=== PATIENT | female | born 1970 | race Caucasian/White ===

== ENCOUNTER 2017-02-03 15:54 | Emergency (ER) | payer MEDICARE, MEDICAID ==
[~2017-02-03] VITALS: Ht 165.1 cm; Wt 93.0 kg
[~2017-02-03 15:54] MED LIST: ACCURETIC1 TAB OR; ALPRAZOLAM1 MG PO; AMBIEN5 MG PO; AMITRIPTYLIN25 MG PO; AMOXICILLIN/PO500 MG PO; AMOXICILLIN500 MG PO; ANTIVERT OR; ASPIRIN EC81 MG PO; ATARAX; ATARAX PO; ATIVAN0.5 MG PO; ATIVAN1 M1 OR; BACTRIM DS1 TAB PO; BENAZEPRIL10 MG PO; BUPAP 50-300 MG1 TAB PO; BUPROPION150 M1 PO; BUSPIRONE5 MG PO; CLEOCIN300 MG PO; CORICIDN HBP OR; CRESTOR10 MG PO; FIORICET PO; FISH OIL1000 MG PO; FLAGYL500 MG OR; FLEXERIL OR; FLEXERIL PO; FLEXERIL10 MG PO; FOLIC ACID1 MG PO; HYDROCHLOROT12.5 M1 OR; HYDROCHLOROT25 MG PO; HYDROXYZ HCL25 MG OR; HYDROXYZ PAM25 MG OR; HYDROXYZINE HCL50 MG PO; LEVOTHYROXIN50 MC1 PO; LEVOTHYROXIN50 MCG PO; LISINOP/HCTZ1 TAB OR; LORATADINE10 M1 PO; LORAZEPAM0.5 MG PO; LORTAB 10 PO; LORTAB 10-325 M1 TAB PO; LORTAB 1010 MG PO; LORTAB5 PO; LOTENSIN HCT1 TAB PO; METFORMIN500 MG PO; METOPROL TAR50 MG PO; METOPROLOL25 M1 PO; MIRTAZAPINE15 MG PO; NITROGLYCER0.4 MG PO; NITROSTAT0.4 MG SL; OMEGA-31000 MG OR; ONDANSETRON4 MG PO; PANCOF EXP OR; PERCOCET 5/321 COMBO PO; PERCOCET 5/325M1 TAB PO; PERCOCET1 TA2 PO; PRAVACHOL80 MG PO; PRAVASTATIN SOD20 MG PO; PREDNISONE5 MG OR; PREVPAC OR; PRILOSEC20 MG PO; PROAIR HFA IN; PROTONIX40 MG PO; PROVENTIL IN; PYRIDIUM200 MG PO; QUINAPRIL20 MG PO; QVAR80 MCG IN; RANITIDINE150 M1 PO; RANITIDINE150 MG PO; SIMVASTATIN40 MG PO; SUCRALFATE1 GM PO; TIZANIDINE4 MG PO; TOPIRAMATE50 MG PO; TORADOL OR; TRAMADOL HCL50 MG PO; TRICOR145 MG PO; TYLENOL325 MG PO; TYLENOL500 MG OR; ULTRAM50 M1 PO; ULTRAM50 MG OR; VISTARIL50 MG PO; VITAMIN B-12100 MCG PO; WELLBUTRIN SR150 MG PO; XANAX0.25 MG OR; ZITHROMAX250 MG OR; ZOCOR20 MG OR; ZOCOR20 MG PO; ZOFRAN ODT4 MG PO; ZPAK OR
[2017-02-03 16:32] LABS: HEMATOCRIT 39.4 % (37.0-47.0); HEMOGLOBIN 13.2 g/dl (12.0-16.0); IMMATURE GRANULOCYTES 0.2 % (0.0-1.0); MEAN CELL VOLUME 92.5 fL CALC (80.0-100.0); MEAN CORPUSCULAR HGB CONC 33.5 g/L CALC (32.0-36.0); NEUT# 9.68 thou/uL (2.00-7.15); RED BLOOD COUNT 4.26 mill/uL (4.20-5.60)
[2017-02-03] MEDS ORDERED: BENAZEPRIL10 MG PO (16:41)
[2017-02-03 17:07] LABS: ALBUMIN 4.3 g/dL (3.2-5.0); ALKALINE PHOSPHATASE 83 u/l (38-126); ANION GAP 15 (6-22 (CALC)); BILIRUBIN, TOTAL 0.6 mg/dL (0.0-1.4); BUN 12 mg/dL (7-17); BUN/CREATININE RATIO 17 (12-20 (CALC)); CALCIUM 9.1 mg/dL (8.4-10.2); CARBON DIOXIDE 23 mmol/l (22-30); CHLORIDE 108 mmol/l (95-108); CREATININE 0.7 mg/dL (0.5-1.0); GFR > 60 ML/MIN (>=60 (CALC)); GFR FOR AFR.AMER. > 60 ML/MIN (>=60 (CALC)); GLUCOSE 88 mg/dL (65-105); POTASSIUM 4.2 mmol/l (3.5-5.1); SGOT/AST 39 u/l (14-36); SGPT/ALT 37 u/l (9-52); SODIUM 142 mmol/l (137-146); TOTAL PROTEIN 7.5 g/dL (6.3-8.2)
[2017-02-03 17:18] LABS: MYOGLOBIN 29 ng/mL (0 - 62)
[2017-02-03] MEDS ORDERED: ZITHROMAX250 MG PO (17:28)
[2017-02-03] MEDS ORDERED: PREDNISONE10 MG PO (17:28)
[2017-02-03] MEDS ORDERED: TYLENOL # 31 TA1 PO (17:28)
[2017-02-03 17:35] VITALS: BP 109/49
== END 2017-02-03 17:58 | disposition home or self-care (01) ==
LOC: ED 15:54
PROVIDERS: Emergency Medicine
DX: J20.9 Acute bronchitis, unspecified (principal); R06.02 Shortness of breath; R05 Cough; R06.2 Wheezing; F17.210 Nicotine dependence, cigarettes, uncomplicated; I10 Essential (primary) hypertension

== ENCOUNTER 2017-02-05 13:07 | Emergency (ER) | payer MEDICARE, MEDICAID ==
[~2017-02-05] VITALS: Ht 165.1 cm; Wt 100.0 kg
[~2017-02-05 13:07] MED LIST changes: +PREDNISONE10 MG PO; +TYLENOL # 31 TA1 PO; +ZITHROMAX250 MG PO
[2017-02-05 13:44] VITALS: BP 158/70
== END 2017-02-05 13:46 | disposition home or self-care (01) ==
LOC: ED 13:07
DX: J44.0 Chronic obstructive pulmonary disease with (acute) lower respiratory infection (principal); J20.9 Acute bronchitis, unspecified; E78.5 Hyperlipidemia, unspecified; F41.9 Anxiety disorder, unspecified; K21.9 Gastro-esophageal reflux disease without esophagitis; E11.40 Type 2 diabetes mellitus with diabetic neuropathy, unspecified; I10 Essential (primary) hypertension; E03.9 Hypothyroidism, unspecified; F17.210 Nicotine dependence, cigarettes, uncomplicated

== ENCOUNTER 2017-02-08 16:18 | Inpatient (IN) | payer MEDICARE, MEDICAID ==
[~2017-02-08] VITALS: Ht 165.1 cm; Wt 92.1 kg
[2017-02-08 17:19] LABS: HEMATOCRIT 42.6 % (37.0-47.0); HEMOGLOBIN 13.5 g/dl (12.0-16.0); IMMATURE GRANULOCYTES 0.9 % (0.0-1.0); MEAN CELL VOLUME 95.1 fL CALC (80.0-100.0); MEAN CORPUSCULAR HGB 30.1 pG CALC (26.0-32.0); MEAN CORPUSCULAR HGB CONC 31.7 g/L CALC (32.0-36.0); NEUT# 8.54 thou/uL (2.00-7.15); RED BLOOD COUNT 4.48 mill/uL (4.20-5.60); RED CELL DISTRI WIDTH 12.9 % (11.5-15.5)
[2017-02-08] MEDS ORDERED: LEVOTHYROXIN125 MCG PO (17:37)
[2017-02-08 18:31] LABS: ALBUMIN 4.3 g/dL (3.2-5.0); ALKALINE PHOSPHATASE 85 u/l (38-126); ANION GAP 14 (6-22 (CALC)); BILIRUBIN, TOTAL 0.3 mg/dL (0.0-1.4); BUN 13 mg/dL (7-17); BUN/CREATININE RATIO 16 (12-20 (CALC)); CALCIUM 9.4 mg/dL (8.4-10.2); CARBON DIOXIDE 27 mmol/l (22-30); CHLORIDE 107 mmol/l (95-108); CREATININE 0.8 mg/dL (0.5-1.0); GFR > 60 ML/MIN (>=60 (CALC)); GFR FOR AFR.AMER. > 60 ML/MIN (>=60 (CALC)); GLUCOSE 94 mg/dL (65-105); POTASSIUM 3.3 mmol/l (3.5-5.1); SGOT/AST 21 u/l (14-36); SGPT/ALT 30 u/l (9-52); SODIUM 144 mmol/l (137-146); TOTAL PROTEIN 7.9 g/dL (6.3-8.2)
[2017-02-08 18:45] LABS: MYOGLOBIN 28 ng/mL (0 - 62)
[2017-02-08 21:24] VITALS: BP 132/81
[2017-02-08 21:26] LABS: BARBITURATES NEGATIVE (NEGATIVE); COCAINE NEGATIVE (NEGATIVE); METHADONE NEGATIVE (NEGATIVE); OXCYCODONE NEGATIVE (NEGATIVE); TETRAHYDROCANNABIONOL NEGATIVE (NEGATIVE); TRICYLIC ANTIDEPRESSANTS NEGATIVE (NEGATIVE)
[2017-02-09] VITALS (7 sets, daily range): BP systolic 119–152; BP diastolic 82–87
[2017-02-09 04:54] LABS: ANION GAP 17 (6-22 (CALC)); BUN 12 mg/dL (7-17); BUN/CREATININE RATIO 19 (12-20 (CALC)); CALCIUM 8.9 mg/dL (8.4-10.2); CARBON DIOXIDE 23 mmol/l (22-30); CHLORIDE 109 mmol/l (95-108); CREATININE 0.7 mg/dL (0.5-1.0); GFR > 60 ML/MIN (>=60 (CALC)); GFR FOR AFR.AMER. > 60 ML/MIN (>=60 (CALC)); GLUCOSE 215 mg/dL (65-105); MAGNESIUM 2.1 mg/dL (1.6-2.3); POTASSIUM 4.4 mmol/l (3.5-5.1); SODIUM 145 mmol/l (137-146)
[2017-02-09 05:22] LABS: TSH, 3RD GENERATION 0.15 uIU/mL (0.47 - 4.68)
[2017-02-10 04:49] VITALS: BP 125/80
[2017-02-10 05:00] LABS: HEMATOCRIT 39.4 % (37.0-47.0); HEMOGLOBIN 12.5 g/dl (12.0-16.0); IMMATURE GRANULOCYTES 4.4 % (0.0-1.0); MEAN CELL VOLUME 95.4 fL CALC (80.0-100.0); MEAN CORPUSCULAR HGB 30.3 pG CALC (26.0-32.0); MEAN CORPUSCULAR HGB CONC 31.7 g/L CALC (32.0-36.0); NEUT# 12.21 thou/uL (2.00-7.15); RED BLOOD COUNT 4.13 mill/uL (4.20-5.60)
[2017-02-10 05:56] LABS: ANION GAP 17 (6-22 (CALC)); BUN 16 mg/dL (7-17); BUN/CREATININE RATIO 23 (12-20 (CALC)); CALCIUM 9.2 mg/dL (8.4-10.2); CARBON DIOXIDE 23 mmol/l (22-30); CHLORIDE 107 mmol/l (95-108); CREATININE 0.7 mg/dL (0.5-1.0); GFR > 60 ML/MIN (>=60 (CALC)); GFR FOR AFR.AMER. > 60 ML/MIN (>=60 (CALC)); GLUCOSE 241 mg/dL (65-105); POTASSIUM 4.4 mmol/l (3.5-5.1); SODIUM 142 mmol/l (137-146)
[2017-02-10 07:23] VITALS: BP 134/86
[2017-02-10] MEDS ORDERED: IPRATROPIU0.5 MG/3 M NEB (09:33)
[2017-02-10] MEDS ORDERED: ROBITUSSIN AC10 ML PO (09:33)
[2017-02-10] MEDS ORDERED: PREDNISONE10 MG PO (09:33)
[2017-02-10] MEDS ORDERED: LOSARTAN POT50 MG PO (09:33)
[2017-02-10] MEDS ORDERED: NEBULIZER COMPRESSOR (09:33)
[2017-02-10] MEDS ORDERED: DOXYCYCL HYC100 MG PO (09:33)
[2017-02-10 11:21] VITALS: BP 126/78
== END 2017-02-10 14:44 | disposition home or self-care (01) | DRG 192 ==
LOC: ENPENDDIS → ED 16:18 → ED-I 17:35 → ED 17:54 → MS2 17:55
PROVIDERS: Emergency Medicine; ADMIT Internal Medicine; ATTEND Internal Medicine
DX: J44.0 Chronic obstructive pulmonary disease with (acute) lower respiratory infection (principal); I10 Essential (primary) hypertension; J20.9 Acute bronchitis, unspecified; F17.210 Nicotine dependence, cigarettes, uncomplicated; E11.9 Type 2 diabetes mellitus without complications; E03.9 Hypothyroidism, unspecified; E78.5 Hyperlipidemia, unspecified; F32.9 Major depressive disorder, single episode, unspecified; F41.9 Anxiety disorder, unspecified; Z85.42 Personal history of malignant neoplasm of other parts of uterus; Z79.84 Long term (current) use of oral hypoglycemic drugs
CPT/HCPCS: G0378

== ENCOUNTER 2017-07-03 11:56 | Observation (INO) | payer MEDICARE, MEDICAID ==
[~2017-07-03] VITALS: Ht 165.1 cm; Wt 94.5 kg
[~2017-07-03 11:56] MED LIST changes: +DOXYCYCL HYC100 MG PO; +IPRATROPIU0.5 MG/3 M NEB; +LEVOTHYROXIN125 MCG PO; +LOSARTAN POT50 MG PO; +NEBULIZER COMPRESSOR; +ROBITUSSIN AC10 ML PO
--- NOTE | 2017-07-03 12:08 | NUR ---
PT RETURNED TO WAITING ROOM AND ADVISED OF WAIT TIME FOR CONTINUED CARE IN STABLE CONDITION.
--- NOTE | 2017-07-03 13:19 | NUR ---
PT ADVISED OF CONTINUE WAIT TIME VOICES UNDERSTANDING.
--- NOTE | 2017-07-03 13:45 | NUR ---
PT TO ROOM 5 W/STEADY GAIT.
[2017-07-03 15:29] LABS: HEMATOCRIT 42.4 % (37.0-47.0); HEMOGLOBIN 13.6 g/dl (12.0-16.0); IMMATURE GRANULOCYTES 0.3 % (0.0-1.0); MEAN CELL VOLUME 95.7 fL CALC (80.0-100.0); MEAN CORPUSCULAR HGB 30.7 pG CALC (26.0-32.0); MEAN CORPUSCULAR HGB CONC 32.1 g/L CALC (32.0-36.0); NEUT# 4.97 thou/uL (2.00-7.15); RED BLOOD COUNT 4.43 mill/uL (4.20-5.60); RED CELL DISTRI WIDTH 12.4 % (11.5-15.5)
--- NOTE | 2017-07-03 15:29 | NUR ---
PT REPORTS SOB. RESP EVEN AND UNLABORED. SATS 99% RA. LUNGS CTA. PT STATES SHE HAS VERY BAD ANXIETY AND IS OUT OF HER ANXIETY MEDICINE.
[2017-07-03 15:33] LABS: ALBUMIN 4.4 g/dL (3.2-5.0); ALKALINE PHOSPHATASE 64 u/l (38-126); ANION GAP 14 (6-22 (CALC)); BILIRUBIN, TOTAL 0.6 mg/dL (0.0-1.4); BUN 9 mg/dL (7-17); BUN/CREATININE RATIO 12 (12-20 (CALC)); CALCIUM 9.5 mg/dL (8.4-10.2); CARBON DIOXIDE 26 mmol/l (22-30); CHLORIDE 110 mmol/l (95-108); CREATININE 0.7 mg/dL (0.5-1.0); GFR > 60 ML/MIN (>=60 (CALC)); GFR FOR AFR.AMER. > 60 ML/MIN (>=60 (CALC)); GLUCOSE 100 mg/dL (65-105); POTASSIUM 4.1 mmol/l (3.5-5.1); SGOT/AST 25 u/l (14-36); SGPT/ALT 34 u/l (9-52); SODIUM 147 mmol/l (137-146); TOTAL PROTEIN 7.4 g/dL (6.3-8.2)
[2017-07-03 15:45] LABS: MYOGLOBIN 21 ng/mL (0 - 62)
[2017-07-03 16:01] LABS: URINE BILIRUBIN - DIPSTICK NEGATIVE (NEGATIVE); URINE BLOOD DIPSTICK NEGATIVE (NEGATIVE); URINE COLOR YELLOW; URINE GLUCOSE - DIPSTICK NEGATIVE (NEGATIVE); URINE KETONE NEGATIVE (NEGATIVE); URINE LEUK ESTERASE NEGATIVE (NEGATIVE); URINE NITRITE - DIPSTICK NEGATIVE (Negative); URINE PROTEIN - DIPSTICK NEGATIVE (NEG-TRACE); URINE UROBILINOGEN - DIPSTICK 0.2 E.U./dL (0.2)
[2017-07-03 16:02] LABS: URINE CLARITY HAZY
--- NOTE | 2017-07-03 16:19 | NUR ---
MEDICATED FOR ANXIETY ORDERED. TOOK PO MEDICATION W/O INCIDENT, CDAUGHTER AT BEDSIDE, WILL CONTINUE TO MONITOR.
--- NOTE | 2017-07-03 16:50 | NUR ---
REPORT RECIEVED FROM TEJ MCCABE.
--- NOTE | 2017-07-03 17:45 | NUR ---
CALLED MS FOR REPORT, NURSE WILL CALL BACK.
[2017-07-03 18:00] VITALS: BP 158/88
--- NOTE | 2017-07-03 18:10 | NUR ---
REPORT CALLED TO GINA RICE.
--- NOTE | 2017-07-03 18:20 | NUR ---
Admission Note Report Given to: GINA RICE Transported by: Wheelchair X Stretcher Transported with: X Nurse Transporter X Patent IV O2 X Self Propelled Dredge Operator
--- NOTE | 2017-07-03 18:20 | NUR ---
PT ARRIVED FROM ER VIA STRETCHER ACCOMPANIED BY STAFF. IV SITE IS FREE FROM REDNESS OR EDEMA. TELE MONITOR IN PLACE.
--- NOTE | 2017-07-03 18:45 | NUR ---
ASSESSMENT IS COMPLETED: C/O MIDSTERNAL CHEST PRESSURE. AND HEADACHE. IV SITE IS FREE FROM REDNESS OR EDEMA. CONTINUE TO OSBERVE AND MONITOR.
--- NOTE | 2017-07-03 20:51 | NUR ---
PATIENT C/O SEVERE THROBBING HEADACHE AND BACK PAIN-10/10 ON PAIN SCALE. PATIENT MEDICATED WITH ULTRAM 50 MG PO ORDERED. MRSA SWAB OBTAINED FOR H/O MRSA AND PATIENT PLACED ON CONTACT PRECAUTIONS PER PROTOCAL. CALL LIGHT IN REACH. WILL CONT TO MONITOR.
[2017-07-03 23:45] VITALS: BP 126/60
--- NOTE | 2017-07-04 00:30 | NUR ---
TROP DRAWN. PATIENT CONT TO C/O BACK PAIN-DOESN'T APPEAR TO BE IN ACUTE DISTRESS. INFORMED TOO EARLY FOR PAIN MEDS AT THIS TIME-[id number]. CALL LIGHT IN REACH. WILL CONT TO MONITOR.
--- NOTE | 2017-07-04 04:00 | NUR ---
APPEARS SLEEPING AT THIS TIME WITH EYES CLOSED. CALL LIGHT IN REACH. WILL CONT TO MONITOR.
[2017-07-04 05:19] VITALS: BP 114/78
[2017-07-04 06:17] LABS: CHOLESTEROL HDL RATIO 2.7 (<4.4 (CALC))
[2017-07-04 07:37] VITALS: BP 120/83
--- NOTE | 2017-07-04 07:37 | NUR ---
ASSESSMENT IS COMPLETED: PT CONTINUES TO C/O HEADACHE. IV SITE IS FREE FROM REDNESS OR EDEMA. TELE MONITOR IN PLACE. CONTINUE TO OSBERVE AND MONITOR.
[2017-07-04 11:00] VITALS: BP 126/80
[2017-07-04] MEDS ORDERED: LORTAB 5/3255 MG PO (11:59)
--- NOTE | 2017-07-04 12:30 | NUR ---
PT DISCHARGED WITH FAMILY
--- NOTE | 2017-07-04 12:30 | NUR ---
PT'S IV SITE IS DISCONTINUED CATHETER INTACT. NO REDNESS OR EDEMA. FAMILY IN THE ROOM. DISCHARGE INSTRUCTIONS GIVEN AND VERBALIZED UNDERSTANDING.
--- NOTE | 2017-07-04 12:45 | NUR ---
Discharge instructions given. Patient verbalizes understanding of same. Discharged in stable condition via Wheelchair to Home with family. All belongings sent with pt.
== END 2017-07-04 12:41 | disposition home or self-care (01) ==
LOC: ED 11:56 → ED-I 16:23 → ED 16:40 → MS2 16:41
PROVIDERS: Emergency Medicine; ADMIT Internal Medicine; ATTEND Internal Medicine
DX: R07.89 Other chest pain (principal); I10 Essential (primary) hypertension; E78.5 Hyperlipidemia, unspecified; K21.9 Gastro-esophageal reflux disease without esophagitis; E11.40 Type 2 diabetes mellitus with diabetic neuropathy, unspecified; E03.9 Hypothyroidism, unspecified; F17.210 Nicotine dependence, cigarettes, uncomplicated; I25.2 Old myocardial infarction; E78.00 Pure hypercholesterolemia, unspecified; G43.909 Migraine, unspecified, not intractable, without status migrainosus; F41.9 Anxiety disorder, unspecified; F32.9 Major depressive disorder, single episode, unspecified; E87.1 Hypo-osmolality and hyponatremia; E87.8 Other disorders of electrolyte and fluid balance, not elsewhere classified; G89.4 Chronic pain syndrome; Z79.84 Long term (current) use of oral hypoglycemic drugs; Z85.42 Personal history of malignant neoplasm of other parts of uterus; Z79.899 Other long term (current) drug therapy; R06.02 Shortness of breath

== ENCOUNTER 2017-08-11 13:33 | Emergency (ER) | payer OTHER, MEDICARE, MEDICAID ==
[~2017-08-11] VITALS: Ht 165.1 cm; Wt 90.9 kg
[~2017-08-11 13:33] MED LIST changes: +LORTAB 5/3255 MG PO
[2017-08-11 15:04] LABS: HEMATOCRIT 40.1 % (37.0-47.0); HEMOGLOBIN 12.6 g/dl (12.0-16.0); IMMATURE GRANULOCYTES 0.3 % (0.0-1.0); MEAN CELL VOLUME 97.3 fL CALC (80.0-100.0); MEAN CORPUSCULAR HGB 30.6 pG CALC (26.0-32.0); MEAN CORPUSCULAR HGB CONC 31.4 g/L CALC (32.0-36.0); NEUT# 4.27 thou/uL (2.00-7.15); RED BLOOD COUNT 4.12 mill/uL (4.20-5.60); RED CELL DISTRI WIDTH 13.1 % (11.5-15.5)
[2017-08-11 15:07] LABS: URINE BILIRUBIN - DIPSTICK NEGATIVE (NEGATIVE); URINE BLOOD DIPSTICK NEGATIVE (NEGATIVE); URINE COLOR YELLOW; URINE GLUCOSE - DIPSTICK 250 mg/dL (NEGATIVE); URINE KETONE NEGATIVE (NEGATIVE); URINE LEUK ESTERASE NEGATIVE (NEGATIVE); URINE NITRITE - DIPSTICK NEGATIVE (Negative); URINE PROTEIN - DIPSTICK NEGATIVE (NEG-TRACE); URINE SPECIFIC GRAVITY 1.015; URINE UROBILINOGEN - DIPSTICK 0.2 E.U./dL (0.2)
[2017-08-11 15:08] LABS: BARBITURATES NEGATIVE (NEGATIVE); COCAINE NEGATIVE (NEGATIVE); METHADONE NEGATIVE (NEGATIVE); OXCYCODONE NEGATIVE (NEGATIVE); TETRAHYDROCANNABIONOL NEGATIVE (NEGATIVE); TRICYLIC ANTIDEPRESSANTS NEGATIVE (NEGATIVE)
[2017-08-11 15:09] LABS: URINE CLARITY CLEAR
[2017-08-11 15:20] LABS: ALBUMIN 3.8 g/dL (3.2-5.0); ALKALINE PHOSPHATASE 110 u/l (38-126); ANION GAP 16 (6-22 (CALC)); BILIRUBIN, TOTAL 0.3 mg/dL (0.0-1.4); BUN 19 mg/dL (7-17); BUN/CREATININE RATIO 21 (12-20 (CALC)); CARBON DIOXIDE 23 mmol/l (22-30); CHLORIDE 105 mmol/l (95-108); CREATININE 0.9 mg/dL (0.5-1.0); GFR > 60 ML/MIN (>=60 (CALC)); GFR FOR AFR.AMER. > 60 ML/MIN (>=60 (CALC)); GLUCOSE 277 mg/dL (65-105); POTASSIUM 3.9 mmol/l (3.5-5.1); SGOT/AST 34 u/l (14-36); SGPT/ALT 44 u/l (9-52); SODIUM 141 mmol/l (137-146); TOTAL PROTEIN 6.6 g/dL (6.3-8.2)
[2017-08-11 15:26] LABS: ETHYL ALCOHOL 0 mg/dl (0-30)
[2017-08-11 15:35] LABS: MYOGLOBIN 20 ng/mL (0 - 62)
[2017-08-11 15:51] LABS: TSH, 3RD GENERATION 1.55 uIU/mL (0.47 - 4.68)
[2017-08-11] MEDS ORDERED: HALOPERIDOL0.5 MG PO (16:20)
[2017-08-11] MEDS ORDERED: GABAPENTIN100 MG PO (16:22)
[2017-08-11] MEDS ORDERED: AMBIEN5 MG PO (16:22)
[2017-08-11] MEDS ORDERED: RANITIDINE150 M1 PO (16:23)
[2017-08-11] MEDS ORDERED: MAXZIDE-2537.5 MG/TA PO (16:24)
[2017-08-11] MEDS ORDERED: EMBEDA 20-0.8 M1 CAP PO (16:24)
[2017-08-11 18:20] VITALS: BP 109/64
== END 2017-08-11 18:20 | disposition home or self-care (01) | DRG 918 ==
LOC: ED 13:33
PROVIDERS: Emergency Medicine
PROC: 0T9B70Z Drainage of Bladder with Drainage Device, Via Natural or Artificial Opening (ICD-10-PCS; principal; 2017-08-11)
DX: T40.2X1A Poisoning by other opioids, accidental (unintentional), initial encounter (principal); M54.2 Cervicalgia; R22.43 Localized swelling, mass and lump, lower limb, bilateral; R41.82 Altered mental status, unspecified; Z72.0 Tobacco use; Y92.009 Unspecified place in unspecified non-institutional (private) residence as the place of occurrence of the external cause; V49.9XXA Car occupant (driver) (passenger) injured in unspecified traffic accident, initial encounter; Y92.410 Unspecified street and highway as the place of occurrence of the external cause

== ENCOUNTER 2017-10-04 20:57 | Emergency (ER) | payer MEDICARE, MEDICAID ==
[~2017-10-04] VITALS: Ht 165.1 cm; Wt 91.0 kg
[~2017-10-04 20:57] MED LIST changes: +EMBEDA 20-0.8 M1 CAP PO; +GABAPENTIN100 MG PO; +HALOPERIDOL0.5 MG PO; +MAXZIDE-2537.5 MG/TA PO
[2017-10-04 22:40] LABS: HEMATOCRIT 41.5 % (37.0-47.0); HEMOGLOBIN 13.6 g/dl (12.0-16.0); IMMATURE GRANULOCYTES 0.4 % (0.0-1.0); MEAN CELL VOLUME 94.3 fL CALC (80.0-100.0); MEAN CORPUSCULAR HGB 30.9 pG CALC (26.0-32.0); MEAN CORPUSCULAR HGB CONC 32.8 g/L CALC (32.0-36.0); NEUT# 4.57 thou/uL (2.00-7.15); RED BLOOD COUNT 4.4 mill/uL (4.20-5.60); RED CELL DISTRI WIDTH 12.9 % (11.5-15.5)
[2017-10-04 22:56] LABS: ALBUMIN 4.2 g/dL (3.2-5.0); ALKALINE PHOSPHATASE 99 u/l (38-126); ANION GAP 15 (6-22 (CALC)); BILIRUBIN, TOTAL 0.2 mg/dL (0.0-1.4); BUN 14 mg/dL (7-17); BUN/CREATININE RATIO 19 (12-20 (CALC)); CARBON DIOXIDE 26 mmol/l (22-30); CHLORIDE 107 mmol/l (95-108); CREATININE 0.7 mg/dL (0.5-1.0); GFR > 60 ML/MIN (>=60 (CALC)); GFR FOR AFR.AMER. > 60 ML/MIN (>=60 (CALC)); SGOT/AST 17 u/l (14-36); SGPT/ALT 28 u/l (9-52); SODIUM 144 mmol/l (137-146); TOTAL PROTEIN 6.9 g/dL (6.3-8.2)
[2017-10-04] MEDS ORDERED: LORTAB 1010 MG PO (23:11)
[2017-10-04 23:20] VITALS: BP 132/77
== END 2017-10-04 23:20 | disposition home or self-care (01) ==
LOC: ED 20:57
PROVIDERS: Emergency Medicine
DX: E11.40 Type 2 diabetes mellitus with diabetic neuropathy, unspecified (principal); I10 Essential (primary) hypertension; M19.90 Unspecified osteoarthritis, unspecified site; E07.9 Disorder of thyroid, unspecified; F17.210 Nicotine dependence, cigarettes, uncomplicated

== ENCOUNTER 2017-10-14 14:47 | Emergency (ER) | payer MEDICARE, MEDICAID ==
[~2017-10-14] VITALS: Ht 165.1 cm; Wt 100.0 kg
[2017-10-14] MEDS ORDERED: DIFLUNISAL500 MG PO (15:16)
[2017-10-14 15:20] VITALS: BP 126/86
[2017-10-15] MEDS ORDERED: LORTAB 1010 MG PO (21:29)
[2017-10-15] MEDS ORDERED: BACTRIM DS1 TAB PO (22:48)
== END 2017-10-14 15:20 | disposition home or self-care (01) ==
LOC: ED 14:47
DX: G89.29 Other chronic pain (principal); M79.605 Pain in left leg; M79.604 Pain in right leg; I10 Essential (primary) hypertension; M19.90 Unspecified osteoarthritis, unspecified site; E11.40 Type 2 diabetes mellitus with diabetic neuropathy, unspecified

== ENCOUNTER 2017-10-15 16:29 | Emergency (ER) | payer OTHER, MEDICARE, MEDICAID ==
[~2017-10-15] VITALS: Ht 165.1 cm; Wt 105.0 kg
[~2017-10-15 16:29] MED LIST changes: +DIFLUNISAL500 MG PO
[2017-10-15 17:45] LABS: HEMATOCRIT 42.9 % (37.0-47.0); IMMATURE GRANULOCYTES 0.7 % (0.0-1.0); MEAN CELL VOLUME 94.3 fL CALC (80.0-100.0); MEAN CORPUSCULAR HGB 30.8 pG CALC (26.0-32.0); MEAN CORPUSCULAR HGB CONC 32.6 g/L CALC (32.0-36.0); NEUT# 14.36 thou/uL (2.00-7.15); RED BLOOD COUNT 4.55 mill/uL (4.20-5.60); RED CELL DISTRI WIDTH 12.6 % (11.5-15.5)
[2017-10-15 18:07] LABS: ALBUMIN 4.3 g/dL (3.2-5.0); ALKALINE PHOSPHATASE 96 u/l (38-126); ANION GAP 16 (6-22 (CALC)); BILIRUBIN, TOTAL 0.4 mg/dL (0.0-1.4); BUN 20 mg/dL (7-17); BUN/CREATININE RATIO 26 (12-20 (CALC)); CALCIUM 10.2 mg/dL (8.4-10.2); CARBON DIOXIDE 24 mmol/l (22-30); CHLORIDE 107 mmol/l (95-108); CREATININE 0.8 mg/dL (0.5-1.0); GFR > 60 ML/MIN (>=60 (CALC)); GFR FOR AFR.AMER. > 60 ML/MIN (>=60 (CALC)); GLUCOSE 139 mg/dL (65-105); POTASSIUM 4.4 mmol/l (3.5-5.1); SGOT/AST 43 u/l (14-36); SGPT/ALT 46 u/l (9-52); SODIUM 144 mmol/l (137-146); TOTAL PROTEIN 6.9 g/dL (6.3-8.2)
[2017-10-15] MEDS ORDERED: LORTAB 1010 MG PO (21:29)
[2017-10-15 22:30] VITALS: BP 112/73
[2017-10-15 22:31] LABS: URINE BILIRUBIN - DIPSTICK NEGATIVE (NEGATIVE); URINE BLOOD DIPSTICK SMALL (NEGATIVE); URINE COLOR YELLOW; URINE GLUCOSE - DIPSTICK 250 mg/dL (NEGATIVE); URINE KETONE NEGATIVE (NEGATIVE); URINE LEUK ESTERASE NEGATIVE (Negative); URINE NITRITE - DIPSTICK NEGATIVE (Negative); URINE PROTEIN - DIPSTICK NEGATIVE (NEG-TRACE); URINE SPECIFIC GRAVITY 1.015; URINE UROBILINOGEN - DIPSTICK 0.2 E.U./dL (0.2)
[2017-10-15 22:45] LABS: URINE CLARITY CLEAR; URINE SQUAMOUS EPITHELIAL CELL FEW EPI/hpf (0-FEW); URINE WBC 0-2 WBC/hpf (0-5)
[2017-10-15] MEDS ORDERED: BACTRIM DS1 TAB PO (22:48)
== END 2017-10-15 22:55 | disposition home or self-care (01) | DRG 999 ==
LOC: ED 16:29
PROVIDERS: Emergency Medicine
PROC: 2W3CX1Z Immobilization of Right Lower Arm using Splint (ICD-10-PCS; principal; 2017-10-15)
DX: S52.501A Unspecified fracture of the lower end of right radius, initial encounter for closed fracture (principal); S32.019A Unspecified fracture of first lumbar vertebra, initial encounter for closed fracture; E11.40 Type 2 diabetes mellitus with diabetic neuropathy, unspecified; S32.039A Unspecified fracture of third lumbar vertebra, initial encounter for closed fracture; S32.029A Unspecified fracture of second lumbar vertebra, initial encounter for closed fracture; S16.1XXA Strain of muscle, fascia and tendon at neck level, initial encounter; N39.0 Urinary tract infection, site not specified; S52.612A Displaced fracture of left ulna styloid process, initial encounter for closed fracture; I10 Essential (primary) hypertension; M19.90 Unspecified osteoarthritis, unspecified site; F17.210 Nicotine dependence, cigarettes, uncomplicated; V49.50XA Passenger injured in collision with unspecified motor vehicles in traffic accident, initial encounter
CPT/HCPCS: Q9967

== ENCOUNTER 2017-10-16 18:40 | Emergency (ER) | payer OTHER, MEDICARE, MEDICAID ==
[~2017-10-16] VITALS: Ht 165.1 cm; Wt 90.9 kg
[2017-10-16 20:34] VITALS: BP 137/87
[2017-10-16 22:41] LABS: HEMATOCRIT 40.7 % (37.0-47.0); HEMOGLOBIN 13.2 g/dl (12.0-16.0); IMMATURE GRANULOCYTES 0.3 % (0.0-1.0); MEAN CELL VOLUME 94.7 fL CALC (80.0-100.0); MEAN CORPUSCULAR HGB 30.7 pG CALC (26.0-32.0); MEAN CORPUSCULAR HGB CONC 32.4 g/L CALC (32.0-36.0); NEUT# 8.35 thou/uL (2.00-7.15); RED BLOOD COUNT 4.3 mill/uL (4.20-5.60)
[2017-10-16 22:52] LABS: ANION GAP 17 (6-22 (CALC)); BUN 12 mg/dL (7-17); BUN/CREATININE RATIO 18 (12-20 (CALC)); CARBON DIOXIDE 24 mmol/l (22-30); CHLORIDE 103 mmol/l (95-108); CREATININE 0.6 mg/dL (0.5-1.0); GFR > 60 ML/MIN (>=60 (CALC)); GFR FOR AFR.AMER. > 60 ML/MIN (>=60 (CALC)); POTASSIUM 4.8 mmol/l (3.5-5.1); SODIUM 139 mmol/l (137-146)
== END 2017-10-17 03:57 | disposition home or self-care (01) | DRG 561 ==
LOC: ED 18:40
PROVIDERS: Family Medicine
DX: S52.501D Unspecified fracture of the lower end of right radius, subsequent encounter for closed fracture with routine healing (principal); M25.431 Effusion, right wrist; S32.029D Unspecified fracture of second lumbar vertebra, subsequent encounter for fracture with routine healing; S32.039D Unspecified fracture of third lumbar vertebra, subsequent encounter for fracture with routine healing; S32.049D Unspecified fracture of fourth lumbar vertebra, subsequent encounter for fracture with routine healing; V49.50XD Passenger injured in collision with unspecified motor vehicles in traffic accident, subsequent encounter

== ENCOUNTER 2017-10-23 12:47 | Emergency (ER) | payer OTHER, MEDICARE, MEDICAID ==
[~2017-10-23] VITALS: Ht 165.1 cm; Wt 90.9 kg
[2017-10-23] MEDS ORDERED: ULTRAM50 M1 PO (14:46)
[2017-10-23 14:50] VITALS: BP 112/66
== END 2017-10-23 14:50 | disposition home or self-care (01) | DRG 556 ==
LOC: ED 12:47
DX: M79.601 Pain in right arm (principal); E11.40 Type 2 diabetes mellitus with diabetic neuropathy, unspecified; I10 Essential (primary) hypertension; M19.90 Unspecified osteoarthritis, unspecified site; F17.210 Nicotine dependence, cigarettes, uncomplicated; V89.2XXA Person injured in unspecified motor-vehicle accident, traffic, initial encounter

== ENCOUNTER 2018-01-15 09:55 | Emergency (ER) | payer MEDICARE, MEDICAID ==
[~2018-01-15] VITALS: Ht 165.1 cm; Wt 90.9 kg
[2018-01-15 10:50] LABS: HEMATOCRIT 44.8 % (37.0-47.0); HEMOGLOBIN 14.4 g/dl (12.0-16.0); IMMATURE GRANULOCYTES 0.3 % (0.0-1.0); MEAN CELL VOLUME 90.3 fL CALC (80.0-100.0); MEAN CORPUSCULAR HGB CONC 32.1 g/L CALC (32.0-36.0); NEUT# 5.98 thou/uL (2.00-7.15); RED BLOOD COUNT 4.96 mill/uL (4.20-5.60); RED CELL DISTRI WIDTH 13.8 % (11.5-15.5)
[2018-01-15 11:11] LABS: ANION GAP 17 (6-22 (CALC)); BUN 10 mg/dL (7-17); BUN/CREATININE RATIO 17 (12-20 (CALC)); CARBON DIOXIDE 25 mmol/l (22-30); CHLORIDE 103 mmol/l (95-108); CREATININE 0.6 mg/dL (0.5-1.0); GFR > 60 ML/MIN (>=60 (CALC)); GFR FOR AFR.AMER. > 60 ML/MIN (>=60 (CALC)); SODIUM 142 mmol/l (137-146)
[2018-01-15 11:12] LABS: POTASSIUM 3.4 mmol/l (3.5-5.1)
[2018-01-15 11:47] LABS: URINE BILIRUBIN - DIPSTICK NEGATIVE (NEGATIVE); URINE COLOR YELLOW; URINE GLUCOSE - DIPSTICK NEGATIVE (NEGATIVE); URINE KETONE TRACE mg/dL (NEGATIVE); URINE LEUK ESTERASE NEGATIVE (NEGATIVE); URINE NITRITE - DIPSTICK NEGATIVE (Negative); URINE PH 5.5 (4.5-8.0); URINE PROTEIN - DIPSTICK NEGATIVE (NEG-TRACE); URINE SPECIFIC GRAVITY >=1.030; URINE UROBILINOGEN - DIPSTICK 0.2 E.U./dL (0.2)
[2018-01-15 11:51] LABS: COCAINE NEGATIVE (NEGATIVE); METHADONE NEGATIVE (NEGATIVE); TETRAHYDROCANNABIONOL NEGATIVE (NEGATIVE); URINE BLOOD DIPSTICK NEGATIVE (NEGATIVE); URINE CLARITY CLEAR
[2018-01-15 11:52] LABS: BARBITURATES NEGATIVE (NEGATIVE); OXCYCODONE NEGATIVE (NEGATIVE); TRICYLIC ANTIDEPRESSANTS NEGATIVE (NEGATIVE)
[2018-01-15] MEDS ORDERED: VISTARIL 50MG C50 M1 PO (11:55)
[2018-01-15 12:16] VITALS: BP 146/75
== END 2018-01-15 12:05 | disposition home or self-care (01) ==
LOC: ED 09:55
PROVIDERS: Family Medicine
DX: F41.9 Anxiety disorder, unspecified (principal); I10 Essential (primary) hypertension; E11.40 Type 2 diabetes mellitus with diabetic neuropathy, unspecified; M19.90 Unspecified osteoarthritis, unspecified site; F17.210 Nicotine dependence, cigarettes, uncomplicated; F11.90 Opioid use, unspecified, uncomplicated; F15.90 Other stimulant use, unspecified, uncomplicated; Z91.14 Patient's other noncompliance with medication regimen; R06.02 Shortness of breath; R42 Dizziness and giddiness

== ENCOUNTER 2018-07-27 15:35 | Emergency (ER) | payer MEDICARE, MEDICAID ==
[~2018-07-27] VITALS: Ht 165.1 cm; Wt 81.8 kg
[~2018-07-27 15:35] MED LIST changes: +VISTARIL 50MG C50 M1 PO
[2018-07-27] MEDS ORDERED: LASIX 40 MG40 MG/TAB PO (15:57)
[2018-07-27] MEDS ORDERED: GABAPENTIN300 M2 PO (15:58)
[2018-07-27] MEDS ORDERED: BUPROPION HCL300 MG PO (15:58)
[2018-07-27 17:13] VITALS: BP 105/73
[2018-07-27 17:27] LABS: HEMATOCRIT 41.9 % (37.0-47.0); HEMOGLOBIN 14.1 g/dl (12.0-16.0); IMMATURE GRANULOCYTES 0.3 % (0.0-5.0); MEAN CELL VOLUME 91.5 fL CALC (80.0-100.0); MEAN CORPUSCULAR HGB 30.8 pG CALC (26.0-32.0); MEAN CORPUSCULAR HGB CONC 33.7 g/L CALC (32.0-36.0); NEUT# 6.3 thou/uL (2.00-7.15); RED BLOOD COUNT 4.58 mill/uL (4.20-5.60); RED CELL DISTRI WIDTH 12.6 % (11.5-15.5)
[2018-07-27 17:32] LABS: ALBUMIN 3.9 g/dL (3.2-5.0); ALKALINE PHOSPHATASE 77 u/l (38-126); BILIRUBIN, TOTAL 0.6 mg/dL (0.0-1.4); BUN 12 mg/dL (7-17); BUN/CREATININE RATIO 14 (12-20 (CALC)); CHLORIDE 100 mmol/l (95-108); CPK 43 u/l (30-165); CREATININE 0.8 mg/dL (0.5-1.0); GFR > 60 ML/MIN (>=60 (CALC)); GFR FOR AFR.AMER. > 60 ML/MIN (>=60 (CALC)); POTASSIUM 3.7 mmol/l (3.5-5.1); SGOT/AST 27 u/l (14-36); SODIUM 141 mmol/l (137-146); TOTAL PROTEIN 6.8 g/dL (6.3-8.2)
[2018-07-27 17:33] LABS: ANION GAP 12 (6-22 (CALC)); CARBON DIOXIDE 33 mmol/l (22-30)
== END 2018-07-27 19:20 | disposition home or self-care (01) ==
LOC: ED 15:35
DX: R53.1 Weakness (principal); G89.29 Other chronic pain; I10 Essential (primary) hypertension; E11.40 Type 2 diabetes mellitus with diabetic neuropathy, unspecified; M19.90 Unspecified osteoarthritis, unspecified site; F17.210 Nicotine dependence, cigarettes, uncomplicated

== ENCOUNTER 2019-07-29 19:03 | Emergency (ER) | payer OTHER, MEDICARE, MEDICAID ==
[~2019-07-29] VITALS: Ht 165.1 cm; Wt 96.0 kg
[~2019-07-29 19:03] MED LIST changes: +BUPROPION HCL300 MG PO; +GABAPENTIN300 M2 PO; +LASIX 40 MG40 MG/TAB PO
[2019-07-29] MEDS ORDERED: ULTRAM50 MG PO (20:45)
[2019-07-29 20:58] VITALS: BP 102/67
[2019-07-29] MEDS ORDERED: FLEXERIL PO (21:06)
== END 2019-07-29 21:15 | disposition home or self-care (01) | DRG 605 ==
LOC: ED 19:03
DX: S40.012A Contusion of left shoulder, initial encounter (principal); S20.212A Contusion of left front wall of thorax, initial encounter; S70.12XA Contusion of left thigh, initial encounter; S63.501A Unspecified sprain of right wrist, initial encounter; E11.40 Type 2 diabetes mellitus with diabetic neuropathy, unspecified; I10 Essential (primary) hypertension; F17.210 Nicotine dependence, cigarettes, uncomplicated; V49.40XA Driver injured in collision with unspecified motor vehicles in traffic accident, initial encounter

== ENCOUNTER 2019-08-14 14:21 | Emergency (ER) | payer MEDICARE, MEDICAID ==
[~2019-08-14] VITALS: Ht 165.1 cm; Wt 95.0 kg
[~2019-08-14 14:21] MED LIST changes: +ULTRAM50 MG PO
[2019-08-14 17:33] LABS: HEMATOCRIT 41.1 % (37.0-47.0); IMMATURE GRANULOCYTES 0.8 % (0.0-5.0); MEAN CELL VOLUME 94.5 fL CALC (80.0-100.0); MEAN CORPUSCULAR HGB 29.9 pG CALC (26.0-32.0); MEAN CORPUSCULAR HGB CONC 31.6 g/L CALC (32.0-36.0); NEUT# 6.38 thou/uL (2.00-7.15); RED BLOOD COUNT 4.35 mill/uL (4.20-5.60); RED CELL DISTRI WIDTH 13.5 % (11.5-15.5)
[2019-08-14 17:55] LABS: ANION GAP 18 (6-22 (CALC)); BUN 17 mg/dL (7-17); BUN/CREATININE RATIO 16 (12-20 (CALC)); CARBON DIOXIDE 31 mmol/l (22-30); CHLORIDE 94 mmol/l (95-108); CREATININE 1.1 mg/dL (0.5-1.0); ETHYL ALCOHOL 0 mg/dl (0-30); GFR 53 ML/MIN (>=60 (CALC)); GFR FOR AFR.AMER. > 60 ML/MIN (>=60 (CALC)); POTASSIUM 3.5 mmol/l (3.5-5.1); SODIUM 139 mmol/l (137-146)
[2019-08-14] MEDS ORDERED: CLONAZEPAM1 MG PO (19:08)
[2019-08-14 19:19] VITALS: BP 102/69
== END 2019-08-14 19:37 | disposition home or self-care (01) ==
LOC: ED 14:21
PROVIDERS: Family Medicine
PROC: 0HQ0XZZ Repair Scalp Skin, External Approach (ICD-10-PCS; principal; 2019-08-14)
DX: S06.0X0A Concussion without loss of consciousness, initial encounter (principal); S01.01XA Laceration without foreign body of scalp, initial encounter; M54.5 Low back pain; M54.6 Pain in thoracic spine; M54.2 Cervicalgia; I10 Essential (primary) hypertension; E11.40 Type 2 diabetes mellitus with diabetic neuropathy, unspecified; F17.210 Nicotine dependence, cigarettes, uncomplicated; W07.XXXA Fall from chair, initial encounter; Y92.009 Unspecified place in unspecified non-institutional (private) residence as the place of occurrence of the external cause

== ENCOUNTER 2019-08-16 23:20 | Emergency (ER) | payer MEDICARE, MEDICAID ==
[~2019-08-16] VITALS: Ht 165.1 cm; Wt 90.0 kg
[~2019-08-16 23:20] MED LIST changes: +CLONAZEPAM1 MG PO
[2019-08-17 00:07] LABS: HEMATOCRIT 35.7 % (37.0-47.0); HEMOGLOBIN 11.5 g/dl (12.0-16.0); IMMATURE GRANULOCYTES 0.6 % (0.0-5.0); MEAN CELL VOLUME 93.2 fL CALC (80.0-100.0); MEAN CORPUSCULAR HGB CONC 32.2 g/L CALC (32.0-36.0); NEUT# 5.65 thou/uL (2.00-7.15); RED BLOOD COUNT 3.83 mill/uL (4.20-5.60); RED CELL DISTRI WIDTH 13.4 % (11.5-15.5)
[2019-08-17 00:32] LABS: ALBUMIN 4.1 g/dL (3.2-5.0); ALKALINE PHOSPHATASE 88 u/l (38-126); ANION GAP 14 (6-22 (CALC)); BILIRUBIN, TOTAL 0.4 mg/dL (0.0-1.4); BUN 18 mg/dL (7-17); BUN/CREATININE RATIO 13 (12-20 (CALC)); CARBON DIOXIDE 35 mmol/l (22-30); CHLORIDE 93 mmol/l (95-108); CREATININE 1.4 mg/dL (0.5-1.0); ETHYL ALCOHOL 0 mg/dl (0-30); GFR 40 ML/MIN (>=60 (CALC)); GFR FOR AFR.AMER. 48 ML/MIN (>=60 (CALC)); SGOT/AST 28 u/l (14-36); SODIUM 139 mmol/l (137-146); TOTAL PROTEIN 7.6 g/dL (6.3-8.2)
[2019-08-17 00:43] LABS: MYOGLOBIN 27 ng/mL (0 - 62)
[2019-08-17 01:35] LABS: URINE BILIRUBIN - DIPSTICK NEGATIVE (NEGATIVE); URINE BLOOD DIPSTICK NEGATIVE (NEGATIVE); URINE COLOR YELLOW; URINE GLUCOSE - DIPSTICK NEGATIVE (NEGATIVE); URINE KETONE NEGATIVE (NEGATIVE); URINE LEUK ESTERASE NEGATIVE (NEGATIVE); URINE NITRITE - DIPSTICK NEGATIVE (Negative); URINE PROTEIN - DIPSTICK NEGATIVE (NEG-TRACE); URINE SPECIFIC GRAVITY >=1.030; URINE UROBILINOGEN - DIPSTICK 0.2 E.U./dL (0.2)
[2019-08-17 01:39] LABS: COCAINE NEGATIVE (NEGATIVE); METHADONE NEGATIVE (NEGATIVE); TETRAHYDROCANNABIONOL NEGATIVE (NEGATIVE)
[2019-08-17 01:40] LABS: BARBITURATES NEGATIVE (NEGATIVE); OXCYCODONE NEGATIVE (NEGATIVE); TRICYLIC ANTIDEPRESSANTS POSITIVE (NEGATIVE)
[2019-08-17 02:51] VITALS: BP 92/56
== END 2019-08-17 02:51 | disposition home or self-care (01) ==
LOC: ED 23:20
PROVIDERS: Family Medicine
DX: S06.0X9A Concussion with loss of consciousness of unspecified duration, initial encounter (principal); S00.93XA Contusion of unspecified part of head, initial encounter; J44.9 Chronic obstructive pulmonary disease, unspecified; I10 Essential (primary) hypertension; E11.40 Type 2 diabetes mellitus with diabetic neuropathy, unspecified; F17.200 Nicotine dependence, unspecified, uncomplicated; E87.6 Hypokalemia; W19.XXXA Unspecified fall, initial encounter

== ENCOUNTER 2019-08-22 15:05 | Emergency (ER) | payer MEDICARE, MEDICAID ==
[~2019-08-22] VITALS: Ht 165.1 cm; Wt 91.0 kg
[2019-08-22 18:25] VITALS: BP 130/69
== END 2019-08-22 18:25 | disposition home or self-care (01) ==
LOC: ED 15:05
DX: S01.01XD Laceration without foreign body of scalp, subsequent encounter (principal); X58.XXXD Exposure to other specified factors, subsequent encounter; R68.84 Jaw pain; I10 Essential (primary) hypertension; E11.40 Type 2 diabetes mellitus with diabetic neuropathy, unspecified; F17.210 Nicotine dependence, cigarettes, uncomplicated

== ENCOUNTER 2019-10-30 | Emergency (ER) | payer MEDICARE, MEDICAID ==
[~2019-10-30] MED LIST changes: -BUPROPION HCL300 MG PO; +BUPROPN HCL300 MG PO; -LASIX 40 MG40 MG/TAB PO
[2019-10-31] MEDS ORDERED: NAPROXEN500 MG PO ×2 (00:01)
== END 2019-10-31 00:12 | disposition home or self-care (01) ==
DX: S83.91XA Sprain of unspecified site of right knee, initial encounter (principal); S80.211A Abrasion, right knee, initial encounter; I10 Essential (primary) hypertension; E11.40 Type 2 diabetes mellitus with diabetic neuropathy, unspecified; F17.210 Nicotine dependence, cigarettes, uncomplicated; W01.0XXA Fall on same level from slipping, tripping and stumbling without subsequent striking against object, initial encounter; Y92.512 Supermarket, store or market as the place of occurrence of the external cause

== ENCOUNTER 2020-03-22 18:48 | Observation (INO) | payer MEDICARE, MEDICAID ==
[~2020-03-22] VITALS: Ht 165.1 cm; Wt 89.6 kg
[~2020-03-22 18:48] MED LIST changes: +NAPROXEN500 MG PO
--- NOTE | 2020-03-22 18:50 | NUR ---
AMBULATED TO ROOM
--- NOTE | 2020-03-22 19:45 | NUR ---
UNABLE TO URINATE AT THIS TIME.
[2020-03-22 19:57] LABS: IMMATURE GRANULOCYTES 0.3 % (0.0-5.0); MEAN CELL VOLUME 91.3 fL CALC (80.0-100.0); MEAN CORPUSCULAR HGB 29.6 pG CALC (26.0-32.0); MEAN CORPUSCULAR HGB CONC 32.4 g/dL CAL (32.0-36.0); NEUT# 6.28 thou/uL (2.00-7.15); RED BLOOD COUNT 5.27 mill/uL (4.20-5.60); RED CELL DISTRI WIDTH 13.3 % (11.5-15.5)
[2020-03-22 19:58] LABS: HEMATOCRIT 48.1 % (37.0-47.0); HEMOGLOBIN 15.6 g/dl (12.0-16.0)
[2020-03-22 20:09] LABS: ALBUMIN 4.8 g/dL (3.2-5.0); ALKALINE PHOSPHATASE 88 u/l (38-126); AMYLASE 68 u/l (30-110); BUN 14 mg/dL (7-17); BUN/CREATININE RATIO 16 (12-20 (CALC)); CARBON DIOXIDE 29 mmol/l (22-30); CHLORIDE 93 mmol/l (95-108); CREATININE 0.9 mg/dL (0.5-1.0); GFR > 60 ML/MIN (>=60 (CALC)); GFR FOR AFR.AMER. > 60 ML/MIN (>=60 (CALC)); LIPASE 48 u/l (23-300); SGOT/AST 39 u/l (14-36); SODIUM 133 mmol/l (137-146); TOTAL PROTEIN 8.2 g/dL (6.3-8.2)
[2020-03-22 20:22] LABS: MYOGLOBIN 40 ng/mL (0 - 62)
[2020-03-22 20:23] LABS: ANION GAP 15 (6-22 (CALC)); POTASSIUM 3.8 mmol/l (3.5-5.1)
--- NOTE | 2020-03-22 20:30 | NUR ---
RESTING QUIETLY AWAITING TEST RESULTS.
--- NOTE | 2020-03-22 21:27 | NUR ---
NO CHANGE IN EXAM. VSS.
--- NOTE | 2020-03-22 22:39 | NUR ---
UNABLE TO DETERMINE WHEN PT LAST TOOK HOME MEDS AND ACCURACY OF LIST.
--- NOTE | 2020-03-22 23:22 | NUR ---
URINE SPECIMEN OBTAINED.
[2020-03-22 23:35] LABS: URINE BLOOD DIPSTICK NEGATIVE (NEGATIVE); URINE COLOR YELLOW; URINE GLUCOSE - DIPSTICK 250 mg/dL (NEGATIVE); URINE KETONE NEGATIVE (NEGATIVE); URINE LEUK ESTERASE NEGATIVE (NEGATIVE); URINE NITRITE - DIPSTICK NEGATIVE (Negative); URINE PROTEIN - DIPSTICK NEGATIVE (NEG-TRACE); URINE SPECIFIC GRAVITY <=1.005; URINE UROBILINOGEN - DIPSTICK 0.2 E.U./dL (0.2)
[2020-03-22 23:46] LABS: URINE BILIRUBIN - DIPSTICK SMALL (NEGATIVE)
--- NOTE | 2020-03-23 00:19 | NUR ---
Admission Note Report Given to: TEJ SOUZA Transported by: X Wheelchair Stretcher Transported with: X Nurse Transporter X Patent IV X O2 X Plunger Shovel Operator Location: ICU X MS2
--- NOTE | 2020-03-23 00:36 | NUR ---
TO MS VIA W/C
[2020-03-23 00:50] VITALS: BP 123/81
--- NOTE | 2020-03-23 02:53 | NUR ---
PT ARRIVED TO THE UNIT VIA WHEELCHAIR TRANSPORT AND ABLE TO TRANSFER SELF TO BED WITH STANDBY ASSIST. PT IS ALERT AND ORIENTED AND ABLE TO VERBALIZE NEEDS. RESPIRATIONS ARE EVEN AND NONLABORED. HEART RYHTHM REGULAR AND HAS TELEMETRY IN PLACE. ABDOMEN IS DISTENDED BUT SOFT TO TOUCH ABD BOWEL SOUNDS ARE ACTIVE IN ALL QUADRANTS. PT STATES SHE HAD BM YESTERDAY AM. PEDAL PULSE ARE PRESENT AND EQUAL HAND SQL DATABASE DEVELOPER. COMPLAINED OF HEADACHE AND CHEST DISCOMFORT AT 7 ON SCALE 1-[address] PER MD ORDERS AND XNAX GIVEN FOR ANXIETY. NEW ORDER FROM ER MD TO GIVE MORPHINE 2GM X 1 AND TYLENOL PRN AND ORDERS NOTED. PT IS CONTINENT OF B/B. BEDSIDE EQUIPMENT EXPLAINED TO PT AND SHE STATES SHE UNDERSTANDS. CALL LIGHT IS WITHIN REACH AND TOLERATING FLUIDS BY MOUTH WELL. WILL CONTINUE TO OBSERVE.
[2020-03-23 04:16] VITALS: BP 116/79
--- NOTE | 2020-03-23 06:59 | NUR ---
PT IN BED WITH EYES OPEN AND ABLE TO VERBALIZE NEEDS. STATES NO CHEST PAIN AT THIS TIME. ALSO STATES HEADACHE HAS IMPROVED AT 3-4 ON SCALE OF 1-10 WITH 10 GREATEST. NS RUNNING AT 100ML/HR AND TOLERATING WELL. WEIGHT THIS AM 197. CONTINENT OF B/B AND BSC AT BEDSIDE AND NEEDS ASSIST WITH TRANSFERS. CALL LIGHT WITHIN REACH. BED IN LOLWEST POSITION. WILL CONTINUE TO OBSERVE
[2020-03-23 07:57] VITALS: BP 104/74
--- NOTE | 2020-03-23 10:10 | NUR ---
PT WITH INCREASED ANXIETY THROUGHOUT THE MORNING AND CURRENTLY C/O AN ANXIETY ATTACK; NO SIGNS OF RESPIRATORY DISTRESS. PT REPORT HISTORY OF ANXIETY AND TAKES XANAX AT HOME. NEW ORDER FOR XANAX RECEIVED AND ADMINISTERED AT THIS TIME.
--- NOTE | 2020-03-23 10:15 | NUR ---
PTS VITALS AND ASSESSMNET COMPLETED AT THIS TIME. PT IS ALERT AND ORIENTED AND ABLE TO VERBALIZE NEEDS. RESPIRATIONS ARE EVEN AND NONLABORED. HEART RYHTHM REGULAR AND HAS TELEMETRY IN PLACE. ABDOMEN IS DISTENDED BUT SOFT TO TOUCH ABD BOWEL SOUNDS ARE ACTIVE IN ALL QUADRANTS.PT STATES SHE HAD BM YESTERDAY. PEDAL PULSE ARE PRESENT AND EQUAL HAND STEEL HANDLER. PT IS CONTINENT OF B/B. BEDSIDE EQUIPMENT EXPLAINED TO PT AND SHE STATES SHE UNDERSTANDS. WILL CONTINUE TO MONITOR.
[2020-03-23 10:40] LABS: C-REACTIVE PROTEIN 1.5 mg/dL (0-0.9)
[2020-03-23] MEDS ORDERED: LEXAPRO20 MG PO ×2 (10:58→10:59)
[2020-03-23] MEDS ORDERED: TRAZODONE100 MG PO (11:04)
[2020-03-23] MEDS ORDERED: RISPERDAL1 M1 PO (11:05)
[2020-03-23] MEDS ORDERED: MAXZIDE-2537.5 MG/TA PO (11:06)
[2020-03-23] MEDS ORDERED: ATORVASTATIN CA10 MG PO (11:07)
[2020-03-23] MEDS ORDERED: VENTOLIN HFA IN (11:07)
[2020-03-23] MEDS ORDERED: TRICOR145 MG PO (11:08)
[2020-03-23] MEDS ORDERED: METFORMIN HCL1000 MG PO (11:09)
--- NOTE | 2020-03-23 12:00 | NUR ---
RAPID IGG/IGM TEST REPEATED WITH NEGATIVE RESULTS. COVID SWAB OBTAINED AND SENT TO LAB. AFTERNOON [facility] 308; POPULATION HEALTH MANAGER NOTIFIED AND NEW ORDER RECEIVED TO BEGIN SLIDING SCALE [facility].
--- NOTE | 2020-03-23 13:00 | NUR ---
Patient is screened for rehab intervention and no needs are identified at this time
--- NOTE | 2020-03-23 13:31 | NUR ---
PT IN BED WITH EYES OPEN AND ABLE TO VERBALIZE NEEDS. STATES NO CHEST PAIN AT THIS TIME. ALSO STATES HEADACHE HAS IMPROVED AT 3-4 ON SCALE OF 1-10 WITH 10 GREATEST. PT REPORTS IV SITE IS TENDER. WILL RELOCATE IV SITE.
[2020-03-23 15:00] VITALS: BP 113/76
--- NOTE | 2020-03-23 15:10 | NUR ---
REMOVED PTS NITROGLYCERIN PATCH. PT STILL COMPLAINS OF HEADACHE AFTER ADMINISTRATION OF PRN TYLENOL.
[2020-03-23 18:45] VITALS: BP 123/87
--- NOTE | 2020-03-23 19:00 | NUR ---
RECEIVED REPORT FROM NURSE ALY PATIENT IN BED TALKING ON THE PHON E BREATHING EVEN UNLABORED, CALL LIGHT AT REACH.
--- NOTE | 2020-03-23 20:20 | NUR ---
PATIENT ALERT ORIENTED, WITH ONGOING IV NS @ 100CC/HR INFUSING WELL ON RFA, DENIES CHEST DISCOMFORTS, BS 340MG/DL, REMAINS ON TELE, LBM 03/22, CALL LIGHT AT REACH.
--- NOTE | 2020-03-23 20:30 | NUR ---
NOTIFIED DR. CASEY ABOUT PATIENTS REQUEST FOR A SLEEP AID, WITH ORDERS MADE.
--- NOTE | 2020-03-23 21:40 | NUR ---
PATIENT APPEARS TO BE SLEEPING WITH EYES CLOSED AT THIS TIME, BREATHING UNLBORED CALL LIGHT AT REACH.
[2020-03-23 23:25] VITALS: BP 110/81
--- NOTE | 2020-03-24 00:39 | NUR ---
PATIENT APPEARS TO BE SLEEPING AT THIS TIME, REMAINS ON O2 @ 2LPM VIA NC, BREATHING EVEN UNLABORED CALL LIGHT AT REACH.
[2020-03-24 03:45] VITALS: BP 117/65
--- NOTE | 2020-03-24 03:52 | NUR ---
PATIENT APPEARS TO BE SLEEPING WITH EYES CLOSED, REMAINS ON O2 @ 2LPM VIA NC BREATHING EVEN UNLABORED, CALL LIGHT AT REACH.
[2020-03-24 08:15] VITALS: BP 113/75
--- NOTE | 2020-03-24 08:43 | NUR ---
PER DOCTOR FAJARDO, MS PATINO IS BEING TRANSFERED TO ROOM 283.
--- NOTE | 2020-03-24 08:47 | NUR ---
RECEIVED REPORT FROM NURSE CARROLL. ASSESMENT AND VITALS COMPLETE. PT ALERT AND ORIENTED TIMES 3. PT WEARING TELE RUNNING SB IN THE 60'S WITH AN AV BLOCK. BREATHS ARE EVEN AND UNLABORED ON 2 LITERS OF OXYGEN. PT REMARKED ON MILD CHEST PAIN. NO C/O OF PRIOR VAGINAL BLEEDING OR HEADACHES.PT IS AFEBRILE. NO DISTRESS NOTED. DENIES NEED/PAIN. ENCOURAGED TO CALL FOR ANY NEEDS. CALL LIGHT WITHIN REACH.
--- NOTE | 2020-03-24 09:05 | NUR ---
PER ALY BURNHAM, PTS HOME MEDICATION WAS INVENTORIED IN THE PRESENCE OF PT, LABELED AND BROUGHT TO PHARMACY.
[2020-03-24] MEDS ORDERED: POTASSIUM CHLO10 MEQ PO (10:54)
[2020-03-24 10:55] VITALS: BP 106/71
[2020-03-24] MEDS ORDERED: NITROGLYCERIN0.4 MG SL (10:55)
[2020-03-24 15:10] VITALS: BP 100/59
--- NOTE | 2020-03-24 15:18 | NUR ---
PT RESTING COMFORTABLY. PRN GIVEN FOR ANXIETY. IV NS RUNINNING AT 125 PER HR. IV SITE APPEARS HEALTHY. PT ENCOURAGED TO CALL FOR ANY NEEDS. WILL CONTINUE TO OBSERVE.
--- NOTE | 2020-03-24 19:00 | NUR ---
RECEIVED REPORT FROM NURSE ALY PATIENT APPEARS TO BE SLEEPING REMAINS ON ISOLATION CALL LIGHT AT REACH.
[2020-03-24 19:30] VITALS: BP 110/71
--- NOTE | 2020-03-24 20:30 | NUR ---
PATIENT ALERT ORIENTED, WITH ONGOING IV NS @ 125 CC/HR INFUSING WELL ON LFA, REMAINS ON TELE SR 68 WITH 1ST AVB, DENIES PAIN AND DISCOMFORTS LBM 03/24, BREATHING SHALLOW UNLABORED CALL LIGHT AT REACH.
[2020-03-24 23:30] VITALS: BP 120/56
--- NOTE | 2020-03-25 | NUR ---
PATIENT RESTING IN BED WITH EYES CLOSED, BREATHING EVEN UNLABORED CALL LIGHT AT REACH.
[2020-03-25 03:30] VITALS: BP 109/74
--- NOTE | 2020-03-25 04:28 | NUR ---
PATIENT RESTING IN BED WITH EYES CLOSED BREATHING EVEN UNLABORED, CALL LIGHT AT REACH.
[2020-03-25 05:48] LABS: MEAN CORPUSCULAR HGB CONC 30.9 g/dL CAL (32.0-36.0); RED BLOOD COUNT 4.03 mill/uL (4.20-5.60); RED CELL DISTRI WIDTH 13.2 % (11.5-15.5)
[2020-03-25 05:55] LABS: HEMATOCRIT 37.9 % (37.0-47.0); HEMOGLOBIN 11.7 g/dl (12.0-16.0)
[2020-03-25 06:24] LABS: BUN 8 mg/dL (7-17); BUN/CREATININE RATIO 14 (12-20 (CALC)); C-REACTIVE PROTEIN 1.3 mg/dL (0-0.9); CARBON DIOXIDE 25 mmol/l (22-30); CREATININE 0.6 mg/dL (0.5-1.0); GFR > 60 ML/MIN (>=60 (CALC)); GFR FOR AFR.AMER. > 60 ML/MIN (>=60 (CALC)); POTASSIUM 3.5 mmol/l (3.5-5.1); SODIUM 135 mmol/l (137-146)
[2020-03-25 06:41] LABS: ANION GAP 7 (6-22 (CALC)); CHLORIDE 107 mmol/l (95-108)
[2020-03-25 08:08] VITALS: BP 122/77
--- NOTE | 2020-03-25 08:08 | NUR ---
RECIEVED REPORT FROM TEJ TIM. PT RESTING IN HIGH FOWLERS POSITION UPON ENTERING ROOM. INTRODUCED SELF TO PT AND DISCUSSED POC. ASSESSMENT AND VITALS COMPLETED AT THIS TIME. BP 122/77, HR 60, O2 97% ON ROOM AIR . RESPIRATIONS ARE EVEN AND UNALBORED WITH NO SIGNS OF DISTRESS. LUNG SOUNDS ARE DIMINISHED, PT DENIES ANY SOB. HEART RHYTHM IS NORMAL WITH TELE IN PLACE. BOWEL SOUNDS ARE HYPOACTIVE IN ALL QUADRANTS, LAST REPORTED BM 03/24/20. RADIAL PULSES ARE STRONG AND PEDAL PULSES ARE WEAK, BOTH WITH NORMAL CAPILLARY REFILL. #20G RUNNING WITH NS AT 125ML ORDERED, SITE APPEARS HEALTHY AND PATENT. PT DENIES OF ANY PAIN OR DISCOMFORTS AT THIS TIME. ALL SAFETY PRECAUITIONS ARE IN PLACE WITH CALL LIGHT IN REACH. WILL CONTINUE TO MONITOR
[2020-03-25] MEDS ORDERED: METFORMIN HCL1000 MG PO (09:47)
[2020-03-25] MEDS ORDERED: ALPRAZOLAM0.25 MG PO (09:49)
[2020-03-25 12:00] VITALS: BP 100/68
--- NOTE | 2020-03-25 12:00 | NUR ---
PT RESTING IN HIGH FOLWERS POSITION WATCHING TV. RESPIRATIONS ARE EVEN AND UNLABORED WITH NO SIGNS OF DISTRESS. PT REQUEST XANAX AT THIS TIME, XANAX TO BE ADMINSTERED. PT DENEIS ANY PAINS OR DISCOMFORTS AT THSI TIME. ALL SAFETY PRECAUTIONS ARE IN PLACE WITH CALL LIGHT IN REACH. WILL CONTINUE TO MONITOR
--- NOTE | 2020-03-25 13:26 | NUR ---
PT EDUCATED ON DISCHARGE INSTRUCTIONS AND METFORMIN. PT VERBALIZED UNDERSTANDING. IV REMOVED WITH CATHATER STILL INTACT. PT TOLERATED WELL. PT INFORMED WRITTER THAT THE ONLY WAY HOME WAS HER SISTER THAT IS NOT PICKING UP. APPROVAL FROM [employer] TEJ LAMAR THAT [facility] WOULD PAY FOR CAB RIDE HOME. AWAITING TRANSPORTATION AT THIIS TIME. ALL SAFTEY PREACUTIONS ARE IN PLACE WITH CALL LIGHT IN REACH. WILL CONTINUE TO MONITOR
--- NOTE | 2020-03-25 14:20 | NUR ---
Discharge instructions given. Patient verbalizes understanding of same. Discharged in stable condition via Taxi to Home with staff. All belongings sent with pt. PT LEFT MED SURG ROOM IN STABLE CONDITION VIA WHEELCHAIR WITH ALL DISCHARGE INSTRUCTIONS AND BELONGINGS ACCOMPAINED BY MALENA MARK
== END 2020-03-25 14:20 | disposition home or self-care (01) ==
LOC: ED 18:48 → ED-I 22:16 → ED 23:24 → MS2 23:25
PROVIDERS: Emergency Medicine; Nurse Practitioner; Nurse Practitioner Family; ADMIT Internal Medicine; ATTEND Internal Medicine
DX: R07.9 Chest pain, unspecified (principal); N93.9 Abnormal uterine and vaginal bleeding, unspecified; E03.9 Hypothyroidism, unspecified; E11.65 Type 2 diabetes mellitus with hyperglycemia; I10 Essential (primary) hypertension; E11.40 Type 2 diabetes mellitus with diabetic neuropathy, unspecified; J44.9 Chronic obstructive pulmonary disease, unspecified; K21.9 Gastro-esophageal reflux disease without esophagitis; R04.2 Hemoptysis; F41.9 Anxiety disorder, unspecified; T38.1X6A Underdosing of thyroid hormones and substitutes, initial encounter; T38.3X6A Underdosing of insulin and oral hypoglycemic [antidiabetic] drugs, initial encounter; F17.210 Nicotine dependence, cigarettes, uncomplicated; Z90.710 Acquired absence of both cervix and uterus; Z91.128 Patient's intentional underdosing of medication regimen for other reason; Z85.42 Personal history of malignant neoplasm of other parts of uterus; Z20.828 Contact with and (suspected) exposure to other viral communicable diseases
CPT/HCPCS: G0378; J1650; Q9967

== ENCOUNTER 2020-04-08 16:33 | Emergency (ER) | payer MEDICARE, MEDICAID ==
[~2020-04-08] VITALS: Ht 165.1 cm; Wt 90.0 kg
[~2020-04-08 16:33] MED LIST changes: +ALPRAZOLAM0.25 MG PO; +ATORVASTATIN CA10 MG PO; +LEXAPRO20 MG PO; +METFORMIN HCL1000 MG PO; +NITROGLYCERIN0.4 MG SL; +POTASSIUM CHLO10 MEQ PO; +RISPERDAL1 M1 PO; +TRAZODONE100 MG PO; +VENTOLIN HFA IN
[2020-04-08] MEDS ORDERED: BACTRIM DS1 TAB PO (16:48)
[2020-04-08 17:38] VITALS: BP 110/58
[2020-04-08] MEDS ORDERED: TRAMADOL HYDROC50 M1 PO (17:40)
== END 2020-04-08 17:43 | disposition home or self-care (01) ==
LOC: ED 16:33
PROC: 0H97XZZ Drainage of Abdomen Skin, External Approach (ICD-10-PCS; principal; 2020-04-08)
DX: L02.211 Cutaneous abscess of abdominal wall (principal); I10 Essential (primary) hypertension; E11.40 Type 2 diabetes mellitus with diabetic neuropathy, unspecified; F17.200 Nicotine dependence, unspecified, uncomplicated; Z79.84 Long term (current) use of oral hypoglycemic drugs

== ENCOUNTER 2020-04-10 16:04 | Emergency (ER) | payer MEDICARE, MEDICAID ==
[~2020-04-10] VITALS: Ht 165.1 cm; Wt 90.0 kg
[~2020-04-10 16:04] MED LIST changes: +TRAMADOL HYDROC50 M1 PO
[2020-04-10 16:45] VITALS: BP 110/57
[2020-04-10] MEDS ORDERED: SYNTHROID175 MCG PO (16:53)
[2020-04-10] MEDS ORDERED: GABAPENTIN600 MG PO (16:53)
[2020-04-10] MEDS ORDERED: OMEPRAZOLE DR40 MG PO (16:54)
[2020-04-10] MEDS ORDERED: BUPROPION HCL150 M1 PO (16:55)
[2020-04-10] MEDS ORDERED: LASIX 40 MG TAB40 MG PO (16:58)
== END 2020-04-10 16:45 | disposition home or self-care (01) ==
LOC: ED 16:04
DX: Z48.01 Encounter for change or removal of surgical wound dressing (principal); I10 Essential (primary) hypertension; E11.40 Type 2 diabetes mellitus with diabetic neuropathy, unspecified; Z79.84 Long term (current) use of oral hypoglycemic drugs; F17.200 Nicotine dependence, unspecified, uncomplicated

== ENCOUNTER 2020-04-13 19:16 | Emergency (ER) | payer MEDICARE, MEDICAID ==
[~2020-04-13] VITALS: Ht 165.1 cm; Wt 90.9 kg
[~2020-04-13 19:16] MED LIST changes: +BUPROPION HCL150 M1 PO; +GABAPENTIN600 MG PO; +LASIX 40 MG TAB40 MG PO; +OMEPRAZOLE DR40 MG PO; +SYNTHROID175 MCG PO
[2020-04-13 19:50] VITALS: BP 94/60
== END 2020-04-13 19:50 | disposition home or self-care (01) ==
LOC: ED 19:16
DX: Z48.01 Encounter for change or removal of surgical wound dressing (principal); I10 Essential (primary) hypertension; E11.40 Type 2 diabetes mellitus with diabetic neuropathy, unspecified; F17.210 Nicotine dependence, cigarettes, uncomplicated; Z79.84 Long term (current) use of oral hypoglycemic drugs

== ENCOUNTER 2020-06-29 13:01 | Emergency (ER) | payer MEDICARE, MEDICAID ==
[~2020-06-29] VITALS: Ht 165.1 cm; Wt 90.0 kg
[2020-06-29] MEDS ORDERED: BACTRIM DS1 TAB PO (14:11)
[2020-06-29 14:19] VITALS: BP 148/88
[2020-07-02] MEDS ORDERED: METFORMIN500 M2 PO (18:13)
== END 2020-06-29 14:22 | disposition home or self-care (01) ==
LOC: ED 13:01
PROC: 0H95XZZ Drainage of Chest Skin, External Approach (ICD-10-PCS; principal; 2020-06-29)
DX: L02.213 Cutaneous abscess of chest wall (principal); B95.62 Methicillin resistant Staphylococcus aureus infection as the cause of diseases classified elsewhere; I10 Essential (primary) hypertension; E11.40 Type 2 diabetes mellitus with diabetic neuropathy, unspecified; F17.200 Nicotine dependence, unspecified, uncomplicated

== ENCOUNTER 2020-10-12 21:00 | Emergency (ER) | payer MEDICARE, MEDICAID ==
[~2020-10-12] VITALS: Ht 162.6 cm; Wt 70.0 kg
[~2020-10-12 21:00] MED LIST changes: +METFORMIN500 M2 PO
[2020-10-12 21:32] LABS: IMMATURE GRANULOCYTES 0.3 % (0.0-5.0); MEAN CORPUSCULAR HGB 29.4 pG CALC (26.0-32.0); MEAN CORPUSCULAR HGB CONC 33.8 g/dL CAL (32.0-36.0); NEUT# 6.91 thou/uL (2.00-7.15); RED BLOOD COUNT 5.14 mill/uL (4.20-5.60); RED CELL DISTRI WIDTH 13.4 % (11.5-15.5)
[2020-10-12 21:36] LABS: HEMATOCRIT 44.7 % (37.0-47.0); HEMOGLOBIN 15.1 g/dl (12.0-16.0)
[2020-10-12 21:51] LABS: ACT PARTIAL THROMBO TIME 23.9 SECONDS (20.0-32.5); INTERNATIONAL NORMALIZED RATIO 0.9 RATIO (0.7-1.3); PROTHROMBIN TIME 9.3 SECONDS (9.0-12.5)
[2020-10-12 21:52] LABS: HCG SERUM/URINE (NEG/POS) POSITIVE (NEGATIVE)
[2020-10-12 21:53] LABS: ALKALINE PHOSPHATASE 120 u/l (38-126); CARBON DIOXIDE 29 mmol/l (22-30); CREATININE 1.5 mg/dL (0.5-1.0); GFR 37 ML/MIN (>=60 (CALC)); GFR FOR AFR.AMER. 44 ML/MIN (>=60 (CALC)); LIPASE 45 u/l (23-300); SGOT/AST 27 u/l (14-36); TOTAL PROTEIN 8.1 g/dL (6.3-8.2)
[2020-10-12 21:55] LABS: ALBUMIN 4.8 g/dL (3.2-5.0); ANION GAP 18 (6-22 (CALC)); BILIRUBIN, TOTAL 0.7 mg/dL (0.0-1.4); BUN 38 mg/dL (7-17); BUN/CREATININE RATIO 25 (12-20 (CALC)); CHLORIDE 87 mmol/l (95-108); POTASSIUM 2.7 mmol/l (3.5-5.1); SODIUM 131 mmol/l (137-146)
[2020-10-12 22:03] LABS: D-DIMER 0.22 mg/L (0.19-0.60)
[2020-10-13] MEDS ORDERED: MEDDOSEPAK PO (00:07)
[2020-10-13] MEDS ORDERED: VENTOLIN HFA IN (00:07)
[2020-10-13] MEDS ORDERED: ZOFRAN4 MG/TAB PO (00:07)
[2020-10-13] MEDS ORDERED: ZPAK PO (00:07)
[2020-10-13 00:34] LABS: URINE BILIRUBIN - DIPSTICK NEGATIVE (NEGATIVE); URINE BLOOD DIPSTICK NEGATIVE (NEGATIVE); URINE COLOR YELLOW; URINE GLUCOSE - DIPSTICK NEGATIVE (NEGATIVE); URINE KETONE NEGATIVE (NEGATIVE); URINE LEUK ESTERASE NEGATIVE (NEGATIVE); URINE NITRITE - DIPSTICK NEGATIVE (Negative); URINE PH 5.5 (4.5-8.0); URINE PROTEIN - DIPSTICK NEGATIVE (NEG-TRACE); URINE UROBILINOGEN - DIPSTICK 0.2 E.U./dL (0.2)
[2020-10-13 00:41] VITALS: BP 109/63
== END 2020-10-13 01:00 | disposition home or self-care (01) ==
LOC: ED 21:00
DX: J45.909 Unspecified asthma, uncomplicated (principal); R11.2 Nausea with vomiting, unspecified; R19.7 Diarrhea, unspecified; E11.9 Type 2 diabetes mellitus without complications; I10 Essential (primary) hypertension; F17.200 Nicotine dependence, unspecified, uncomplicated; Z20.822 Contact with and (suspected) exposure to COVID-19

== ENCOUNTER 2020-10-17 17:22 | Observation (INO) | payer MEDICARE, MEDICAID ==
[~2020-10-17] VITALS: Ht 165.1 cm; Wt 82.7 kg
[~2020-10-17 17:22] MED LIST changes: +MEDDOSEPAK PO; +ZOFRAN4 MG/TAB PO; +ZPAK PO
[2020-10-17 18:52] LABS: HEMATOCRIT 43.3 % (37.0-47.0); HEMOGLOBIN 13.8 g/dl (12.0-16.0); IMMATURE GRANULOCYTES 0.9 % (0.0-5.0); MEAN CELL VOLUME 93.3 fL CALC (80.0-100.0); MEAN CORPUSCULAR HGB 29.7 pG CALC (26.0-32.0); MEAN CORPUSCULAR HGB CONC 31.9 g/dL CAL (32.0-36.0); NEUT# 9.4 thou/uL (2.00-7.15); RED BLOOD COUNT 4.64 mill/uL (4.20-5.60); RED CELL DISTRI WIDTH 13.9 % (11.5-15.5)
[2020-10-17 19:11] LABS: ALBUMIN 4.4 g/dL (3.2-5.0); ALKALINE PHOSPHATASE 80 u/l (38-126); AMYLASE 103 u/l (30-110); ANION GAP 14 (6-22 (CALC)); BILIRUBIN, TOTAL 0.5 mg/dL (0.0-1.4); CARBON DIOXIDE 32 mmol/l (22-30); CHLORIDE 94 mmol/l (95-108); CREATININE 0.6 mg/dL (0.5-1.0); GFR > 60 ML/MIN (>=60 (CALC)); GFR FOR AFR.AMER. > 60 ML/MIN (>=60 (CALC)); LIPASE 72 u/l (23-300); SGOT/AST 21 u/l (14-36); SODIUM 136 mmol/l (137-146); TOTAL PROTEIN 7.2 g/dL (6.3-8.2)
[2020-10-17 19:12] LABS: BUN 10 mg/dL (7-17); BUN/CREATININE RATIO 17 (12-20 (CALC)); POTASSIUM 3.7 mmol/l (3.5-5.1)
[2020-10-17 19:19] LABS: MYOGLOBIN 21 ng/mL (0 - 62)
[2020-10-17 21:26] LABS: URINE BILIRUBIN - DIPSTICK NEGATIVE (NEGATIVE); URINE BLOOD DIPSTICK NEGATIVE (NEGATIVE); URINE COLOR YELLOW; URINE GLUCOSE - DIPSTICK 500 mg/dL (NEGATIVE); URINE KETONE NEGATIVE (NEGATIVE); URINE LEUK ESTERASE NEGATIVE (NEGATIVE); URINE NITRITE - DIPSTICK NEGATIVE (Negative); URINE PROTEIN - DIPSTICK NEGATIVE (NEG-TRACE); URINE SPECIFIC GRAVITY 1.015; URINE UROBILINOGEN - DIPSTICK 0.2 E.U./dL (0.2)
[2020-10-18 03:35] VITALS: BP 120/69
[2020-10-18 08:00] VITALS: BP 117/61
[2020-10-18 12:00] VITALS: BP 148/84
[2020-10-18 14:00] VITALS: BP 148/84
== END 2020-10-18 14:00 | disposition home or self-care (01) ==
LOC: ED 17:22 → ED-I 21:13 → ED 22:35 → ED-I 22:36
PROVIDERS: Emergency Medicine; ADMIT Internal Medicine; ATTEND Internal Medicine
DX: R53.1 Weakness (principal); R51.9 Headache, unspecified; E87.6 Hypokalemia; F41.1 Generalized anxiety disorder; I10 Essential (primary) hypertension; E11.9 Type 2 diabetes mellitus without complications; F32.9 Major depressive disorder, single episode, unspecified; E78.00 Pure hypercholesterolemia, unspecified; E03.9 Hypothyroidism, unspecified; F17.200 Nicotine dependence, unspecified, uncomplicated; Z88.9 Allergy status to unspecified drugs, medicaments and biological substances; Z88.6 Allergy status to analgesic agent; Z85.42 Personal history of malignant neoplasm of other parts of uterus; Z79.84 Long term (current) use of oral hypoglycemic drugs; Z20.822 Contact with and (suspected) exposure to COVID-19

== ENCOUNTER 2021-02-15 14:13 | Emergency (ER) | payer MEDICARE, MEDICAID ==
[~2021-02-15] VITALS: Ht 165.1 cm; Wt 86.0 kg
[2021-02-15] MEDS ORDERED: CLINDAMYCIN300 M1 PO (14:42)
[2021-02-15] MEDS ORDERED: LORTAB 5/3255 MG PO (14:42)
[2021-02-15 14:50] VITALS: BP 135/69
== END 2021-02-15 14:57 | disposition home or self-care (01) ==
LOC: ED 14:13
DX: K04.7 Periapical abscess without sinus (principal); K05.10 Chronic gingivitis, plaque induced; K02.9 Dental caries, unspecified; F17.210 Nicotine dependence, cigarettes, uncomplicated

== ENCOUNTER 2021-02-20 19:22 | Observation (INO) | payer MEDICARE, MEDICAID ==
[~2021-02-20] VITALS: Ht 165.1 cm; Wt 90.0 kg
[~2021-02-20 19:22] MED LIST changes: +CLINDAMYCIN300 M1 PO
--- NOTE | 2021-02-20 19:40 | NUR ---
PT TO ROOM VIA WHEELCAHIR FOR BEDSIDE TRIAGE, VISITOR WITH PATIENT.
--- NOTE | 2021-02-20 19:41 | NUR ---
PT. WITH C/I FEELING ANXIOUS AND RUNNING OUT OF HER ANTIANXIETY MED AND THEN SHE STATES SHE TOOK 3 25 MG BENADRYL AND 2 TORADOL. AND NOW SHE FEELS ANXIOUS AND STATES SHE IS HAVING AN ANXIETY ATTACK.
--- NOTE | 2021-02-20 19:45 | NUR ---
PT. NOW C/O MIDSTERNAL CP A 4 ON A SCALE OF 1-10. MD AT BEDSIDE.
[2021-02-20 20:44] LABS: HEMATOCRIT 45.2 % (37.0-47.0); HEMOGLOBIN 14.8 g/dl (12.0-16.0); IMMATURE GRANULOCYTES 0.4 % (0.0-5.0); MEAN CELL VOLUME 88.6 fL CALC (80.0-100.0); MEAN CORPUSCULAR HGB CONC 32.7 g/dL CAL (32.0-36.0); NEUT# 8.38 thou/uL (2.00-7.15); RED BLOOD COUNT 5.1 mill/uL (4.20-5.60); RED CELL DISTRI WIDTH 13.6 % (11.5-15.5); URINE BILIRUBIN - DIPSTICK NEGATIVE (NEGATIVE); URINE BLOOD DIPSTICK NEGATIVE (NEGATIVE); URINE COLOR YELLOW; URINE GLUCOSE - DIPSTICK NEGATIVE (NEGATIVE); URINE KETONE NEGATIVE (NEGATIVE); URINE LEUK ESTERASE NEGATIVE (NEGATIVE); URINE NITRITE - DIPSTICK NEGATIVE (Negative); URINE PROTEIN - DIPSTICK NEGATIVE (NEG-TRACE); URINE UROBILINOGEN - DIPSTICK 0.2 E.U./dL (0.2)
--- NOTE | 2021-02-20 20:45 | NUR ---
AMBULATING TO BR GAIT SLOW AND STEADY. NO C/O AT THIS TIME.
[2021-02-20 20:58] LABS: ALBUMIN 4.7 g/dL (3.2-5.0); ALKALINE PHOSPHATASE 101 u/l (38-126); ANION GAP 16 (6-22 (CALC)); BILIRUBIN, TOTAL 0.4 mg/dL (0.0-1.4); BUN 8 mg/dL (7-17); BUN/CREATININE RATIO 12 (12-20 (CALC)); CARBON DIOXIDE 33 mmol/l (22-30); CHLORIDE 86 mmol/l (95-108); CREATININE 0.7 mg/dL (0.5-1.0); ETHYL ALCOHOL 0 mg/dl (0-30); GFR > 60 ML/MIN (>=60 (CALC)); GFR FOR AFR.AMER. > 60 ML/MIN (>=60 (CALC)); POTASSIUM 3.2 mmol/l (3.5-5.1); SGOT/AST 27 u/l (14-36); SODIUM 131 mmol/l (137-146)
[2021-02-20 20:59] LABS: TOTAL PROTEIN 8.8 g/dL (6.3-8.2)
--- NOTE | 2021-02-20 21:43 | NUR ---
PT. STATES SHE FEELS A LITTLE LESS ANXIOUS AT THIS TIME.
--- NOTE | 2021-02-20 22:38 | NUR ---
PT. STATES HER MIDSTERNAL CP IS NOW DECREASE TO A 2 ON A SCALE OF 1-10.
--- NOTE | 2021-02-20 23:12 | NUR ---
PT. MADE AWARE OF ADMISSION, VERBALIZED UNDERSTANDING.
--- NOTE | 2021-02-21 00:09 | NUR ---
Admission Note Report Given to: MELISSA BURNHAM Transported by: Wheelchair X Stretcher Transported with: X Nurse Transporter X Patent IV O2 X Pneumatic Tube Fitter Location: ICU X MS2
--- NOTE | 2021-02-21 00:10 | NUR ---
PT. TAKEN TO IA FLOOR VIA STRETCHER.
[2021-02-21 00:23] VITALS: BP 117/73
--- NOTE | 2021-02-21 02:16 | NUR ---
RECEIVED PATIENT TO ROOM 281 VIA STRETCHER FROM THE ED IN STABLE CONDITION. PATIENT AMBULATED FROM STRETCHER TO BED WITH STANDBY ASSIST. GAIT UNSTEADY. RESPIRATIONS EASY ON ROOM AIR. C/O CHEST PAIN AND TOOTH ABSCESS PAIN 12/05, DR PERRY CALLED FOR ORDERS, NEW ORDERS RECEIVED. MORPHINE 2 MG IV AND ATIVAN 1MG IV GIVEN FOR PAIN AND RESTLESS LESS/ANXIETY WITH POSITIVE EFFECT. IVF INFUSING. RESTING QUIETLY IN BED AT THIS TIME. FALL PRECAUTIONS MAINTAINED. BED IN LOW POSITION. CALL LIGHT WITHIN REACH.
[2021-02-21 04:00] VITALS: BP 112/65
--- NOTE | 2021-02-21 07:37 | NUR ---
LAB AT BEDSIDE OBTAINING VENIPUNCTURE FO ORDERED TEST-
[2021-02-21 08:06] VITALS: BP 101/69
--- NOTE | 2021-02-21 08:06 | NUR ---
PT SITTING IN BED. A&O X4. DROWSY APPEARANCE NOTED. PT C/ OF MASTERS AND THROAT PAIN. PT STATES SHE HAS A TOOTH ABSCESS. D CARTEE NOTIFIED, TYLENOL TO BE GIVEN. CLEAR BREATH SOUNDS HEARD UPON AUSCULTATION. ACTIVE BOWEL SOUNDS X4 QUADRANTS. HEALTHY AND PATENT IV WITH IVF PER EMAR ORDER. MANAGER SKILLED IN PLACE. ASSESSMENT COMPLETED. DISCUSSED POC. CALL LIGHT WITHIN REACH.
[2021-02-21 09:31] LABS: ANION GAP 10 (6-22 (CALC)); BUN 8 mg/dL (7-17); BUN/CREATININE RATIO 13 (12-20 (CALC)); CARBON DIOXIDE 31 mmol/l (22-30); CHLORIDE 90 mmol/l (95-108); CREATININE 0.6 mg/dL (0.5-1.0); GFR > 60 ML/MIN (>=60 (CALC)); GFR FOR AFR.AMER. > 60 ML/MIN (>=60 (CALC)); POTASSIUM 2.9 mmol/l (3.5-5.1); SODIUM 128 mmol/l (137-146)
[2021-02-21] MEDS ORDERED: METFORMIN500 M2 PO (09:39)
[2021-02-21] MEDS ORDERED: HYDROCO/APAP1 TA9 PO (09:41)
[2021-02-21] MEDS ORDERED: CLINDAMYCIN300 M1 PO (09:41)
[2021-02-21] MEDS ORDERED: ALPRAZOLAM0.25 MG PO (09:42)
[2021-02-21] MEDS ORDERED: BUPROPN HCL300 MG PO (09:43)
[2021-02-21] MEDS ORDERED: BUPROPION150 M3 PO (09:44)
[2021-02-21] MEDS ORDERED: FLUOXETINE40 MG PO (09:45)
[2021-02-21] MEDS ORDERED: LASIX 40 MG TAB40 MG PO (09:45)
[2021-02-21] MEDS ORDERED: SYNTHROID175 MCG PO (09:46)
[2021-02-21] MEDS ORDERED: TRAZODONE100 MG PO (09:47)
[2021-02-21] MEDS ORDERED: RISPERDAL1 M1 PO (09:48)
[2021-02-21] MEDS ORDERED: GABAPENTIN600 MG PO (09:48)
[2021-02-21] MEDS ORDERED: MAXZIDE-2537.5 MG/TA PO (09:49)
[2021-02-21] MEDS ORDERED: OMEPRAZOLE DR40 MG PO (09:49)
[2021-02-21] MEDS ORDERED: TRILEPTAL150 M1 PO (09:50)
[2021-02-21] MEDS ORDERED: VENTOLIN HFA IN (09:51)
[2021-02-21] MEDS ORDERED: ATORVASTATIN CA10 MG PO (09:52)
--- NOTE | 2021-02-21 10:59 | NUR ---
DR REEDER AND Zaida ALVARADO APRN AT BEDSIDE DISCUSSING POC
[2021-02-21 12:55] LABS: ANION GAP 9 (6-22 (CALC)); BUN 9 mg/dL (7-17); BUN/CREATININE RATIO 16 (12-20 (CALC)); CARBON DIOXIDE 30 mmol/l (22-30); CHLORIDE 92 mmol/l (95-108); CREATININE 0.6 mg/dL (0.5-1.0); GFR > 60 ML/MIN (>=60 (CALC)); GFR FOR AFR.AMER. > 60 ML/MIN (>=60 (CALC)); POTASSIUM 3.4 mmol/l (3.5-5.1); SODIUM 128 mmol/l (137-146)
--- NOTE | 2021-02-21 13:43 | NUR ---
Zaida ALVARADO APRN NOTIFIED OF SODIUM LEVEL RESULTS. AWAITING PENDING D/C.
--- NOTE | 2021-02-21 16:05 | NUR ---
PT UPDATED ON POC, HOME MEDICATION OXCARBAZEPINE OBTAINED, APPROVAL FOR CONTINUATION OBTAINED BY DR REEDER. PT EXPRESSESS CONCERN FOR NOT AFFORDING HER MEDICATIONS, CASE MANAGEMENT TO BE CONSULTED. NO OTHER NEEDS AT THIS TIME. CALL LIGHT WITHIN REACH.
[2021-02-21 16:41] VITALS: BP 106/69
[2021-02-21 19:34] VITALS: BP 122/78
--- NOTE | 2021-02-21 20:09 | NUR ---
PATIENT SEMI FOWLERS. ALERT AND ORIENTED X3. DENIES PAIN. ASSESSMENT COMPLETE AND CHARTED. NO ACUTE DISTRESS. BED IN LOW POSITION. CALL LIGHT WITHIN REACH. FALL PRECAUTIONS IN PLACE.
[2021-02-22 00:34] VITALS: BP 115/81
--- NOTE | 2021-02-22 00:49 | NUR ---
PATIENT C/O TOOTH PAIN. LORTAB GIVEN WITH POSITIVE EFFECT.
[2021-02-22 04:00] VITALS: BP 127/80
--- NOTE | 2021-02-22 04:01 | NUR ---
RESTING QUIETLY. NO ACUTE DISTRESS. NO PAIN.
--- NOTE | 2021-02-22 04:37 | NUR ---
PATIENT C/O SORE THROAT. POPSICLE OFFERED AND RECEIVED.
[2021-02-22 06:32] LABS: BUN 6 mg/dL (7-17); BUN/CREATININE RATIO 11 (12-20 (CALC)); CARBON DIOXIDE 26 mmol/l (22-30); CREATININE 0.5 mg/dL (0.5-1.0); GFR > 60 ML/MIN (>=60 (CALC)); GFR FOR AFR.AMER. > 60 ML/MIN (>=60 (CALC)); POTASSIUM 3.7 mmol/l (3.5-5.1)
[2021-02-22 06:37] LABS: ANION GAP 10 (6-22 (CALC)); CHLORIDE 104 mmol/l (95-108); SODIUM 136 mmol/l (137-146)
[2021-02-22 07:15] VITALS: BP 132/74
--- NOTE | 2021-02-22 07:15 | NUR ---
PATIENT LAYING IN BED AT THIS TIME ALERT AND ORIENTED X3 WITH SIDERAILS PADDED FOR SEIZURE PERCAUTIONS. NEURO CHECKS DONE AND UNCHANGED AND WITHOUT DEFICITS. SEAM STAY STITCHER DONE AT THIS TIME SEE INTERVENTIONS. LUNG PANTOJA ARE CLEAR. PATINET DENIES ANY PAIN AT THIS TIME. SIDERAILS ARE UP X 2 CALL LIGHT AND PERSONAL ITEMS WIHTIN REACH.
[2021-02-22 07:27] LABS: MEAN CELL VOLUME 93.5 fL CALC (80.0-100.0); MEAN CORPUSCULAR HGB 29.6 pG CALC (26.0-32.0); MEAN CORPUSCULAR HGB CONC 31.7 g/dL CAL (32.0-36.0); RED BLOOD COUNT 3.98 mill/uL (4.20-5.60)
[2021-02-22 07:28] LABS: HEMATOCRIT 37.2 % (37.0-47.0); HEMOGLOBIN 11.8 g/dl (12.0-16.0)
--- NOTE | 2021-02-22 10:45 | NUR ---
O.25MG XANAX GIVEN AT THIS TIME. PATIENT STATES "I FEEL NERVOUS". WHEN WHY PATIENT STATES "I HAVE ANXIETY" PATIENT ALSO EDUCATED ON RELAXATION TECHNIQUES.
--- NOTE | 2021-02-22 11:35 | NUR ---
PATIENT SITTING UP IN CHAIR AT THIS TIME PATIENT HAS BEEN DC'D AND VERBALIZES UNDERSTANDING OF D/C INSTRUCTIONS AT THIS TIME. PATIENTS IV REMOVED AND NO SIGNS OR SYMPTOMS OF IV SITE INFECTIONS AT THIS TIME.
[2021-02-22 12:02] VITALS: BP 132/74
--- NOTE | 2021-02-22 12:16 | NUR ---
Discharge instructions given. Patient verbalizes understanding of same. Discharged in stable condition via Wheelchair to Home with *Other. All belongings sent with pt. PATIENT WAS SENT HOME WITH [facility] TO START ON 02/23/21
== END 2021-02-22 12:30 | disposition home health service (06) ==
LOC: ED 19:22 → ED-I 20:19 → ED 20:19 → ED-I 23:00 → ED 23:38 → MS2 23:39
PROVIDERS: Emergency Medicine; Nurse Practitioner; ADMIT Internal Medicine; ATTEND Internal Medicine
DX: F13.239 Sedative, hypnotic or anxiolytic dependence with withdrawal, unspecified (principal); R07.9 Chest pain, unspecified; E87.6 Hypokalemia; E87.1 Hypo-osmolality and hyponatremia; E11.9 Type 2 diabetes mellitus without complications; I10 Essential (primary) hypertension; I25.2 Old myocardial infarction; I25.10 Atherosclerotic heart disease of native coronary artery without angina pectoris; F41.9 Anxiety disorder, unspecified; F17.200 Nicotine dependence, unspecified, uncomplicated; E03.9 Hypothyroidism, unspecified; E78.00 Pure hypercholesterolemia, unspecified; T42.4X6A Underdosing of benzodiazepines, initial encounter; Z91.120 Patient's intentional underdosing of medication regimen due to financial hardship; F32.9 Major depressive disorder, single episode, unspecified; Z85.42 Personal history of malignant neoplasm of other parts of uterus; Z20.822 Contact with and (suspected) exposure to COVID-19
CPT/HCPCS: G0378; J2060

== ENCOUNTER 2021-04-30 13:28 | Observation (INO) | payer MEDICARE, MEDICAID ==
[~2021-04-30] VITALS: Ht 165.1 cm; Wt 93.0 kg
[~2021-04-30 13:28] MED LIST changes: +BUPROPION150 M3 PO; +FLUOXETINE40 MG PO; +HYDROCO/APAP1 TA9 PO; +TRILEPTAL150 M1 PO
--- NOTE | 2021-04-30 13:34 | NUR ---
DR LOPEZ OUT WITH PATIENT, STROKE ALERT CALLED. PT [facility] ROJAS.
--- NOTE | 2021-04-30 13:50 | NUR ---
DR VELEZ ON TELE CART AT THIS TIME. HE ASSES PATIENT AND REPORTS SHE IS NOT A TPA CANDIDATE AND WILL CALL DR LOPEZ.
[2021-04-30 14:16] LABS: HEMATOCRIT 38.8 % (37.0-47.0); HEMOGLOBIN 12.4 g/dl (12.0-16.0); IMMATURE GRANULOCYTES 0.2 % (0.0-5.0); MEAN CELL VOLUME 92.6 fL CALC (80.0-100.0); MEAN CORPUSCULAR HGB 29.6 pG CALC (26.0-32.0); NEUT# 6.2 thou/uL (2.00-7.15); RED BLOOD COUNT 4.19 mill/uL (4.20-5.60); RED CELL DISTRI WIDTH 12.9 % (11.5-15.5)
--- NOTE | 2021-04-30 14:30 | NUR ---
PATIENT BACK TO ED AND IS AWARE OF WAIT TIME FOR ROOM ASSIGNMENT. PATIENT REMAINS IN VIVAR BED CLOSELY MONITORED. VSS.
[2021-04-30 14:32] LABS: INTERNATIONAL NORMALIZED RATIO 0.8 RATIO (0.7-1.3); PROTHROMBIN TIME 8.8 SECONDS (9.0-12.5)
[2021-04-30 14:37] LABS: ALKALINE PHOSPHATASE 148 u/l (38-126); ANION GAP 13 (6-22 (CALC)); BILIRUBIN, TOTAL 0.3 mg/dL (0.0-1.4); BUN 6 mg/dL (7-17); BUN/CREATININE RATIO 9 (12-20 (CALC)); CARBON DIOXIDE 27 mmol/l (22-30); CHLORIDE 97 mmol/l (95-108); CREATININE 0.6 mg/dL (0.5-1.0); GFR > 60 ML/MIN (>=60 (CALC)); GFR FOR AFR.AMER. > 60 ML/MIN (>=60 (CALC)); LIPASE 73 u/l (23-300); POTASSIUM 3.7 mmol/l (3.5-5.1); SGOT/AST 23 u/l (14-36); SODIUM 134 mmol/l (137-146); TOTAL PROTEIN 7.3 g/dL (6.3-8.2)
--- NOTE | 2021-04-30 15:30 | NUR ---
PATIENT REMAINS IN STRETCHER ON WALL. PATIENT RESTING COMFORTABLY IN STRETCHER IN NAD. VSS.
[2021-04-30 16:16] LABS: URINE BILIRUBIN - DIPSTICK NEGATIVE (NEGATIVE); URINE BLOOD DIPSTICK NEGATIVE (NEGATIVE); URINE COLOR YELLOW; URINE GLUCOSE - DIPSTICK 500 mg/dL (NEGATIVE); URINE KETONE NEGATIVE (NEGATIVE); URINE LEUK ESTERASE NEGATIVE (NEGATIVE); URINE NITRITE - DIPSTICK POSITIVE (Negative); URINE PROTEIN - DIPSTICK NEGATIVE (NEG-TRACE); URINE UROBILINOGEN - DIPSTICK 0.2 E.U./dL (0.2)
[2021-04-30 16:23] LABS: URINE BACTERIA MODERATE hpf; URINE SQUAMOUS EPITHELIAL CELL FEW EPI/hpf (0-FEW)
--- NOTE | 2021-04-30 16:30 | NUR ---
PATIENT RESTING IN STRETCHER IN NAD, SHE REMAINS ALERT TO PERSON AND PLACE. ASSESSMENT REMAINS THE SAME.
--- NOTE | 2021-04-30 17:30 | NUR ---
REPEAT NIH COMPLETED. SHE REMAINS A3 AT THIS TIME FOR SLURRED SPEECH, UNABLE TO IDENTIFY THE MONTH AND SENSATION CHANGES TO THE LEFT SIDE. SPEECH SEEMS TO BE LESS SLURRED THEN UPON ARRIVAL.
--- NOTE | 2021-04-30 18:30 | NUR ---
PATIENT RESTIN GIN STRETCHER AND IS AWARE OF PLAN FOR ADMISSION. SHE IS RESTING IN STRETCHER WITH EYES CLOSED. CALL DE LUNA WITHIN REACH.
--- NOTE | 2021-04-30 19:00 | NUR ---
REPORT TO TEJ TIAN.
--- NOTE | 2021-04-30 21:00 | NUR ---
UP TO BS WITHOUT PROBLEM.
--- NOTE | 2021-05-01 00:57 | NUR ---
SLEEPING NAD APPEARS COMFORTABLE.
[2021-05-01 07:00] VITALS: BP 99/81
--- NOTE | 2021-05-01 08:00 | NUR ---
swallow test completed succesfully and breakfast tray given per ok of physician.
--- NOTE | 2021-05-01 08:00 | NUR ---
recieved for care,resting quietly. call estrada in reach.
--- NOTE | 2021-05-01 08:00 | NUR ---
SPOKE TO PHYSICIAN REGRDING MEAL AND PAIN MED NEEDS. PATIENT PERFORMED SWALLOW TEST SUCCESSFULLY.
--- NOTE | 2021-05-01 10:18 | NUR ---
REPORT TO ONCOMING RN
--- NOTE | 2021-05-01 11:00 | NUR ---
1100 PATIENT WAS TAKING TO DO A MRI 1120 PATIENT CAME BACK FROM MRI
--- NOTE | 2021-05-01 11:35 | NUR ---
Reassessment of patient completed. No distress noted.
--- NOTE | 2021-05-01 11:36 | NUR ---
NEURO CHECK DONE
[2021-05-01] MEDS ORDERED: FLEXERIL5 M1 PO (13:00)
[2021-05-01] MEDS ORDERED: FUROSEMIDE20 MG PO (13:00)
[2021-05-01] MEDS ORDERED: JANUVIA100 MG PO (13:00)
--- NOTE | 2021-05-01 14:15 | NUR ---
Reassessment of patient completed. No distress noted.
--- NOTE | 2021-05-01 15:33 | NUR ---
RN CHECK THE ACCUCHECK AND WAS 122, REQUESTED DINNER
--- NOTE | 2021-05-01 16:38 | NUR ---
Reassessment of patient completed. No distress noted.Pt. rechecked post pain med administration. Pain level (1-10): 0 Pain better/worse: BETTER
--- NOTE | 2021-05-01 16:56 | NUR ---
Spoke with patient's son, Giuseppe, , updated him on mothers condition. Son requeststhat mother be discharged with a glucometer. Will pass on to case management.
--- NOTE | 2021-05-01 18:07 | NUR ---
Reassessment of patient completed. No distress noted.
--- NOTE | 2021-05-01 22:15 | NUR ---
PT SLEEPING. NAD. ASSUMED CARE. SAFE DEPOSIT ATTENDANT CALLED FOR MEDS NOT IN PYXIS. VSS.
--- NOTE | 2021-05-02 01:00 | NUR ---
PT RESTING. SLEEPING. SAT DOWN TO 90. PLACED ON NC AT 2 LPM. SATS INCREASED.
--- NOTE | 2021-05-02 04:00 | NUR ---
PT RESTING. VSS.
[2021-05-02 04:55] LABS: HEMATOCRIT 40.9 % (37.0-47.0); HEMOGLOBIN 12.7 g/dl (12.0-16.0); MEAN CELL VOLUME 94.2 fL CALC (80.0-100.0); MEAN CORPUSCULAR HGB 29.3 pG CALC (26.0-32.0); MEAN CORPUSCULAR HGB CONC 31.1 g/dL CAL (32.0-36.0); RED BLOOD COUNT 4.34 mill/uL (4.20-5.60); RED CELL DISTRI WIDTH 13.2 % (11.5-15.5)
[2021-05-02 05:26] LABS: ANION GAP 11 (6-22 (CALC)); BUN 9 mg/dL (7-17); BUN/CREATININE RATIO 16 (12-20 (CALC)); CALCULATED LDLCHOLESTEROL 109 mg/dL (62-129 (CALC)); CARBON DIOXIDE 29 mmol/l (22-30); CHLORIDE 102 mmol/l (95-108); CHOLESTEROL HDL RATIO 4.3 (<4.4 (CALC)); CREATININE 0.6 mg/dL (0.5-1.0); GFR > 60 ML/MIN (>=60 (CALC)); GFR FOR AFR.AMER. > 60 ML/MIN (>=60 (CALC)); HDL CHOLESTEROL 52 mg/dL (>=40); MAGNESIUM 1.9 mg/dL (1.6-2.3); POTASSIUM 4.2 mmol/l (3.5-5.1); SODIUM 138 mmol/l (137-146); TOTAL TRIGLYCERIDES 326 mg/dl (30-149); VLDL CHOLESTROL 65 mg/dl (2-49 (CALC))
[2021-05-02 05:29] LABS: TOTAL CHOLESTEROL 226 mg/dl (0-199)
--- NOTE | 2021-05-02 05:45 | NUR ---
PT UP TO BSC. VOIDED QS. PT IS A/O NAD. LUX GRASP EQUAL AND STRONG. FACIAL DROP ON LEFT. MOVED TO HOSPITAL BED. VSS. PT GIVEN WATER AND APPLE JUICE.
--- NOTE | 2021-05-02 07:00 | NUR ---
REPORT RECEIVED FROM EDGARD RN. PT ICU HOLD IN ED.
[2021-05-02 08:00] VITALS: BP 151/81
--- NOTE | 2021-05-02 08:00 | NUR ---
PT SITTING UPRIGHT IN BED, BREAKFAST PROVIDED. VITALS TAKEN, STABLE. CALL LIGHT AND PERSONAL ITEMS WITHIN REACH. BED IN LOW POSITION. NO CONCERNS VOICED.
--- NOTE | 2021-05-02 10:15 | NUR ---
ATTENDING PHYSICAIN AT BEDSIDE DISCUSSING PLAN OF CARE. PT REPORTS HEADACHE IMPROVED. PITCHER OF WATER PROVIDED AT PT REQUEST. NO OTHER CONCERNS VOICED.
--- NOTE | 2021-05-02 12:00 | NUR ---
LUNCH PROVIDED TO PT. SITTING UPRIGHT IN BED, EATING INDEPENDENTLY. NO DISTRESS NOTED.
--- NOTE | 2021-05-02 13:20 | NUR ---
PT REQUESTING SOMETHING FOR ANXIETY, MEDICATED WITH PRN ANXIETY MEDS AT THIS TIME. NO OTHER CONCERNS VOICED.
[2021-05-02 15:20] VITALS: BP 112/68
--- NOTE | 2021-05-02 15:30 | NUR ---
RE[facility]
[2021-05-02 15:50] VITALS: BP 116/66
--- NOTE | 2021-05-02 15:50 | NUR ---
PATIENT ARRIVED TO FLOOR FROM ER HOLDING. PATIENT STATES MD TOLD HER SHE HAS "SOMETHING WRONG WITH HER BRAIN" MRI OF BRAIN WAS NEGATIVE FOR ANT DEPICITS.
[2021-05-02 19:00] VITALS: BP 118/73
--- NOTE | 2021-05-02 20:00 | NUR ---
PHYSICAL ASSESMENT COMPLETE. PT CURRENTLY DENIES PAIN OR DISCOMFORT. SCHEDULED MEDICATIONS AND PRN MEDICATION ADMINISTERED, SEE E-MAR. PT DENIES ANY NEEDS AT THIS TIME. PLAN OF CARE REVIEWED, PT DENIES QUESTIONS, VERBALIZES UNDERSTANDING. ITEMS WITHIN REACH, BED LOCKED IN LOW POSITION W/ BEDRAILS UP X2. CALL DE LUNA WITHIN REACH, AGREES TO CALL PRN.
[2021-05-03] VITALS: BP 111/68
--- NOTE | 2021-05-03 | NUR ---
PT LAYING IN BED WITH EYES CLOSED, APPEARS TO BE SLEEPING, APPEARS COMFORTABLE AND IN NO DISTRESS. RESPIRATIONS REGULAR AND UNLABORED. ITEMS REMAIN WITHIN REACH, CALL DE LUNA REMAINS WITHIN REACH. BED REMAINS LOCKED AND IN LOW POSITION WITH BEDRAILS UP X2. WILL CONTINUE TO MONITOR.
[2021-05-03 04:00] VITALS: BP 137/83
[2021-05-03 05:26] LABS: HEMATOCRIT 38.3 % (37.0-47.0); HEMOGLOBIN 12.2 g/dl (12.0-16.0); MEAN CELL VOLUME 92.7 fL CALC (80.0-100.0); MEAN CORPUSCULAR HGB 29.5 pG CALC (26.0-32.0); MEAN CORPUSCULAR HGB CONC 31.9 g/dL CAL (32.0-36.0); RED BLOOD COUNT 4.13 mill/uL (4.20-5.60); RED CELL DISTRI WIDTH 13.2 % (11.5-15.5)
[2021-05-03 05:46] LABS: ANION GAP 11 (6-22 (CALC)); BUN 12 mg/dL (7-17); BUN/CREATININE RATIO 18 (12-20 (CALC)); CARBON DIOXIDE 30 mmol/l (22-30); CHLORIDE 98 mmol/l (95-108); CREATININE 0.7 mg/dL (0.5-1.0); GFR > 60 ML/MIN (>=60 (CALC)); GFR FOR AFR.AMER. > 60 ML/MIN (>=60 (CALC)); POTASSIUM 3.9 mmol/l (3.5-5.1); SODIUM 136 mmol/l (137-146)
--- NOTE | 2021-05-03 06:59 | NUR ---
REPORT REC FROM Christina DANIEL RN
[2021-05-03 07:48] VITALS: BP 137/72
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
--- NOTE | 2021-05-03 11:17 | NUR ---
DR LEE AND Zaida ALVARADO APRN AT BEDSIDE DISCUSSING POC
[2021-05-03 11:54] VITALS: BP 110/65
[2021-05-03] MEDS ORDERED: NITROFURANTN100 MG PO (12:29)
--- NOTE | 2021-05-03 13:00 | NUR ---
D/C INSTRUCTIONS GIVEN TO PT, IV INTACT UPON REMOVAL.
--- NOTE | 2021-05-03 13:15 | NUR ---
Discharge instructions given. Patient verbalizes understanding of same. Discharged in stable condition via Wheelchair to home with [facility] health accompanied staff. All belongings sent with pt.
== END 2021-05-03 13:15 | disposition home health service (06) ==
LOC: ED 13:28 → ED-I 17:06 → ED 17:06 → ED-I 17:53 → ED 18:12 → ED-I 18:13 → MS2 05-02 14:41
PROVIDERS: Family Medicine; ADMIT Hospitalist; ATTEND Hospitalist
DX: G45.9 Transient cerebral ischemic attack, unspecified (principal); E87.2 Acidosis; N39.0 Urinary tract infection, site not specified; S00.93XA Contusion of unspecified part of head, initial encounter; S70.12XA Contusion of left thigh, initial encounter; I10 Essential (primary) hypertension; E11.9 Type 2 diabetes mellitus without complications; J44.9 Chronic obstructive pulmonary disease, unspecified; E78.5 Hyperlipidemia, unspecified; E03.9 Hypothyroidism, unspecified; F41.9 Anxiety disorder, unspecified; F32.9 Major depressive disorder, single episode, unspecified; F17.200 Nicotine dependence, unspecified, uncomplicated; W19.XXXA Unspecified fall, initial encounter; Z79.84 Long term (current) use of oral hypoglycemic drugs; Z85.42 Personal history of malignant neoplasm of other parts of uterus; Z88.0 Allergy status to penicillin; Z88.6 Allergy status to analgesic agent; Z20.822 Contact with and (suspected) exposure to COVID-19
CPT/HCPCS: J1650; Q9967

== ENCOUNTER 2021-07-23 17:21 | Emergency (ER) | payer MEDICARE ==
[~2021-07-23] VITALS: Ht 165.1 cm; Wt 82.7 kg
[~2021-07-23 17:21] MED LIST changes: +FLEXERIL5 M1 PO; +FUROSEMIDE20 MG PO; +JANUVIA100 MG PO; +NITROFURANTN100 MG PO
[2021-07-23] MEDS ORDERED: BACTRIM DS1 TAB PO ×2 (19:10→19:26)
[2021-07-23 19:23] VITALS: BP 138/84
== END 2021-07-23 19:23 | disposition home or self-care (01) ==
LOC: ED 17:21
DX: N61.0 Mastitis without abscess (principal); I10 Essential (primary) hypertension; E11.9 Type 2 diabetes mellitus without complications; J44.9 Chronic obstructive pulmonary disease, unspecified; E78.5 Hyperlipidemia, unspecified; F41.9 Anxiety disorder, unspecified; F17.210 Nicotine dependence, cigarettes, uncomplicated; Z86.73 Personal history of transient ischemic attack (TIA), and cerebral infarction without residual deficits

== ENCOUNTER 2021-08-30 11:02 | Inpatient (IN) | payer MEDICARE, OTHER ==
[~2021-08-30] VITALS: Ht 167.6 cm; Wt 100.0 kg
--- NOTE | 2021-08-30 11:20 | NUR ---
PT ESCORTED TO ROOM 15 VIA WHEELCHAIR FOR ABD PAIN/VOMITING EVAL
--- NOTE | 2021-08-30 12:20 | NUR ---
PT RESTING QUIETLY ON STRETCHER. RESP E/U. NO DISTRESS NOTED.
[2021-08-30 12:47] LABS: ALBUMIN 4.3 g/dL (3.2-5.0); ALKALINE PHOSPHATASE 119 u/l (38-126); AMYLASE 92 u/l (30-110); BUN 7 mg/dL (7-17); BUN/CREATININE RATIO 12 (12-20 (CALC)); CARBON DIOXIDE 31 mmol/l (22-30); CHLORIDE 92 mmol/l (95-108); CREATININE 0.6 mg/dL (0.5-1.0); GFR > 60 ML/MIN (>=60 (CALC)); GFR FOR AFR.AMER. > 60 ML/MIN (>=60 (CALC)); LIPASE 24 u/l (23-300); POTASSIUM 3.8 mmol/l (3.5-5.1); SGOT/AST 18 u/l (14-36); TOTAL PROTEIN 8.5 g/dL (6.3-8.2)
[2021-08-30 12:53] LABS: ANION GAP 10 (6-22 (CALC)); BILIRUBIN, TOTAL 0.7 mg/dL (0.0-1.4); SODIUM 129 mmol/l (137-146)
[2021-08-30 12:58] LABS: MYOGLOBIN 16 ng/mL (0 - 62)
--- NOTE | 2021-08-30 13:07 | NUR ---
PATIENT UNABLE TO PROVIDE URINE SPECIMEN AT THIS TIME. PATIENT REPORTS SOME PAIN RELIEF BUT IS STILL NAUSEATED. MD NOTIFIED.
[2021-08-30 13:26] LABS: HEMATOCRIT 42.5 % (37.0-47.0); HEMOGLOBIN 13.6 g/dl (12.0-16.0); IMMATURE GRANULOCYTES 0.3 % (0.0-5.0); MEAN CORPUSCULAR HGB 29.4 pG CALC (26.0-32.0); NEUT# 8.55 thou/uL (2.00-7.15); RED BLOOD COUNT 4.62 mill/uL (4.20-5.60); RED CELL DISTRI WIDTH 12.9 % (11.5-15.5)
--- NOTE | 2021-08-30 14:03 | NUR ---
PT RETURNED FROM CT SCAN. RESTING QUIETLY. RESP E/U. NO DISTRESS NOTED.
--- NOTE | 2021-08-30 14:17 | NUR ---
PT AMBULATED TO BATHROOM WITH STEADY GAIT. TOLERATED ACTIVITY WITHOUT C/O.
[2021-08-30 14:26] LABS: URINE BILIRUBIN - DIPSTICK NEGATIVE (NEGATIVE); URINE BLOOD DIPSTICK NEGATIVE (NEGATIVE); URINE COLOR YELLOW; URINE GLUCOSE - DIPSTICK NEGATIVE (NEGATIVE); URINE KETONE NEGATIVE (NEGATIVE); URINE LEUK ESTERASE NEGATIVE (NEGATIVE); URINE PH 6.5 (4.5-8.0); URINE PROTEIN - DIPSTICK NEGATIVE (NEG-TRACE); URINE UROBILINOGEN - DIPSTICK 0.2 E.U./dL (0.2)
[2021-08-30 14:48] LABS: URINE NITRITE - DIPSTICK POSITIVE (Negative); URINE RBC 0-2 RBC/hpf (0-5)
[2021-08-30 14:49] LABS: URINE BACTERIA MANY hpf; URINE SQUAMOUS EPITHELIAL CELL FEW EPI/hpf (0-FEW)
--- NOTE | 2021-08-30 15:20 | NUR ---
PATIENT RESTING QUIETLY ON STRETCHER. RESP E/U. NO DISTRESS NOTED.
--- NOTE | 2021-08-30 16:20 | NUR ---
PT RESTING ON STRETCHER. RESP E/U. NO DISTRESS NOTED.
--- NOTE | 2021-08-30 17:20 | NUR ---
PT RESTING ON STRETCHER WITH NO DISTRESS NOTED. RESP E/U.
--- NOTE | 2021-08-30 18:20 | NUR ---
PT RESTING QUIETLY. NO DISTRESS NOTED
--- NOTE | 2021-08-30 19:18 | NUR ---
REPORT GIVEN TO TEJ REEVES
[2021-08-30 19:45] VITALS: BP 151/91
--- NOTE | 2021-08-30 19:51 | NUR ---
PT TRANSPORTED TO [place] VIA WC IN SRTABLECONDITION
--- NOTE | 2021-08-30 21:00 | NUR ---
PATIENT ADMITTED FROM ER VIA WHEELCHAIR WITH ER STAFF IN ATTENDANCE. PATIENT ABLE TO TRANSFER INTO THE BED. AWAKE ALERT AND ORIENTEDX3 C/O SEVERE KAYLEY PAIN. NGT TO RIGHT NARE IN PLACE AND CONNECTED TO LIWS-DRAINING BROWNISH ORANGE FLUID. ABD IS DISTENED BUT SOFT WITH HYPOACTIVE BS. LAST BM WAS 08/27 PER PATIENT. NPO AT THIS TIME. STATES THAT SHE DOES WEAR A BREIF FOR STRESS INCONT. NO PERIPHERAL EDEMA, PULSES ARE PALPABLE. MEDICATED PATIENT WITH MORPHINE 2MG IVP FOR PAIN AND WITH ZOFRAN 4MG IVP FOR NAUSEA. ORIENTED PATIENT TO ROOM AND SURROUNDINGS. INSTRUCTED ON USE OF NURSE CALL LIGHT SYSTEM AND TV REMOTE. SAFETY PRECAUTIONS REINFORCED. CALL LIGHT IN REACH. WILL CONT TO MONITOR.
[2021-08-31] VITALS (10 sets, daily range): BP systolic 125–164; BP diastolic 68–87
--- NOTE | 2021-08-31 00:10 | NUR ---
PATIENT RESTING IN BED-NGT DRAINING MODERATE AMT OF BROWNISH ORANGE FLUID. IVF NS PATENT AND INFUSING VIA RIGHT FOREARM SITE ORDERED AST 125CC/HR. SITE REMAINS HEALTHY. MERRUM HUNG ORDERED. REMAINS NPO AT THIS TIME. CALL LIGHT IN REACH. WILL CONT TO MONITOR,
--- NOTE | 2021-08-31 02:01 | NUR ---
PATIENT ASSISTED OOB TO THE BSC TO VOID LARGE AMT OF YELLOW URINE. ASSISTED BACK INTO BED. NGT DRAINING BROWN FLUID. IVF PATENT AND INFUSING VIA RIGHT FOREARM SITE AT 125CC/HR, REMAINS NPO AT THIS TIME. MEDICATED FOR ABD PAIN-9/10 ON PAIN SCALE WITH MORPHINE 2MG IVP. CALL LIGHT IN REACH. WILL CONT TO MONITOR.
--- NOTE | 2021-08-31 06:15 | NUR ---
PATIENT RESTING IN BED-NGT OUTPUT FOR THIS SHIFT IS 350CC OF BROWN FLUID. ABD IS DISTENDED WITH HYPOACTIVE BS. UP TO THE BSC TO VOID. IVF NS PATENT AND INFUSING VIA RIGHT FOREARM SITE AT 125CC/HR. MERRUM INFUSED ORDERED. C/O ABD PAIN AND MEDICATED WITH MORPHINE 2MG IVP ORDERED FOR 9/10 ON PAIN SCALE. HAD ZOFRAN FOR NAUSEA AROUND 0500. SAFETY PRECAUTIONS REINFORCED. CALL LIGHT IN REACH. WILL CONT TO MONITOR.
--- NOTE | 2021-08-31 10:00 | NUR ---
INFORMED CONSENT OBTAINED FOR SURGICAL PROCEDURE
[2021-08-31] MEDS ORDERED: METFORMIN500 M2 PO (10:02)
[2021-08-31] MEDS ORDERED: ACETAMIN500 M2 PO (10:17)
--- NOTE | 2021-08-31 10:22 | NUR ---
DR LEE AND Zaida ALVARADO APRN AT BEDSIDE DISCUSSING POC; PT MEDICATED WITH SCHEDULED PROTONIX IV; ZOFRAN IV; AND DILAUDID PER EMAR FOR PAIN; PER Lianne BISWAS RN AFTER SPEAKING WITH ANESTHESIA OKAY TO GIVE PT DILAUDID FOR PAIN. PT RATED PAIN 10/10. PT HAD SIGNED CONSENT PRIOR TO THE ADMINISTRATION OF DILAUDID. JEWELRY REMOVED AND PLACED IN DENTURE CUP. IV REMAINS HEALTHY AND PATENT WITH IVF INFUSING PER MAR ORDER. CALL LIGHT WITHIN REACH.
--- NOTE | 2021-08-31 11:14 | NUR ---
PT TAKEN VIA BED TO OR FOR SCHEDULED PROCEDURE IN STABLE CONDITION ACCOMPANIED BY Lianne BISWAS & MARIELLA BURNHAM.
--- NOTE | 2021-08-31 13:57 | NUR ---
PT REMAINS IN THE OR
--- NOTE | 2021-08-31 14:22 | NUR ---
PT note: Patient is screened for PT intervention and no needs are identfied at this time
--- NOTE | 2021-08-31 15:37 | NUR ---
PT ARRIVED VIA BED ACCOMPANIED BY ROLADN BURNHAM. PT DROWSY. NGT TO RT NARE REMAINS IN PLACE; POST OP ORDERS OBTAINED TO CONTINUE NGT TO LCS. X3 SMALL LAPAROSCOPIC INCISIONS WITH MIDLINE INCISION; ALL CLOSED WITH DERMABOND. IV REMAINS HEALTHY AND PATENT WITH IVF INFUSING PER MAR ORDER. BROWER CATHETER IN PLACE. CALL LIGHT WITHIN REACH. BED ALARM IN PLACE FOR SAFETY.
--- NOTE | 2021-08-31 16:10 | NUR ---
PT SLEEPING IN BED. NO DISTRESS NOTED. CALL LIGHT WITHIN REACH.
--- NOTE | 2021-08-31 20:04 | NUR ---
PATIENT RESTING IN BED AT THIS TIME WITH HOB ELEVATED. NGT IN PLACE TO LCWS DRAINING GREENISH BROWN FLUID. O2 VIA NASAL CANNULA IN PLACE AT 2LPM. PATIENT IS NPO AT THIS TIME. IVF NS PATENT AND INFUSING VIA RIGHT FOREARM SITE AT 125CC/HR. BROWER CATH PATENT AND DRAINING YELLOW URINE. ABD INCISIONS AND SMALL INCISION INTACT WITH DERMABOND-ABD IS SOFT. SCD'S IN PLACE. MEDICATED WITH DILAUDID 1MG IVP FOR 10/10 POST-OP PAIN. SAFETY PRECAUTIONS REINFORCED. CALL LIGHT IN REACH. WILL CONT TO MONITOR.
--- NOTE | 2021-08-31 21:00 | NUR ---
PATIENT STATES SOME RELIEF FROM DILAUDID GIVEN EALIER-02/04 AT THIS TIME. REMAINS NPO AT THIS TIME. ORAL MEDS WERE HELD. ACCU-CHECK WAS 119-NO COVERAGE REQUIRED. IVF PATENT AND INFUSING VIA RIGHT FOREARM SITE AT 125CC/HR. BROWER PATENT AND DRAINING YELLOW URINE. NGT CONT TO DRAIN GREEN FLUID. SAFETY PRECAUTIONS REINFORCED. CALL LIGHT IN REACH. WILL CONT TO MONITOR.
--- NOTE | 2021-08-31 23:15 | NUR ---
PATIENT RESTING IN BED-C/O POST-OP PAIN AND NAUSEA. MEDICATED WITH ZOFRAN 4MG IVP AND WITH DILAUDID 1MG IVP FOR PAIN 10/10 ON PAIN SCALE. NGT CONT TO DRAIN GREEN FLUID. BROWER PATENT AND DRAINING YELLOW URINE. O2 VIA NASAL CANNULA AT 2LPM. IVF NS PATENT AND INFUSING VIA RIGHT FOREARM SITE AT 125CC/HR. SITE REMAINS HEALTHY WITH GOOD BLOOD RETURN. INSTRUCTED ON USE OF IS USE-WILL NEED REINFORCEMENT. SCD'S IN PLACE. SAFETY PRECAUTIONS REINFORCED. CALL LIGHT IN REACH.WILL CONT TO MONITOR.
[2021-09-01] VITALS: BP 132/76
--- NOTE | 2021-09-01 00:53 | NUR ---
PATIENT MAX ASSIST OOB TO THE RECLINER-TOLERATED WELL. TAKING SMALL AMTS OF ICE CHIPS. NGT REMAINS IN PLACE AND DRAINING GREEN FLUID, BROWER INTACT DRAINING YELLOW URINE. IVF NS PATENT AND INFUSING VIA RIGHT FOREARM SITE AT 125CC/HR. CALL LIGHT IN REACH. WILL CONT TO MONITOR.
--- NOTE | 2021-09-01 02:39 | NUR ---
PATIENT ASSISTED BACK TO THE BED-MAX ASSIST. WAS ABLE TO TOLERATED APPROX 1 HOUR UP IN THE CHAIR-TAKING ICE CHIPS AND TOLERATING WELL. IVF PATENT AND INFUSING VIA RIGHT FOREARM SITE AT 125CC/HR. SITE REMAINS HEALTHY WITH GOOD BLOOD RETURN. MEDICATED FOR POST-OP PAIN WITH DILAUDID 1MG IVP FOR 8/10 PAIN SCALE. NGT DRAINING GFREEN FLUID. BROWER PATENT AND DRAINING YELLOW URINE. ENCOURAGED USE OF IS-PATIENT STATES THAT SHE CAN'T RIGHT NOW. SCD'S IN PLACE. O2 VIA NASAL CANNULA IN PLACE AT 2LPM. SAFETY PRECAUTIONS REINFORCED. CALL LIGHT IN REACH. WILL CONT TO MONITOR.
[2021-09-01 04:00] VITALS: BP 145/70
[2021-09-01 05:08] LABS: MEAN CELL VOLUME 96.4 fL CALC (80.0-100.0); MEAN CORPUSCULAR HGB 29.4 pG CALC (26.0-32.0); MEAN CORPUSCULAR HGB CONC 30.5 g/dL CAL (32.0-36.0); RED BLOOD COUNT 3.94 mill/uL (4.20-5.60)
[2021-09-01 05:10] LABS: HEMOGLOBIN 11.6 g/dl (12.0-16.0)
[2021-09-01 05:26] LABS: BUN 3 mg/dL (7-17); BUN/CREATININE RATIO 6 (12-20 (CALC)); CARBON DIOXIDE 28 mmol/l (22-30); CREATININE 0.5 mg/dL (0.5-1.0); GFR > 60 ML/MIN (>=60 (CALC)); GFR FOR AFR.AMER. > 60 ML/MIN (>=60 (CALC)); MAGNESIUM 1.8 mg/dL (1.6-2.3); POTASSIUM 3.7 mmol/l (3.5-5.1)
[2021-09-01 05:37] LABS: ANION GAP 7 (6-22 (CALC)); CHLORIDE 108 mmol/l (95-108); SODIUM 139 mmol/l (137-146)
--- NOTE | 2021-09-01 06:14 | NUR ---
PATIENT RESTING IN BED AT THIS TIME WITH O2 VIA NASAL CANNULA IN PLACE. NGT IN PLACE WITH TOTAL NGT OUTPUT 220CC OF GREEN FLUID. BROWER CATH PATENT AND DRAINING YELLOW URINE. IVF PATENT AND INFUSING VIA RIGHT FOREARM SITE AT 125CC/HR. MERRUM INFUSING ORDERED. CALL LIGHT IN REACH. WILL CONT TO MONITOR.
[2021-09-01 07:24] VITALS: BP 137/73
--- NOTE | 2021-09-01 07:40 | NUR ---
DR HUA AT BEDSIDE DISCUSSING POC
--- NOTE | 2021-09-01 08:34 | NUR ---
BROWER CATHETER REMOVED PER MD ORDERS. PT TOLERATED WELL. CATHETER INTACT UPON REMOVAL.
--- NOTE | 2021-09-01 08:34 | NUR ---
PT LAYING IN BED. A&O X3. NO DISTRESS NOTED. PT REPORTS IMPROVEMENT IN PAIN; CURRENTLY 5/10. CLEAR BREATH SOUNDS UPON AUSCULTATION. HYPOACTIVE BOWEL SOUNDS X4 QUADRANTS. POD #1. NGT TO LCS PER MD ORDERS TO RT NARE; GREEN COLORED OUTPUT NOTED IN COLLECTION CANISTER. X4 INCISIONS 3 LAPAROSCOPIC AND ONE MIDLINE ALL WITH DERMABOND. BROWER CATHTER REMOVED THIS AM. PT UPDATED ON POC AND PLAN TO GET OOB INTO THE CHAIR, PT AGREEABLE. BILATERAL SCDS IN PLACE. WEAK PEDAL PULSES. ASSESSMENT COMPLETED. DISCUSSED POC. CALL LIGHT WITHIN REACH.
[2021-09-01 10:28] VITALS: BP 130/71
--- NOTE | 2021-09-01 11:28 | NUR ---
NG TUBE TO RIGTH NARE REMOVED PER MD ORDERS. PT TOLERATED WELL. NGT INTACT UPON REMOVAL. 400 CC OF GREEN VIAL OF THE COLLECTION CANISTER.
--- NOTE | 2021-09-01 11:28 | NUR ---
DR LEE AND Zaida ALVARADO AT BEDSIDE DISCUSSING POC
--- NOTE | 2021-09-01 13:55 | NUR ---
PT HAD EPISODE OF STRESS INCONTINENCE; UNABLE TO REACH BSC. OCTAVIO CARE GIVEN. PT ASSISTED INTO CHAIR WITH ASSISTANCE OF Gigi CRABTREE LPN. CALL LIGHT WITHIN REACH.
[2021-09-01 16:14] VITALS: BP 118/74
--- NOTE | 2021-09-01 17:36 | NUR ---
PT REMAINS SITTING IN THE CHAIR. NO DISTRESS NOTED. PT DENIES ANY NEEDS AT THIS TIME. CALL LIGHT WITHIN REACH.
[2021-09-01 19:00] VITALS: BP 113/70
--- NOTE | 2021-09-01 19:30 | NUR ---
PATIENT ALERT AND ORIENTED. OBSERVED SITTING IN ROOM IN RECLINER WATCHING TV. HELPED PATIENT AMBULATE TO HER BED WITH SUPERVISION. ASSESSMENT COMPLETE. INCISIONS X4 REMAIN CDI WITH DERMABOND. IV FLUIDS CONTINUE TO RUN PER ORDERS. CALL LIGHT AND BELONGINGS REMAIN IN REACH.
--- NOTE | 2021-09-01 23:50 | NUR ---
PATIENT RESTING IN BED. NO SIGNS OF DISTRESS NOTED. NO COMPLAINTS OF PAIN VOICED. IVF REMAIN INFUSING AT 800/HR. CALL LIGHT AND BELONGINGS REMAIN IN REACH.
[2021-09-02] VITALS: BP 110/66
[2021-09-02 04:00] VITALS: BP 99/63
--- NOTE | 2021-09-02 04:00 | NUR ---
PATIENT RESTING IN BED QUIETLY. DENIES PAIN AT THIS TIME. NO SIGNS OF DISTRESS. ABLE TO MAKE NEEDS KNOWN. CALL LIGHT AND BELONGINGS REMAIN IN REACH.
--- NOTE | 2021-09-02 04:23 | NUR ---
AMBULATED PATIENT TOO AND FROM BEDSIDE COMMODE. NEEDS SUPERVISION WHEN TRANSFERRING.
[2021-09-02 05:46] LABS: HEMATOCRIT 36.2 % (37.0-47.0); HEMOGLOBIN 11.1 g/dl (12.0-16.0); IMMATURE GRANULOCYTES 0.2 % (0.0-5.0); MEAN CELL VOLUME 96.8 fL CALC (80.0-100.0); MEAN CORPUSCULAR HGB 29.7 pG CALC (26.0-32.0); MEAN CORPUSCULAR HGB CONC 30.7 g/dL CAL (32.0-36.0); NEUT# 6.55 thou/uL (2.00-7.15); RED BLOOD COUNT 3.74 mill/uL (4.20-5.60); RED CELL DISTRI WIDTH 12.9 % (11.5-15.5)
[2021-09-02 06:07] LABS: ALKALINE PHOSPHATASE 83 u/l (38-126); ANION GAP 8 (6-22 (CALC)); BILIRUBIN, TOTAL 0.6 mg/dL (0.0-1.4); BUN 4 mg/dL (7-17); BUN/CREATININE RATIO 8 (12-20 (CALC)); CARBON DIOXIDE 30 mmol/l (22-30); CHLORIDE 102 mmol/l (95-108); CREATININE 0.5 mg/dL (0.5-1.0); GFR > 60 ML/MIN (>=60 (CALC)); GFR FOR AFR.AMER. > 60 ML/MIN (>=60 (CALC)); POTASSIUM 3.4 mmol/l (3.5-5.1); SGOT/AST 14 u/l (14-36); SODIUM 137 mmol/l (137-146)
[2021-09-02 06:14] LABS: ALBUMIN 2.9 g/dL (3.2-5.0); TOTAL PROTEIN 5.8 g/dL (6.3-8.2)
--- NOTE | 2021-09-02 07:30 | NUR ---
RECIEVED REPORT FROM TEJ SCALES
[2021-09-02 09:00] VITALS: BP 116/72
--- NOTE | 2021-09-02 09:00 | NUR ---
PT RESTING IN SEMI FOWLERS POSITION. PT IS A/O X3. ASSESSMENT AND VITALS COMPLETED. BP 116/72,HR 76,O2 97% ON 2L NC. RESPIRATIONS ARE EVEN AND UNLABORED WITH NO DISTRESS NOTED. LUNG SOUNDS DIMINISHED. BOWEL SOUNDS ARE HYPOACTIVE, LAST REPORTED BM 08/27/21.PT REPORTS PASSSING GAS YESTERDAY BUT NONE TODAY. PULSES STRONG. #20G RFA INFUSING WITH IVF PER ORDER, SITE REMAINS HEALTHY AND PATENT. SURGICAL SITE TO ABD REMAINS CDI WITH DERMABOND IN PLACE. SCDS IN PLACE. I.S AT BESIDE. PT COMPLAINS OF 4/10 ABD PAIN. PT TO BE MEDICATED LATER PER EMAR. PT DENIES OF ANY ADDITIONAL NEEDS AT THIS TIME. PT REMAINS NPO WITH ICE CHIPS AND SMALL SIPS OF WATER. ALL SAFETY PRECAUTIONS ARE IN PLACE WITH CALL LIGHT IN REACH. WILL CONTINUE TO MONITOR.
--- NOTE | 2021-09-02 09:15 | NUR ---
O2 REMOVED, O2 REMAINS 92%. RESPIRATIONS ARE EVEN AND UNLABORED. PT INSTRUCTED TO REAPPLY O2 IF NEEDED. PT VERBALIZED UNDERSTANDING.
--- NOTE | 2021-09-02 11:17 | NUR ---
GLUCOSE RESULTING IN 79. JUICE PROVIDED. CLEAR LIQUID TRAY ORDERED FOR LUNCH. PT REMAINS RESTING IN BED, ASYMPTOMATIC. WILL CONTINUE TO MONITOR
[2021-09-02 11:58] VITALS: BP 116/69
--- NOTE | 2021-09-02 12:02 | NUR ---
PT RESTING IN SEMI FOWLERS POSITION. RESPIRATIONS REMAINS EVEN AND UNLABORED ON ROOM AIR, 93%. #20G RFA INFUSING WITH IVF PER ORDER, SITE REMAINS PATENT. PT COMPLAINS OF 9/10 PAIN IN ABD. VITALS REASSEDED. PT MEDICATED WITH OXYCODONE PER EMAR.NO LUNCH TRAY RECIEVED, DIETARY INFORMED. ALL SAFETY PRECAUTIONS ARE IN PLACE WITH CALL LIGHT IN REACH.WILL CONTINUE TO MONITOR
--- NOTE | 2021-09-02 13:48 | NUR ---
REASSESSMENT OF GLUCOSE RESULTING IN 107
--- NOTE | 2021-09-02 15:28 | NUR ---
PT RESTING IN SEMI FOWLERS POSITION. RESPIRATIONS ARE EVEN AND UNLABORED ON ROOM AIR. #20G RFA REMAINS INFUSING WITH IVF PER ORDER, SITE PATENT. SURGICAL SITE TO ABD REMAINS CDI WITH DERMABOND. SCHEDULED XANAX ADMINISTERED. PT DENIES OF ANY ADDITIONAL NEEDS. ALL SAFETY PRECAUTIONS ARE IN PLACE WITH CALL LIGHT IN REACH. WILL CONTINUE TO MONITOR
[2021-09-02 16:39] VITALS: BP 118/74
[2021-09-02 19:30] VITALS: BP 138/69
--- NOTE | 2021-09-02 19:33 | NUR ---
PT SITTING IN RECLINER AT BEDSIDE, NO SIGNS OF DISTRESS NOTED, RESP EVEN AND UNLABORED. PT ALERT AND ORIENTED X3, NO EDEMA. DISCUSSED POC, DRESSINGS TO ABD CDI, PT MEDICATED FOR PAIN, IS AT BEDSIDE, PT DEMONSTRATED ITS USE AND PT REACHED UP TO 500ML, ASSESSMENT COMPLETED, CALL LIGHT IN REACH,CONTINUE TO MONITOR.
--- NOTE | 2021-09-02 21:00 | NUR ---
PT RESTING IN BED WATCHING TV, NO SIGNS OF DISTRESS NOTED, RESP EVEN AND UNLABORED. PT MEDICATED PER MAR, VOICES NO NEEDS OR COMPLAINTS AT THIS TIME, CALL LIGHT IN REACH,CONTINUE TO MONITOR.
--- NOTE | 2021-09-03 01:10 | NUR ---
PT RESTING IN BED WITH EYES CLOSED, NO SIGNS OF DISTRESS NOTED, RESP EVEN AND UNLABORED. CALL LIGHT IN REACH,CONTINUE TO MONITOR.
[2021-09-03 04:41] VITALS: BP 129/65
--- NOTE | 2021-09-03 05:40 | NUR ---
PT RESTING IN BED WATCHING TV, NO SIGNS OF DISTRESS NOTED, RESP EVEN AND UNLABORED. PT MEDICATED PER MAR, VOICES NO NEEDS OR COMPLAINTS AT THIS TIME. CALL LIGHT IN REACH,CONTINUE TO MONITOR.
[2021-09-03 07:24] VITALS: BP 134/71
--- NOTE | 2021-09-03 08:40 | NUR ---
PT SEEN AWAKE, ALERT, ORIENTED X 3. LUNGS CLEAR, RA. ABDOMEN WITH EVIDENCE OF RECENT SURGERY, INCISIONS ALL WNL. PT WITHOUT BM SEVERAL DAYS, HYPOACTIVE BOWEL SOUNDS.
[2021-09-03 11:44] VITALS: BP 129/80
--- NOTE | 2021-09-03 12:12 | NUR ---
PT TAKEN TO XRAY FOR KUB JUST NOW. SHE WAS HAVING PAIN WITH FULL LIQUID DIET, SO IT WAS BACKED DOWN TO CLEARS AGAIN.
[2021-09-03 14:39] LABS: HEMATOCRIT 36.4 % (37.0-47.0); HEMOGLOBIN 11.4 g/dl (12.0-16.0); MEAN CELL VOLUME 94.5 fL CALC (80.0-100.0); MEAN CORPUSCULAR HGB 29.6 pG CALC (26.0-32.0); MEAN CORPUSCULAR HGB CONC 31.3 g/dL CAL (32.0-36.0); RED BLOOD COUNT 3.85 mill/uL (4.20-5.60); RED CELL DISTRI WIDTH 12.8 % (11.5-15.5)
[2021-09-03 15:02] LABS: ALBUMIN 3.2 g/dL (3.2-5.0); ALKALINE PHOSPHATASE 96 u/l (38-126); ANION GAP 9 (6-22 (CALC)); BILIRUBIN, TOTAL 0.5 mg/dL (0.0-1.4); BUN < 2 mg/dL (7-17); CARBON DIOXIDE 31 mmol/l (22-30); CHLORIDE 100 mmol/l (95-108); CREATININE 0.5 mg/dL (0.5-1.0); GFR > 60 ML/MIN (>=60 (CALC)); GFR FOR AFR.AMER. > 60 ML/MIN (>=60 (CALC)); POTASSIUM 3.2 mmol/l (3.5-5.1); SGOT/AST 17 u/l (14-36); SODIUM 137 mmol/l (137-146); TOTAL PROTEIN 6.5 g/dL (6.3-8.2)
--- NOTE | 2021-09-03 16:32 | NUR ---
PT RECEIVED TORADOL FOR PAIN RELIEF. PT ENCOURAGED TO AMBULATE IN ROOM, WILL RECEIVE MILK OF MAGNESIA TONIGHT FOR BOWELS TO MOVE.
[2021-09-03 16:41] VITALS: BP 127/82
[2021-09-03 19:06] VITALS: BP 119/83
--- NOTE | 2021-09-03 19:20 | NUR ---
PT AMBULATING HALLWAY WITH DE ICER FINISHER, PT TOLERATING WELL. NO SIGNS OF DISTRESS NOTED, CONTINUE TO MONITOR.
--- NOTE | 2021-09-03 20:45 | NUR ---
PT RESTING IN BED, NO SIGNS OF DISTRESS NOTED, RESP EVEN AND UNLABORED. PT ALERT AND ORIENTED X4, DISCUSSED POC, PT DENIES ANY PAIN AT THIS TIME. SURGICAL INCISIONS TO ABD CDI, MICHEL WITH DERMABOND. ENCOURAGED IS, IV SL SO PT MAY GET WASHED UP. ASSESSMENT COMPLETED, CALL LIGHT IN REACH,CONTINUE TO MONITOR.
--- NOTE | 2021-09-03 21:30 | NUR ---
PT RETURNED TO BED, MEDICATED PER OCT, CALL LIGHT IN REACH,CONTINUE TO MONITOR.
--- NOTE | 2021-09-04 | NUR ---
PT RESTING IN BED WITH EYES CLOSED, NO SIGNS OF DISTRESS NOTED, RESP EVEN AND UNLABORED. CALL LIGHT IN REACH,CONTINUE TO MONITOR.
[2021-09-04 04:00] VITALS: BP 114/77
--- NOTE | 2021-09-04 04:00 | NUR ---
PT RESTING IN BED, NO SIGNS OF DISTRESS NOTED, RESP EVEN AND UNLABORED. VOICES NO NEEDS OR COMPLAINTS AT THIS TIME, CALL LIGHT IN REACH,CONTINUE TO MONITOR.
[2021-09-04 05:28] LABS: HEMATOCRIT 33.7 % (37.0-47.0); HEMOGLOBIN 10.5 g/dl (12.0-16.0); MEAN CELL VOLUME 94.4 fL CALC (80.0-100.0); MEAN CORPUSCULAR HGB 29.4 pG CALC (26.0-32.0); MEAN CORPUSCULAR HGB CONC 31.2 g/dL CAL (32.0-36.0); RED BLOOD COUNT 3.57 mill/uL (4.20-5.60)
[2021-09-04 05:57] LABS: ANION GAP 12 (6-22 (CALC)); BUN 3 mg/dL (7-17); BUN/CREATININE RATIO 5 (12-20 (CALC)); CARBON DIOXIDE 33 mmol/l (22-30); CHLORIDE 97 mmol/l (95-108); CREATININE 0.5 mg/dL (0.5-1.0); GFR > 60 ML/MIN (>=60 (CALC)); GFR FOR AFR.AMER. > 60 ML/MIN (>=60 (CALC)); MAGNESIUM 1.5 mg/dL (1.6-2.3); POTASSIUM 2.9 mmol/l (3.5-5.1); SODIUM 139 mmol/l (137-146)
--- NOTE | 2021-09-04 07:00 | NUR ---
RECIEVDED REPORT FROM GINA GARCIA
[2021-09-04 07:29] VITALS: BP 126/72
--- NOTE | 2021-09-04 07:29 | NUR ---
PT RESTING IN SEMI FOWLERS POSITION. PT IS A/OX3 BUT VERY DROWSY. ASSESSMENT AND VITALS COMPLETED. BP 126/72,HR 65,O2 95% ON 2L NC. RESPIRATIONS ARE EVEN AND UNLABORED. LUNG SOUNDS ARE DIMINISHED. BOWEL SOUNDS HYPOACTIVE. HEART RHYTHM NORMAL. #20G RFA INFUSING WITH IVF PER ORDER, SITE REMAINS HEALTHY AND PATENT. SURGICAL SITE TO ABD REMAINS CDI WITH DERMABOND. NO S/S OF INFECTION. 1+ EDEMA NOTED TO BLE. SCDS IN PLACE. I.S AT BEDSIDE, PT RE-EDUCATED ON USE. PT DENIES OF ANY PAINS OR DISCOMFORTS AT THIS TIME.CONTACT PRECAUTIONS REMOVED DUE TO MRSA SWAB BEING NEGATIVE. STANDARD PRECAUTIONS IN PLACE. ALL SAFTEY PRECAUTIONS ARE IN PLACE WITH CALL LIGHT IN REACH. WILL CONTINUE TO MONITOR.
--- NOTE | 2021-09-04 09:00 | NUR ---
MORNING DOSE OF XANAX HELD DUE TO PT BEING VERY DROWSY.
--- NOTE | 2021-09-04 10:20 | NUR ---
DR LEE AND LUCIANO KAPOOR AT BEDSIDE
--- NOTE | 2021-09-04 11:59 | NUR ---
PT SLEEPING IN RECYLINER. RESPIRATIONS ARE EVEN AND UNLABORED ON 2L NC. #20G RFA REMAINS INFUSING WITH IVF PER ORDER, SITE REMAINS PATENT. NO SIGNS OF ANY PAINS OR DISCOMFORTS. ALL SAFETY PRECAUTIONS AR EIN PLACE. WILL CONTINUE TO MONITOR
--- NOTE | 2021-09-04 13:39 | NUR ---
PT AMBULATING HALLS WITH MAIL DISTRIBUTION CLERK. STEADY GAIT USING WALKER. PT DONE WELL. PT REPOSITIONED IN RECYLINER. RESPIRATIONS REMAINS EVEN AND UNLABORED ON 2L NC. PT DENIES OF ANY ADDITIONAL NEEDS. ALL SAFTEY PRECAUTIONS ARE IN PLACE WITH CALL LIGHT IN REACH. WILL CONTINUE TO MONITOR
[2021-09-04 14:43] VITALS: BP 167/87
--- NOTE | 2021-09-04 15:29 | NUR ---
PHENERGAN ADMINISTERED FOR NAUSEA.
--- NOTE | 2021-09-04 15:41 | NUR ---
PT ASSITED BACK INTO BED. RESPIRATIONS ARE EVEN AND UNLABORED ON 2L NC. REASSESSMENT OF BP REUSLTING IN 154/71, HR 71. #20G RFA TO BE CHANGED, REMAINS INFUSING WITH IVF PER ORDER, SITE REMAINS PATENT. SURGICAL SITE TO ABD REMAINS CDI WITH DERMABOND NOTED. PT STATES PHENERGAN HAS HELPED NAUSEA. EMISES BAG PROVIDED. PT DENIES OF ANY ADDITIONAL NEEDS. ALL SAFTEY PRECAUTIONS ARE IN PLACE WITH CALL LIGHT IN REACH. WILL CONTINUE TO MONITOR
[2021-09-04 15:55] VITALS: BP 154/77
--- NOTE | 2021-09-04 17:45 | NUR ---
SCANT BM NOTED. PT STATES ITS HARD. MIRLAX ADMINISTERED AT THIS TIME. PT ASSISTED BACK INTO BED. RESPIRTIONS EVEN AND UNLABORED ON ROOM AIR. #20G RFA INFUSING WITH IVF PER ORDER, SITE APPEARS HEALTHY AND PATENT.
[2021-09-04 18:41] VITALS: BP 173/84
--- NOTE | 2021-09-04 19:00 | NUR ---
REPORT RECEIVED FROM DAYSHIFT NURSE VIA SBAR FORMAT, PATIENT IS C/O N/V. WILL MEDICATE PER MD ORDERS. EMESIS BAG AT BEDSIDE. CALL DE LUNA AT REACH.
--- NOTE | 2021-09-04 22:11 | NUR ---
MEDICATED PATIENT LATE BECAUSE C/O NAUSEA AND VOMITING, MEDICATED WITH PHENERGAN AND WAITING TO MEDICATE WITH PO MEDICATIONS.
--- NOTE | 2021-09-04 23:00 | NUR ---
PATENT C/O N/V AND GASTRIC REFLUX/INDIGESTION. PREVIOUSLY MEDICATED WITH PROTONIX AND PHENERGAN IV. EMESIS BAG AT BEDSIDE, WILL NOTIFY
--- NOTE | 2021-09-04 23:23 | NUR ---
MEDICATED WITH ZOFRAN IV C/O N/V, WILL FOLLOW UP WITH REASSESSMENT. PREVIOUSLY MEDICATED WITH PHENERGAN IV.
[2021-09-05] VITALS (8 sets, daily range): BP systolic 158–181; BP diastolic 75–99
--- NOTE | 2021-09-05 04:32 | NUR ---
MEDICATED PATIENT WITH HYDRALAZINE FOR HTN, WILL RECHECK BP IN 30MINS. MEDICATED WITH PHENERGAN IV PER MD ORDERS FOR N/V. PATIENT IS C/O OF HEART BURN/INDEGESTION, IS REQUESTING PEPTO BISMOL, STATES THAT PROTONIX DIDN'T HELP HER INDIGESTION. PATIENT C/O FEELING VERY WEAK, REINFORCED SAFETY MEASURES AND ENCOURAGED TO CALL FOR ASSISTANCE, VOICES UNDERSTANDING. PATIENT IS SITTING UP IN BED WITH AN EMESIS BAG VOMITING. YARN TEXTURING MACHINE OPERATOR COMING IN TO PT ROOM TO DRAW LABS.
--- NOTE | 2021-09-05 04:43 | NUR ---
HAS BEEN NOTIFIED OF PATIENT COMPLAINTS AND REQUEST. NO NEW ORDERS RECEIVED.
[2021-09-05 05:47] LABS: HEMATOCRIT 38.1 % (37.0-47.0); HEMOGLOBIN 12.1 g/dl (12.0-16.0); MEAN CELL VOLUME 93.2 fL CALC (80.0-100.0); MEAN CORPUSCULAR HGB 29.6 pG CALC (26.0-32.0); MEAN CORPUSCULAR HGB CONC 31.8 g/dL CAL (32.0-36.0); RED BLOOD COUNT 4.09 mill/uL (4.20-5.60); RED CELL DISTRI WIDTH 12.8 % (11.5-15.5)
[2021-09-05 05:53] LABS: BUN 4 mg/dL (7-17); BUN/CREATININE RATIO 10 (12-20 (CALC)); CARBON DIOXIDE 33 mmol/l (22-30); CHLORIDE 96 mmol/l (95-108); CREATININE 0.4 mg/dL (0.5-1.0); GFR > 60 ML/MIN (>=60 (CALC)); GFR FOR AFR.AMER. > 60 ML/MIN (>=60 (CALC)); SODIUM 139 mmol/l (137-146)
[2021-09-05 05:54] LABS: ANION GAP 14 (6-22 (CALC)); POTASSIUM 3.5 mmol/l (3.5-5.1)
--- NOTE | 2021-09-05 05:54 | NUR ---
MEDICATED WITH SYNTHROID PO, PATIENT C/O HEART BURN AND INDIGESTION, MD AWARE. EMESIS BAG AT BEDSIDE. UNABLE TO GET SOME REST/SLEEP, STATES "I FEEL VERY TIRED AND WEAK.
--- NOTE | 2021-09-05 07:00 | NUR ---
RECIEVED REPORT FROM KEVINRN
--- NOTE | 2021-09-05 07:44 | NUR ---
PT RESTING IN SEMI FOWLERS POSITION. PT IS A/OX3. ASSESSMENT AND VITALS COMPLETED. BP 159/85, HR 78, O2 95% ON ROOM AIR. REPSIRATIONS ARE EVEN AND UNLABORED. LUNG SOUNDS CLEAR BUT DIMINISHED. HEART RHYTHM NORMAL. BOWEL SOUNDS ARE HYPOACTIVE. LBM 09/04/21. PULSE STRONG. #20G RFA INFUSING WITH IVF PER ORDER, SITE PATENT. PT INFORMED OF NEED IV SITE CHANGE TODAY. PT VERBALIZED UNDERSTANDING. PT C/O OF NAUSEA/INDIGESTION. 300ML OF BROWN EMISIS NOTED. PHENERGAN AND ZOFRAN NOT AVAIABLE. INFORMED FOR NEW ORDERS. PT DENIES OF ANY ADDITIONAL NEEDS AT THIS TIME. ALL SAFTEY PRECAUTIONS ARE IN PLACE WITH CALL LIGHT IN REACH. WILL CONTINUE TO MONITOR.
--- NOTE | 2021-09-05 09:45 | NUR ---
DR LEE AND ANTWON WOLF AT BEDSIDE
--- NOTE | 2021-09-05 10:02 | NUR ---
COMPAZINE ADMINISTERED FOR NAUSEA.
--- NOTE | 2021-09-05 10:38 | NUR ---
CALLED RADIOLODY OF PATIENT NEW ORDER OF CT ABDOMEN, AND STATED WILL THEY WILL CALL BACK ONCE HEB FINISED WITH OTHER ED PATIENT.
--- NOTE | 2021-09-05 12:08 | NUR ---
PT RESTING IN SEMI FOWLERS POSITION. PT STATES COMPAZINE HAS HELPED. ATTEMPTED TO ADMINISTERED MORNING MEDICATIONS. PT UNABLE TO TAKE ALL MEDICATIONS. PHENERGAN ADMINISTERED TO ASSIST WITH NAUSEA. RESPIRATIONS REMAINS EVEN AND UNLABORED ON ROOM AIR.ATTEMPTED TO START NEW IV. UNSUCCESSFUL X2. ADDITIONAL NURSE TO ATTEMPT. PT REFUSED STATING SHE WOULD KEEP CURRENT. PT EDUCATED ON IV BEING ACESSES 08/30/21 AND NEEDED CHANGED. PT REFUSED. #20G RFA REMAINS INFUSING WITH IVF PER ORDER, SITE PATENT. ACCUCHECK RESULTING IN 99. PT REFUSES LUNCH TRAY. TRANSDERMAL PATCH ADMINISTERED AT THIS TIME. PT DENIES OF ANY ADDITIONAL NEEDS. ALL SAFTEY PRECAUTIONS ARE IN PLACE WITH CALL LIGHT IN REACH. WILL CONTINUE TO MONITOR.
--- NOTE | 2021-09-05 14:18 | NUR ---
ZOFRAN AND MYLANTA ADMINISTERED AT THIS TIME PER REQUEST. PT TOLERATED WELL.
--- NOTE | 2021-09-05 16:03 | NUR ---
PT SLEEPING IN SEMI FOWLERS POSITION. RESPIRATIONS ARE EVEN AND UNLABORED WITH NO DISTRESS NOTED. #20G RFA REMAINS IN PLACE. NO SIGNS OF ANY PAINS OR DISCOMFORTS. ALL SAFTEY PRECAUTIONS ARE IN PLACE WITH CALL LIGHT IN REACH. WILL CONTINUE TO MONITOR.
--- NOTE | 2021-09-05 17:26 | NUR ---
NEW #22G RH STARTED BY TEJ CLARK, SITE PATENT. #20G RFA LEAKING, REMOVED WITH CATH STILL INTACT.
--- NOTE | 2021-09-05 17:30 | NUR ---
PT MEDICATED WITH PHENERGAN AT THIS TIME. PT CONTINUES TO COMPAIN OF INDIGESTION THAT CAUSES HER TO VOMIT. ALREADY AWARE .
--- NOTE | 2021-09-05 18:57 | NUR ---
RT AT BEDSIDE FOR NEB TREATMENT
--- NOTE | 2021-09-05 19:00 | NUR ---
RECEIVED REPORT FROM NURSE ARELLANO THAT PATIENT STILL HAVING N/V AND WAS C/O INDIGESTION.
--- NOTE | 2021-09-05 20:30 | NUR ---
PATIENT SITTING IN BED NOTED TO HAVE NAUSEA ANMD VOMITTING PRN ZOFRAN GIVEN WILL REEVALUATE, PATIENT ALERT ORIENTED WITH IV ON RT HAND G 22 WITH NORMAL SALINE INFUSING @ 80CC/HR, BOWEL SOUNDS HYPOACTIVE, LBM 1, ON CLEAR LIQUID DIET, PATIENT HAS MIDLINE INCISION, AND 3 INCISION COVERED WITH DERMABOND, SCOPOLAMINE NOTED ON THE BACK OF LEFT EAR, CALL LIGHT AT REACH.
--- NOTE | 2021-09-05 21:00 | NUR ---
CHILI PEPPER GRINDER MD NOTIFIED OF PATIENT STILL VOMITING AND EMESIS 4OOCC YELLOW COLORED FLUID, MD ORDERED NPO AND A CT OF THE ABDOMEN.
--- NOTE | 2021-09-06 00:50 | NUR ---
NO VOMITTING AT THIS TIME BUT STILL HAVING NAUSEA.
[2021-09-06 04:00] VITALS: BP 159/100
--- NOTE | 2021-09-06 04:45 | NUR ---
PATIENT WAS DRY HEAVING STATED NAUSEATED NOTHING COMING OUT, PRN PHENERGAN GIVEN.
--- NOTE | 2021-09-06 05:15 | NUR ---
PATIENT C/O SOB, SPO2 ON ROOM AIR 97%, PLACED ON O2 @ 2LPM FOR COMFORT, PATIENT REASSURED THAT SHE IS GETTING ENOUGH AIR.
[2021-09-06 05:37] LABS: HEMATOCRIT 37.9 % (37.0-47.0); MEAN CORPUSCULAR HGB 29.1 pG CALC (26.0-32.0); MEAN CORPUSCULAR HGB CONC 31.7 g/dL CAL (32.0-36.0); RED BLOOD COUNT 4.12 mill/uL (4.20-5.60); RED CELL DISTRI WIDTH 12.9 % (11.5-15.5)
[2021-09-06 05:56] LABS: ANION GAP 14 (6-22 (CALC)); BUN 12 mg/dL (7-17); BUN/CREATININE RATIO 25 (12-20 (CALC)); CARBON DIOXIDE 33 mmol/l (22-30); CHLORIDE 94 mmol/l (95-108); CREATININE 0.5 mg/dL (0.5-1.0); GFR > 60 ML/MIN (>=60 (CALC)); GFR FOR AFR.AMER. > 60 ML/MIN (>=60 (CALC)); POTASSIUM 3.3 mmol/l (3.5-5.1); SODIUM 137 mmol/l (137-146)
[2021-09-06 05:58] LABS: MAGNESIUM 2.6 mg/dL (1.6-2.3)
[2021-09-06 08:09] VITALS: BP 167/96
--- NOTE | 2021-09-06 08:09 | NUR ---
PT SITTING ON THE SIDE OF THE BED. A&O X3. EMESIS NOTED IN EMESIS COLLECTION BAG; 200 CC OF YELLOW/GREEN OUTPUT NOTED. PT REPORTS ONGOING NAUSEA AND VOMITING SINCE LAST NIGHT. CURRENTLY NPO DUE TO MD ORDERS. CLEAR BREATH SOUNDS UPON AUSCULTATION. HYPOACTIVE BOWEL SOUNDS X4 QUADRANTS. ABD FIRM AND DISTENDED. REPORTS NOT PASSSING FLATUS SINCE YESTERDAY; LBM 09/04. +1 EDEMA NOTED TO BLE. CURRENTLY POD #6; X4 INCISIONS NOTED TO ABD; 3 LAPAROSCOPIC AND ONE MIDLINE ALL WITH DERMABOND. IV HEALTHY AND PATENT WITH IVF INFUSING PER MAR ORDERS. PT TO BE MEDICATED WITH ANTIEMETIC MEDICATIONS. ASSESSMENT COMPLETED. DISCUSSED POC. CALL LIGHT MOIZ KC.
--- NOTE | 2021-09-06 09:55 | NUR ---
DR FAJARDO AND Zaida ALVARADO APRN AT BEDSIDE DISCUSSING POC
--- NOTE | 2021-09-06 10:00 | NUR ---
DR HUA NOTIFIED OF PTS N&V WHICH HAS NOT GOTTEN BETTER AFTER PATIENT ALTERNATING BETWEEN ANTIEMETIC MEDICATIONS. ORDER OBTAINED TO INSERT NGT. NARES CHECKED PRIOR TO INSERTION. NGT PLACED TO RT NARE. 500 CC OF OUTPUT NOTED AFTER INSERTION; YELLOW IN COLOR. PT TOLERATED WELL. PLACEMENT CHECKED. CALL LIGHT WITHIN REACH.
--- NOTE | 2021-09-06 11:11 | NUR ---
DR HUA AT BEDSIDE DISCUSSING POC
--- NOTE | 2021-09-06 12:23 | NUR ---
PER EDUARDO IN PHARMACY MACRODANTIN CAP OKAY TO BE OPENED AND GIVEN VIA TUBE ALONG WITH XANAX.
--- NOTE | 2021-09-06 12:30 | NUR ---
TOTAL NG CONTENTS 900 CC. NGT CONTINUES TO BE IN PLACE. ABD LESS FIRM AND DISTENDED. PT REPORTING RELIEF OF SYMPTOMS. CALL LIGHT WITHIN REACH.
--- NOTE | 2021-09-06 14:17 | NUR ---
IV CONTRAST COMPLETED AT THIS TIME. RADIOLOGY NOTIFIED.
--- NOTE | 2021-09-06 14:17 | NUR ---
oral contrast completed at this time. radiology notified
[2021-09-06 15:07] VITALS: BP 168/89
--- NOTE | 2021-09-06 17:12 | NUR ---
PT SITTING IN RECLINER. REPORTS IMPROVEMENT OF SYMPTOMS; ABD LESS DISTENDED AND FIRM. C/O OF SLIGHT NAUSEA. MEDICATED WITH ZOFRAN. XANAX GIVEN VIA TUBE AFTER CONSULTING PHARMACY. CALL LIGHT WITHIN REACH.
--- NOTE | 2021-09-06 18:41 | NUR ---
NGT RECONNECTED BACK TO LIS. 900 CC OF YELLOW COLORED OUTPUT NOTED. CALL LIGHT WITHIN REACH.
--- NOTE | 2021-09-06 19:35 | NUR ---
REPORT FROM EVLIE BURNHAM. ASSUMED PT CARE.
[2021-09-06 21:01] VITALS: BP 144/83
[2021-09-06 21:10] VITALS: BP 174/92
--- NOTE | 2021-09-06 21:11 | NUR ---
DISCUSSED LARGE AMOUNTS OF LIGHT BROWN COLORED OUTPUT FROM NG TUBE. 1000ML IN ONE HOUR AND EDEMA NOTED TO BLE WITH COMPUTER AIDED DRAFTER SANG HERNANDEZ. NO NEW ORDERS ARE THIS TIME. NO APPARENT DISTRESS NOTED. VSS. WILL CONTINUE TO MONITOR.
--- NOTE | 2021-09-06 22:30 | NUR ---
LARGE AMOUNTS OF NG TUBE OUTPUT HAS SUBSIDED. PT MEDICATED VIA NG TUBE AT THIS TIME AND CLOSED FOR THE TIME BEING. PT STATES SHE FEELS THE NEED TO HAVE A BM, ASSISTED PT TO BSC. CALL LIGHT WITHIN REACH AND INSTRUCTED PT TO CALL FOR ASSISTANCE WHEN FINISHED. PT VERBALIZED UNDERSTANDING. WILL CONTINUE TO MONITOR.
--- NOTE | 2021-09-06 22:55 | NUR ---
SECURITIES CLERK ASSISTED PT OFF COMMODE AND BACK INTO BED. PT HAD TWO LARGE BMS AND VOIDED WITHOUT DIFFICULTY. PT STATES SHE FEELS MUCH BETTER AT THIS TIME. IVF INFUSING WITHOUT DIFFICULTY. CALL LIGHT WITHIN REACH. WILL CONTINUE TO MONITOR.
--- NOTE | 2021-09-07 00:01 | NUR ---
PT RECONNECTED TO WALL SUCTION TO LIS. PT DENIES ANY PAIN OR DISCOMFORT. NO APPARENT DISTRESS NOTED. CALL LIGHT WITHIN REACH. WILL CONTINUE TO MONITOR.
[2021-09-07 00:21] VITALS: BP 119/83
[2021-09-07 04:00] VITALS: BP 128/65
--- NOTE | 2021-09-07 04:03 | NUR ---
PT RESTING IN BED WITH EYES CLOSED. PT WAKES EASILY. NO APPARENT DISTRESS NOTED. RESPIRATIONS EVEN AND UNLABORED. O2 @ 2L/M VIA NC. PT DENIES ANY PAIN OR DISCOMFORT. NG TUBE TO LIS, LIGHT BROWN OUTPUT NOTED. BOWEL SOUNDS NOTED IN ALL 4 QUADRANTS. PT HAD X2 BM THROUGHOUT NIGHT. PT DENIES ANY CURRENT WANTS OR NEEDS. CALL LIGHT WITHIN REACH. WILL CONTINUE TO MONITOR.
[2021-09-07 07:29] VITALS: BP 131/72
--- NOTE | 2021-09-07 09:30 | NUR ---
PT RESTING IN BED. NO DISTRESS NOTED. LUNGS CLEAR, BREATHS NORMAL AND UNLABORED. HYPOACTIVE BOWEL SOUNDS X4 QUADRANT. ABDOMEN DISTENDED AND SOFT, PT DENIES ANY PAIN AT THIS TIME.
[2021-09-07 11:00] VITALS: BP 129/70
--- NOTE | 2021-09-07 13:45 | NUR ---
PTHELPED TO BED SIDE COMMODE, SECOND BM OF THE DAY. BM LOOSE AND BROWN IN COLOR. PT PUT BACK IN CHAIR AND REQUESTED ICE CHIPS.
[2021-09-07 15:00] VITALS: BP 124/63
--- NOTE | 2021-09-07 18:30 | NUR ---
PT RESTING IN BED. NEW IV IN PLACE DONE BY ROMULO BURNHAM ON POSTERIOR RIGHT ARM #20G. IV HEALTHY AND PATENT. PATIENT HELPED TO RECLINER. NO DISTRESS NOTED AT THIS TIME.
[2021-09-07 19:30] VITALS: BP 125/74
--- NOTE | 2021-09-07 23:00 | NUR ---
PATIENT SITTING UP IN THE RECLINER AT THIS TIME. AWAKE ALERT AND ORIENTEDX3. PATIENT WITH NGT INTACT TO LIWS DRAINING BROWN FLUID. ABD IS DISTENDED WITH HYPOACTIVE BS AT THIS TIME. PATIENT STATES THAT SHE DID HAVE BM'S TODAY-NO FLATUS PER PATIENT. VOIDING WITHOUT ANY DIFFICULTY. DERMABOND TO POST-OP SITES IS INTACT AND HEALING WELL. IV SITE TO RIGHT FOREARM INTACT WITH IVF D5NS PATENT AND INFUSING AT 75CC/HR. SITE REMAINS HEALTHY AT THIS TIME. HS MEDS WERE GIVEN VIA NG TUBE AND TUBE HAS BEEN CLAMPED. ENCOURAGED PATIENT TO AMBULATE AND USE IS INSTRUCTED. CALL LIGHT IN REACH. WILL CONT TO MONITOR.
[2021-09-08 03:56] VITALS: BP 112/64
--- NOTE | 2021-09-08 06:22 | NUR ---
PATIENT RESTING IN BED AT THIS TIME WITH HOB ELEVATED. NGT INTACT AND CONT TO DRAIN BROWN FLUID-TOTAL OUTPUT THIS SHIFT WAS 950CC OF BROWN FLUID. IVF PATENT AND INFUSING VIA RIGHT FOREARM SITE. SITE REMAINS HEALTHY AT THIS TIME. SYNTHROID WAS GIVEN VIA NGT AND TUBE IS NOW CLAMPED. ENCOURAGED U SE OF IS AND ALSO AMBULATION. CALL LIGHT IN REACH. WILL CONT TO MONITOR,
[2021-09-08 06:48] LABS: HEMATOCRIT 35.8 % (37.0-47.0); HEMOGLOBIN 11.2 g/dl (12.0-16.0); MEAN CELL VOLUME 95.5 fL CALC (80.0-100.0); MEAN CORPUSCULAR HGB 29.9 pG CALC (26.0-32.0); MEAN CORPUSCULAR HGB CONC 31.3 g/dL CAL (32.0-36.0); RED BLOOD COUNT 3.75 mill/uL (4.20-5.60); RED CELL DISTRI WIDTH 13.1 % (11.5-15.5)
[2021-09-08 07:02] LABS: ANION GAP 9 (6-22 (CALC)); BUN 14 mg/dL (7-17); BUN/CREATININE RATIO 21 (12-20 (CALC)); CARBON DIOXIDE 33 mmol/l (22-30); CHLORIDE 100 mmol/l (95-108); CREATININE 0.7 mg/dL (0.5-1.0); GFR > 60 ML/MIN (>=60 (CALC)); GFR FOR AFR.AMER. > 60 ML/MIN (>=60 (CALC)); MAGNESIUM 2.2 mg/dL (1.6-2.3); POTASSIUM 2.8 mmol/l (3.5-5.1); SODIUM 140 mmol/l (137-146)
[2021-09-08 07:57] VITALS: BP 115/67
--- NOTE | 2021-09-08 08:45 | NUR ---
PT SITTING IN BED. PT A&O X4. CLEAR LUNG SOUNDS UPON AUSCULTATION, UNLABORED RESPIRATIONS. NORMAL HEART SOUNDS. HYPOACTIVE BOWEL SOUNDS X4 QUADRANTS. MIDLINE SURGICAL INCISION CLEAN, DRY, AND INTACT. NGT CLAMPED AND IN PLACE. PATIENT DENIES PAIN AT THIS TIME. NO DISTRESS NOTED. CALL LIGHT WITHIN REACH.
--- NOTE | 2021-09-08 09:50 | NUR ---
DR FAJARDO AND Zaida ALVARADO APRN AT BEDSIDE DISCUSSING POC
--- NOTE | 2021-09-08 13:34 | NUR ---
DR HUA AT BEDSIDE DISCUSSING POC
--- NOTE | 2021-09-08 13:55 | NUR ---
PT HELPED TO BED SIDE COMMODE. PT REQUESTED TO SIT ON RECLINER AND HAVE A WALK LATER ON. CALL LIGHT WITHIN REACH.
--- NOTE | 2021-09-08 15:00 | NUR ---
PHYSICAL THERAPY AT BEDSIDE FOR CONSULT
[2021-09-08 15:51] VITALS: BP 160/70
--- NOTE | 2021-09-08 18:16 | NUR ---
PT UP AND OOB AMBULATING HALLWAY WITH Gigi CRABTREE LPN.
[2021-09-08 19:00] VITALS: BP 108/77
--- NOTE | 2021-09-08 19:13 | NUR ---
PT IN RECLINER. PT DENIES ANY PAIN AT THE MOMENT. PT REQUESTED TO GO FOR A WALK, NO DISTRESS NOTED AFTER THE WALK. PT HELPED TO THE RECLINER AND ASKED FOR ICE CHIPS. CALL LIGHT WITHIN REACH.
--- NOTE | 2021-09-08 21:00 | NUR ---
PATIENT SITTING UP IN THE RECLINER AT THIS TIME-AWAKE ALERT AND ORIENTEDX3. NGT IS CURRENTLY CLAMPED. PATIENT STATES THAT SHE HAS HAD SEVERAL LOOSE BM'S TODAY. PASSING FLATUS. UP AND AMBULATING IN THE VIVAR-STEADY ON HER FEET. ENCOURAGED USE OF IS Q1H WHILE AWAKE. ABD IS SOFTER TONIGHT WITH ACTIVE BS. INCISIONS HEALING WELL-DERMABOND IN PLACE. IVF D5NS PATENT AND INFUSING VIA RIGHT FOREARM SITE. SAFETY PRECAUTIONS REINFORCED. CALL LIGHT IN REACH. WILL CONT TO MONITOR.
[2021-09-09] VITALS: BP 145/82
--- NOTE | 2021-09-09 00:18 | NUR ---
RESTING IN BED AT THIS TIME WITH HOB ELEVATED-EYES ARE CLOSED. RESPS ARE EVEN AND UNLABORED. NGT REMAINS CLAMPED. IVF D5NS PATENT AND INFUSING VIA RIGHT FOREARM SITE AT 75CC/HR. CALL LIGHT IN REACH. WILL CONT TO MONITOR,
[2021-09-09 04:00] VITALS: BP 129/78
--- NOTE | 2021-09-09 04:00 | NUR ---
PATIENT RESTING IN BED AT THIS TIME WITH EYES CLOSED-RESPS ARE EVEN AND UNLABORED. NGT REMAINS CLAMPED AT TH IS TIME. IVF PATENT AND INFUSING VIA RIGHT FOREARM SITE AT 75CC/HR. CALL LIGHT IN REACH. WILL CONT TO MONITOR.
[2021-09-09 06:34] LABS: ANION GAP 11 (6-22 (CALC)); BUN 12 mg/dL (7-17); BUN/CREATININE RATIO 18 (12-20 (CALC)); CARBON DIOXIDE 30 mmol/l (22-30); CHLORIDE 103 mmol/l (95-108); CREATININE 0.7 mg/dL (0.5-1.0); GFR > 60 ML/MIN (>=60 (CALC)); GFR FOR AFR.AMER. > 60 ML/MIN (>=60 (CALC)); MAGNESIUM 2.2 mg/dL (1.6-2.3); SODIUM 141 mmol/l (137-146)
[2021-09-09 06:35] LABS: POTASSIUM 3.4 mmol/l (3.5-5.1)
[2021-09-09 06:38] LABS: HEMATOCRIT 37.1 % (37.0-47.0); HEMOGLOBIN 11.4 g/dl (12.0-16.0); MEAN CELL VOLUME 96.1 fL CALC (80.0-100.0); MEAN CORPUSCULAR HGB 29.5 pG CALC (26.0-32.0); MEAN CORPUSCULAR HGB CONC 30.7 g/dL CAL (32.0-36.0); RED BLOOD COUNT 3.86 mill/uL (4.20-5.60); RED CELL DISTRI WIDTH 13.4 % (11.5-15.5)
--- NOTE | 2021-09-09 07:30 | NUR ---
RECIEVED REPORT FROM TEJ REEVES
--- NOTE | 2021-09-09 07:45 | NUR ---
PT RESTING IN SEMI FOWLERS POSITION. PT IS A/OX3. ASSESSMENT AND VITALS COMPLETED. BP 124/74, HR 70, O2 93% ON ROOM AIR. RESIRATIONS ARE EVEN AND UNLABORED WITH NO DISTRESS NOTED. LUNG SOUNDS ARE DIMINISHED. BOWEL SOUNDS ARE ACTIVE, ABD SOFT. PT STATES SHE IS PASSING GAS, LBM 09/09/20. RIGHT NG TUBED CHECKED FOR PLACEMENT. PULSES ARE STRONG. #22G RFA INFUSING WIHT IVF PER ORDER, SITE REMAINS HEALTHY AND PATENT. SURGICAL SITES TO ABD WITH DERMABOND REMAINS CDI. PT DENIES OF ANY PAINS OR DISCOMFORTS.ALL SAFTEY PRECAUTIONS ARE IN PLACE WITH CALL LIGHT IN REACH. WILL CONTINUE TO MONITOR.
[2021-09-09 07:46] VITALS: BP 124/74
--- NOTE | 2021-09-09 09:07 | NUR ---
DR FAJARDO AND JANIE,ANRP AT BEDSIDE
--- NOTE | 2021-09-09 09:56 | NUR ---
RIGHT NARE NG TUBE REMOVED PER ORDERS. PT TOLERATED WELL. SMALL SIPS OF WATER PROVIDED. PT INSTRUCTED ON CLEAR LIQUID DIET AND SLOWLY ADVANCING. PT VERBLAIZED UNDERSTANDING.
--- NOTE | 2021-09-09 10:20 | NUR ---
PT AMBULTAINAyanna PICKERING WITH PHYSYICAL THERAPY
--- NOTE | 2021-09-09 11:43 | NUR ---
S- pt reported walking down wild with DOCUMENT IMAGE TECHNICIAN last pm to window and back with walker. 0- Pt resting in bed with nursing giving meds. She moved supine to sit and transferred on and off commode x 2 with supervision only. Pt ambulated 1x 40' with min assit of 1 and 1 x 75' with RW and SBA. Pt instructed in proper use of RW and encouraged to take larger steps (step small and shuffled). LE ex performed in sitting x 10 reps. Standing up on toes and mini squats 3-5 reps and then pt c/o fatigue. Written ex given and explained to pt. BP 132/82 to 120/83, HR 79-78, 02 sats on RA 94-93%. Time spent with pt 45 min A- pt with slight decrease balance. [facility] remains at [facility] Home health P- Will follow per POC
[2021-09-09 11:48] VITALS: BP 128/83
--- NOTE | 2021-09-09 12:38 | NUR ---
PT SITTING UP IN RECYLINER WATCHING TV. RESPIRATIONS ARE EVEN AND UNLABORED ON ROOM AIR. #22G RFA REMAINS IN PLACE. PT DENIES OF ANY PAINS OR DISCOMFORTS AT THIS TIME. ALL SAFTEY PRECAUTIONS ARE IN PLACE WITH CALL LIGHT IN REACH. WILL CONTINUE TO MONITOR
[2021-09-09 15:11] VITALS: BP 102/68
--- NOTE | 2021-09-09 15:37 | NUR ---
PT RESTING IN SEMI FOWLERS POSITION. RESPIRATIONS ARE EVEN AND UNLABORED ON ROOM AIR. #22G RFA INFUSING WITH IVF PER ORDER, SITE REMAINS HEALTHY AND PATENT. PT DENIES OF ANY PAINS OR DISCOMFORTS. PT STATES SHE HAS BEEN DOING OK WITH CLEAR LIQUID BUT DOES NOT LIKE ANY BROUTH, UNABLE TO KEEP IT DOWN PER PT. PT STATES SHE DOES WELL WITH JELLO AND ITALIN ICE. PT DENIES OF ANY NEEDS. ALL SAFTEY PRECAUTIONS ARE IN PLACE WITH CALL LIGHT IN REACH. WILL CONTINUE TO MONITOR
--- NOTE | 2021-09-09 18:55 | NUR ---
REPORT RECEIVED FROM Camilla SY LPN
[2021-09-09 19:05] VITALS: BP 108/63
--- NOTE | 2021-09-09 19:30 | NUR ---
PATIENT IN SHOWER.
--- NOTE | 2021-09-10 04:00 | NUR ---
PATIENT UP TO THE RESTROOM. STEADY GAIT. CALL LIGHT AND BEDSIDE TABLE WIHTIN REACH.
[2021-09-10 04:27] VITALS: BP 113/82
[2021-09-10 05:24] LABS: HEMATOCRIT 35.6 % (37.0-47.0); HEMOGLOBIN 11.3 g/dl (12.0-16.0); MEAN CELL VOLUME 94.7 fL CALC (80.0-100.0); MEAN CORPUSCULAR HGB 30.1 pG CALC (26.0-32.0); MEAN CORPUSCULAR HGB CONC 31.7 g/dL CAL (32.0-36.0); RED BLOOD COUNT 3.76 mill/uL (4.20-5.60); RED CELL DISTRI WIDTH 13.3 % (11.5-15.5)
[2021-09-10 05:31] LABS: ANION GAP 9 (6-22 (CALC)); BUN 8 mg/dL (7-17); BUN/CREATININE RATIO 11 (12-20 (CALC)); CARBON DIOXIDE 29 mmol/l (22-30); CHLORIDE 103 mmol/l (95-108); CREATININE 0.7 mg/dL (0.5-1.0); GFR > 60 ML/MIN (>=60 (CALC)); GFR FOR AFR.AMER. > 60 ML/MIN (>=60 (CALC)); MAGNESIUM 1.9 mg/dL (1.6-2.3); POTASSIUM 3.4 mmol/l (3.5-5.1); SODIUM 138 mmol/l (137-146)
--- NOTE | 2021-09-10 07:00 | NUR ---
RECIEVED REPORT FROM TEJ EDMONDS
[2021-09-10 07:24] VITALS: BP 99/59
--- NOTE | 2021-09-10 07:24 | NUR ---
PT RESTING IN SEMI FOWLERS POSITION. PT IS A/OX3. ASSESSMENT AND VITALS COMPLETED. BP 99/59, HR 68, O2 94% ON ROOM AIR. RESPIRATIONS ARE EVEN AND UNLABORED ON ROOM AIR. LUNG SOUNDS ARE CLEAR. HERT RHYTHM NORMAL. BOWEL SOUNDS ARE ACTIVE, LBM 09/09/21. PULSES STRONG. #22G RFA INFUSING WITH IVF PER ORDER, SITE PATENT. SKIN INTACT. SURGICAL SITES TO ABD WITH DERMABOND REMAINS CDI. PT STATES SHE IS TOLERATING CLEAR LIQUIDS WELL. ACCUCHECK REUSLTING IN 116, NO COVERAGE. ALL SAFETY PRECAUTIONS ARE IN PLACE WITH CALL LIGHT IN REACH. WILL CONTINUE TO MONITOR
[2021-09-10 08:25] VITALS: BP 123/75
--- NOTE | 2021-09-10 08:25 | NUR ---
REASSESSMENT OF BP RESULTIG IN 123/75, HR 74. MOLRNING MEDS TO BE GIVEN
--- NOTE | 2021-09-10 09:17 | NUR ---
PT AMBULATING HALLS WITH PHYSICAL THERAPIST
--- NOTE | 2021-09-10 09:30 | NUR ---
DR FAJARDO AND JANIE,ANRP AT BEDSIDE
--- NOTE | 2021-09-10 10:35 | NUR ---
S- pt reported doing ex and walking. Stated she get to eat food for lunch today. 0- Pt seen for treatment this am. She was resting in bed without complaints voiced. Pt moved supine to sit and transferred to commode independently. She ambulated with contact supervision 1 x 150 and 1 x 100' with no LOB noted. sitting and standing exercise were performed x 10 reps each. HR 68-80, BP 119/78 02 sats 94 to 96%. Time spent with pt 45 min A- pt balance improved. [facility] 21 home P- Will follow per POC.
[2021-09-10 11:31] VITALS: BP 119/78
--- NOTE | 2021-09-10 12:37 | NUR ---
PT RESTING IN SEMI FOWLERS POSITION WITH EYES CLOSED. RESPIRATIONS ARE EVEN AND UNLABORED WITH NO DISTRESS NOTED. #22G RFA REMAINS IN INFUSING WITH IVF PER ORDER, SITE PATENT. NO SIGNS OF ANY PAINS OR DISCOMFORTS. ALL SAFETY PRECAUTIONS ARE IN PLACE WITH CALL LIGHT IN REACH. WIOLL CONTINUE TO MONITOR.
--- NOTE | 2021-09-10 14:49 | NUR ---
pt medicated with phenergan and xanax per pt request
[2021-09-10 15:11] VITALS: BP 119/78
--- NOTE | 2021-09-10 15:46 | NUR ---
PT SLEEPING IN SEMI FOWLERS POSITION. RESPIRATIONS EVEN AND UNLABORED ON ROOM AIR. #22G RFA INFUSING WITH IVF PER ORDER, SITE REMAINS HEALTHY AND PATENT. NO S/S OF ANY PAINS OR DISCOMFORTS. ALL SAFTEY PRECAUTIONS ARE IN PLACE WITH CALL LIGHT IN REACH. WILL CONTINUE TO MONITOR.
--- NOTE | 2021-09-10 19:40 | NUR ---
REPORT FROM EILEEN FUENTES. ASSUMED PT CARE.
[2021-09-10 20:00] VITALS: BP 110/71
--- NOTE | 2021-09-10 20:45 | NUR ---
PT MEDICATED FOR ABD PAIN AND NAUSEA AT THIS TIME WITH PRN APAP AND ZOFRAN. ABD DISTENDED, SOFT, ACTIVE BOWEL SOUNDS NOTED IN ALL 4 QUADRANTS. PT STATES SHE IS PASSING GAS AND HAD X2 LIQUID BMS TODAY 09/10/21. PT DENIES ANY OTHER CURRENT WANTS OR NEEDS AT THIS TIME. CALL LIGHT WITHIN REACH. WILL CONTINUE TO MONITOR.
--- NOTE | 2021-09-11 00:05 | NUR ---
PT RESTING IN BED WITH EYES CLOSED. NO APPARENT DISTRESS NOTED. RESPIRATIONS EVEN AND UNLABORED. IVF INFUSING WITHOUT DIFFICULTY. CALL LIGHT WITHIN REACH. WILL CONTINUE TO MONITOR.
[2021-09-11 04:00] VITALS: BP 120/73
--- NOTE | 2021-09-11 04:37 | NUR ---
PT ASSISTED TO BSC; VOIDS WITHOUT DIFFICULTY; NO COMPLAINTS OR CONCERNS VOICED; IVF INFUSING WELL; CALL [place] WITHIN REACH; WILL CONTINUE TO MONITOR.
[2021-09-11 07:15] VITALS: BP 124/73
--- NOTE | 2021-09-11 07:15 | NUR ---
PATIENT LAYING IN BE AWAKE AT THIS TIME. PATIENT DENIES ANY PAIN AT THIS TIME TIME. MID-LINE INCISION IS APPROXIMATE AND DERMABOND INTACT. PAYROLL TAX SPECIALIST DONE AT THIS TIME. SIDERAILS ARE UP CALL LIGHT IS WITHIN REACH. LUNG PANTOJA ARE CLEAR.
[2021-09-11 07:16] LABS: HEMATOCRIT 35.9 % (37.0-47.0); MEAN CELL VOLUME 96.8 fL CALC (80.0-100.0); MEAN CORPUSCULAR HGB 29.6 pG CALC (26.0-32.0); MEAN CORPUSCULAR HGB CONC 30.6 g/dL CAL (32.0-36.0); RED BLOOD COUNT 3.71 mill/uL (4.20-5.60); RED CELL DISTRI WIDTH 13.5 % (11.5-15.5)
[2021-09-11 07:23] LABS: ANION GAP 11 (6-22 (CALC)); BUN 5 mg/dL (7-17); BUN/CREATININE RATIO 6 (12-20 (CALC)); CARBON DIOXIDE 29 mmol/l (22-30); CHLORIDE 105 mmol/l (95-108); CREATININE 0.7 mg/dL (0.5-1.0); GFR > 60 ML/MIN (>=60 (CALC)); GFR FOR AFR.AMER. > 60 ML/MIN (>=60 (CALC)); POTASSIUM 3.6 mmol/l (3.5-5.1); SODIUM 141 mmol/l (137-146)
[2021-09-11] MEDS ORDERED: FLORASTOR250 M1 PO (12:10)
[2021-09-11] MEDS ORDERED: ZOFRAN4 MG/TAB PO (12:11)
[2021-09-11] MEDS ORDERED: LORTAB5 PO (12:11)
[2021-09-11] MEDS ORDERED: FLEXERIL5 M1 PO (12:29)
[2021-09-11] MEDS ORDERED: PROTONIX40 M2 PO (12:29)
--- NOTE | 2021-09-11 12:46 | NUR ---
PATIENT D/C AT THIS TIME. PATIENT VERBALIZES UNDERSTANDING OF D/C INSTRUCTIONS AT THIS TIME.
--- NOTE | 2021-09-11 13:31 | NUR ---
Discharge instructions given. Patient verbalizes understanding of same. Discharged in stable condition via Wheelchair to Home with *Other. All belongings sent with pt. PATIENT LEFT AT THIS TIME WITH [facility] TO FOLLOW PATIENT VERBALIZED ALL UNDERSTANDING OF D/C
== END 2021-09-11 10:21 | DRG 336 ==
LOC: ED 11:02 → ED-I 16:00 → ED 16:34 → MS2 16:35
PROVIDERS: Emergency Medicine; Nurse Practitioner; ADMIT Internal Medicine; ATTEND Hospitalist
PROC: 0DNU4ZZ Release Omentum, Percutaneous Endoscopic Approach (ICD-10-PCS; principal; 2021-08-31)
PROC: 0DJD0ZZ Inspection of Lower Intestinal Tract, Open Approach (ICD-10-PCS; 2021-08-31)
DX: K56.52 Intestinal adhesions [bands] with complete obstruction (principal); N39.0 Urinary tract infection, site not specified; E87.1 Hypo-osmolality and hyponatremia; K91.89 Other postprocedural complications and disorders of digestive system; K56.7 Ileus, unspecified; I10 Essential (primary) hypertension; E11.9 Type 2 diabetes mellitus without complications; J44.9 Chronic obstructive pulmonary disease, unspecified; F41.9 Anxiety disorder, unspecified; F32.A Depression, unspecified; K21.9 Gastro-esophageal reflux disease without esophagitis; E78.00 Pure hypercholesterolemia, unspecified; E03.9 Hypothyroidism, unspecified; F17.200 Nicotine dependence, unspecified, uncomplicated; B96.20 Unspecified Escherichia coli [E. coli] as the cause of diseases classified elsewhere; Y83.8 Other surgical procedures as the cause of abnormal reaction of the patient, or of later complication, without mention of misadventure at the time of the procedure; Z85.42 Personal history of malignant neoplasm of other parts of uterus; Z79.84 Long term (current) use of oral hypoglycemic drugs; Z90.710 Acquired absence of both cervix and uterus; Z86.73 Personal history of transient ischemic attack (TIA), and cerebral infarction without residual deficits; Z20.822 Contact with and (suspected) exposure to COVID-19
CPT/HCPCS: J0131; J1650; J3475; Q9967; S0164

== ENCOUNTER 2022-03-11 14:59 | Emergency (ER) | payer MEDICARE, MEDICAID ==
[~2022-03-11] VITALS: Ht 167.6 cm; Wt 90.0 kg
[~2022-03-11 14:59] MED LIST changes: +ACETAMIN500 M2 PO; +FLORASTOR250 M1 PO; +PROTONIX40 M2 PO
[2022-03-11 15:55] VITALS: BP 113/71
[2022-03-11 16:15] LABS: HEMATOCRIT 41.2 % (37.0-47.0); HEMOGLOBIN 13.3 g/dl (12.0-16.0); IMMATURE GRANULOCYTES 0.2 % (0.0-5.0); MEAN CELL VOLUME 91.4 fL CALC (80.0-100.0); MEAN CORPUSCULAR HGB 29.5 pG CALC (26.0-32.0); MEAN CORPUSCULAR HGB CONC 32.3 g/dL CAL (32.0-36.0); NEUT# 5.66 thou/uL (2.00-7.15); RED BLOOD COUNT 4.51 mill/uL (4.20-5.60)
[2022-03-11 16:17] LABS: URINE BILIRUBIN - DIPSTICK NEGATIVE (NEGATIVE); URINE BLOOD DIPSTICK NEGATIVE (NEGATIVE); URINE COLOR YELLOW; URINE GLUCOSE - DIPSTICK NEGATIVE (NEGATIVE); URINE KETONE NEGATIVE (NEGATIVE); URINE LEUK ESTERASE TRACE (NEGATIVE); URINE PROTEIN - DIPSTICK NEGATIVE (NEG-TRACE); URINE SPECIFIC GRAVITY 1.015; URINE UROBILINOGEN - DIPSTICK 0.2 E.U./dL (0.2)
[2022-03-11 16:18] LABS: URINE NITRITE - DIPSTICK NEGATIVE (Negative)
[2022-03-11 16:38] LABS: ALBUMIN 4.3 g/dL (3.2-5.0); ALKALINE PHOSPHATASE 115 u/l (38-126); ANION GAP 10 (6-22 (CALC)); BILIRUBIN, TOTAL 0.3 mg/dL (0.0-1.4); BUN 12 mg/dL (7-17); BUN/CREATININE RATIO 15 (12-20 (CALC)); CARBON DIOXIDE 35 mmol/l (22-30); CHLORIDE 93 mmol/l (95-108); CREATININE 0.8 mg/dL (0.5-1.0); GFR FOR AFR.AMER. > 60 ML/MIN (>=60 (CALC)); GFR OTHER RACES > 60 ML/MIN (>=60 (CALC)); LIPASE 52 u/l (23-300); POTASSIUM 3.1 mmol/l (3.5-5.1); SGOT/AST 19 u/l (14-36); SODIUM 134 mmol/l (137-146); TOTAL PROTEIN 7.7 g/dL (6.3-8.2)
[2022-03-11] MEDS ORDERED: METRONIDAZOLE500 MG PO ×3 (19:01→19:18)
[2022-03-11] MEDS ORDERED: LORTAB5 PO ×3 (19:07→19:18)
== END 2022-03-11 19:37 | disposition home or self-care (01) ==
LOC: ED 14:59
PROVIDERS: Nurse Practitioner
DX: A59.01 Trichomonal vulvovaginitis (principal); I10 Essential (primary) hypertension; E11.9 Type 2 diabetes mellitus without complications; J44.9 Chronic obstructive pulmonary disease, unspecified; E78.5 Hyperlipidemia, unspecified; Z79.84 Long term (current) use of oral hypoglycemic drugs; Z86.73 Personal history of transient ischemic attack (TIA), and cerebral infarction without residual deficits; F17.200 Nicotine dependence, unspecified, uncomplicated

== ENCOUNTER 2022-03-25 15:26 | Emergency (ER) | payer MEDICARE, MEDICAID ==
[~2022-03-25] VITALS: Ht 167.6 cm; Wt 100.6 kg
[~2022-03-25 15:26] MED LIST changes: +METRONIDAZOLE500 MG PO
[2022-03-25 15:42] VITALS: BP 111/56
[2022-03-25 16:03] LABS: HEMATOCRIT 37.4 % (37.0-47.0); HEMOGLOBIN 11.7 g/dl (12.0-16.0); IMMATURE GRANULOCYTES 0.2 % (0.0-5.0); MEAN CELL VOLUME 95.4 fL CALC (80.0-100.0); MEAN CORPUSCULAR HGB 29.8 pG CALC (26.0-32.0); MEAN CORPUSCULAR HGB CONC 31.3 g/dL CAL (32.0-36.0); NEUT# 4.65 thou/uL (2.00-7.15); RED BLOOD COUNT 3.92 mill/uL (4.20-5.60)
[2022-03-25 16:09] LABS: ALBUMIN 3.8 g/dL (3.2-5.0); ALKALINE PHOSPHATASE 123 u/l (38-126); ANION GAP 8 (6-22 (CALC)); BILIRUBIN, TOTAL 0.2 mg/dL (0.0-1.4); BUN 11 mg/dL (7-17); BUN/CREATININE RATIO 15 (12-20 (CALC)); CARBON DIOXIDE 26 mmol/l (22-30); CHLORIDE 103 mmol/l (95-108); CREATININE 0.8 mg/dL (0.5-1.0); GFR FOR AFR.AMER. > 60 ML/MIN (>=60 (CALC)); GFR OTHER RACES > 60 ML/MIN (>=60 (CALC)); LIPASE 88 u/l (23-300); POTASSIUM 3.9 mmol/l (3.5-5.1); SGOT/AST 21 u/l (14-36); SODIUM 133 mmol/l (137-146); TOTAL PROTEIN 6.7 g/dL (6.3-8.2)
[2022-03-25 16:34] LABS: URINE BILIRUBIN - DIPSTICK NEGATIVE (NEGATIVE); URINE BLOOD DIPSTICK NEGATIVE (NEGATIVE); URINE COLOR YELLOW; URINE GLUCOSE - DIPSTICK NEGATIVE (NEGATIVE); URINE KETONE NEGATIVE (NEGATIVE); URINE LEUK ESTERASE NEGATIVE (NEGATIVE); URINE NITRITE - DIPSTICK POSITIVE (Negative); URINE PH 6.5 (4.5-8.0); URINE PROTEIN - DIPSTICK NEGATIVE (NEG-TRACE); URINE SPECIFIC GRAVITY 1.025; URINE UROBILINOGEN - DIPSTICK 0.2 E.U./dL (0.2)
[2022-03-25 16:38] VITALS: BP 113/70
[2022-03-25 16:40] LABS: URINE BACTERIA MANY hpf; URINE RBC 0-2 RBC/hpf (0-5); URINE TRANSITIONAL EPI. CELLS RARE hpf
[2022-03-25 17:00] VITALS: BP 122/73
[2022-03-25] MEDS ORDERED: METHOCARBAMOL500 MG PO (17:29)
[2022-03-25] MEDS ORDERED: OMNICEF300 M1 PO (17:29)
[2022-03-25] MEDS ORDERED: NAPROXEN500 MG PO (17:29)
[2022-03-25 17:30] VITALS: BP 126/81
[2022-03-25 18:14] VITALS: BP 126/81
== END 2022-03-25 18:14 | disposition home or self-care (01) ==
LOC: ED 15:26
PROVIDERS: Nurse Practitioner
DX: N39.0 Urinary tract infection, site not specified (principal); M54.50 Low back pain, unspecified; I10 Essential (primary) hypertension; E11.9 Type 2 diabetes mellitus without complications; J44.9 Chronic obstructive pulmonary disease, unspecified; E78.5 Hyperlipidemia, unspecified; F41.9 Anxiety disorder, unspecified; F17.200 Nicotine dependence, unspecified, uncomplicated; B96.20 Unspecified Escherichia coli [E. coli] as the cause of diseases classified elsewhere; Z79.84 Long term (current) use of oral hypoglycemic drugs; Z86.73 Personal history of transient ischemic attack (TIA), and cerebral infarction without residual deficits

== ENCOUNTER 2022-05-29 16:17 | Emergency (ER) | payer MEDICARE, MEDICAID ==
[~2022-05-29] VITALS: Ht 167.6 cm; Wt 97.7 kg
[2022-05-29] VITALS (9 sets, daily range): BP systolic 109–142; BP diastolic 67–95
[~2022-05-29 16:17] MED LIST changes: +METHOCARBAMOL500 MG PO; +OMNICEF300 M1 PO
[2022-05-29 16:37] LABS: HEMATOCRIT 37.8 % (37.0-47.0); HEMOGLOBIN 12.4 g/dl (12.0-16.0); IMMATURE GRANULOCYTES 0.2 % (0.0-5.0); MEAN CORPUSCULAR HGB 29.2 pG CALC (26.0-32.0); MEAN CORPUSCULAR HGB CONC 32.8 g/dL CAL (32.0-36.0); NEUT# 5.61 thou/uL (2.00-7.15); RED BLOOD COUNT 4.24 mill/uL (4.20-5.60); RED CELL DISTRI WIDTH 13.4 % (11.5-15.5)
[2022-05-29 16:38] LABS: MEAN CELL VOLUME 89.2 fL CALC (80.0-100.0)
[2022-05-29 16:54] LABS: ALBUMIN 4.5 g/dL (3.2-5.0); ALKALINE PHOSPHATASE 107 u/l (38-126); BILIRUBIN, TOTAL 0.2 mg/dL (0.0-1.4); BUN 10 mg/dL (7-17); BUN/CREATININE RATIO 15 (12-20 (CALC)); CARBON DIOXIDE 29 mmol/l (22-30); CREATININE 0.7 mg/dL (0.5-1.0); GFR FOR AFR.AMER. > 60 ML/MIN (>=60 (CALC)); GFR OTHER RACES > 60 ML/MIN (>=60 (CALC)); LIPASE 29 u/l (23-300); POTASSIUM 3.6 mmol/l (3.5-5.1); SGOT/AST 25 u/l (14-36); SODIUM 132 mmol/l (137-146)
[2022-05-29 16:55] LABS: ANION GAP 17 (6-22 (CALC)); CHLORIDE 90 mmol/l (95-108)
[2022-05-29 17:32] LABS: URINE BILIRUBIN - DIPSTICK NEGATIVE (NEGATIVE); URINE BLOOD DIPSTICK NEGATIVE (NEGATIVE); URINE COLOR YELLOW; URINE GLUCOSE - DIPSTICK NEGATIVE (NEGATIVE); URINE KETONE NEGATIVE (NEGATIVE); URINE LEUK ESTERASE NEGATIVE (NEGATIVE); URINE NITRITE - DIPSTICK NEGATIVE (Negative); URINE PH 6.5 (4.5-8.0); URINE PROTEIN - DIPSTICK NEGATIVE (NEG-TRACE); URINE UROBILINOGEN - DIPSTICK 0.2 E.U./dL (0.2)
[2022-05-29] MEDS ORDERED: ULTRAM50 M1 PO (20:12)
== END 2022-05-29 21:22 | disposition home or self-care (01) ==
LOC: ED 16:17
PROVIDERS: Family Medicine
DX: S33.5XXA Sprain of ligaments of lumbar spine, initial encounter (principal); I10 Essential (primary) hypertension; E11.9 Type 2 diabetes mellitus without complications; J44.9 Chronic obstructive pulmonary disease, unspecified; E78.5 Hyperlipidemia, unspecified; F41.9 Anxiety disorder, unspecified; F17.200 Nicotine dependence, unspecified, uncomplicated; X58.XXXA Exposure to other specified factors, initial encounter; Z86.73 Personal history of transient ischemic attack (TIA), and cerebral infarction without residual deficits; Z79.84 Long term (current) use of oral hypoglycemic drugs
CPT/HCPCS: Q9967

== ENCOUNTER 2022-06-22 17:42 | Emergency (ER) | payer MEDICARE, MEDICAID ==
[~2022-06-22] VITALS: Ht 167.6 cm; Wt 109.1 kg
[~2022-06-22 17:42] MED LIST changes: +ACTOS15 MG PO; +CELEBREX200 M1 PO; +CLOPIDOGREL; +CYCLOBENZAPRINE10 MG PO; +LEVOTHYROXIN150 MC1 PO; +PHENTERMINE15 MG PO; +PLAVIX75 MG PO
[2022-06-22 18:10] LABS: HEMATOCRIT 38.4 % (37.0-47.0); HEMOGLOBIN 12.4 g/dl (12.0-16.0); IMMATURE GRANULOCYTES 0.2 % (0.0-5.0); MEAN CELL VOLUME 90.1 fL CALC (80.0-100.0); MEAN CORPUSCULAR HGB 29.1 pG CALC (26.0-32.0); MEAN CORPUSCULAR HGB CONC 32.3 g/dL CAL (32.0-36.0); NEUT# 4.47 thou/uL (2.00-7.15); RED BLOOD COUNT 4.26 mill/uL (4.20-5.60); RED CELL DISTRI WIDTH 14.1 % (11.5-15.5)
[2022-06-22 18:15] VITALS: BP 97/61
[2022-06-22 18:28] LABS: INTERNATIONAL NORMALIZED RATIO 0.9 RATIO (0.7-1.3)
[2022-06-22 18:29] LABS: ALBUMIN 4.1 g/dL (3.2-5.0); ALKALINE PHOSPHATASE 112 u/l (38-126); ANION GAP 11 (6-22 (CALC)); BUN 5 mg/dL (7-17); BUN/CREATININE RATIO 9 (12-20 (CALC)); CARBON DIOXIDE 31 mmol/l (22-30); CHLORIDE 95 mmol/l (95-108); CREATININE 0.6 mg/dL (0.5-1.0); GFR FOR AFR.AMER. > 60 ML/MIN (>=60 (CALC)); GFR OTHER RACES > 60 ML/MIN (>=60 (CALC)); POTASSIUM 3.8 mmol/l (3.5-5.1); SGOT/AST 34 u/l (14-36); SODIUM 133 mmol/l (137-146); TOTAL PROTEIN 7.2 g/dL (6.3-8.2)
[2022-06-22 18:31] VITALS: BP 112/70
[2022-06-22 18:41] LABS: MYOGLOBIN 23 ng/mL (0 - 62)
[2022-06-22 18:44] LABS: BILIRUBIN, TOTAL 0.3 mg/dL (0.0-1.4)
[2022-06-22 18:45] VITALS: BP 116/71
[2022-06-22 19:01] VITALS: BP 139/72
[2022-06-22 19:23] VITALS: BP 139/72
== END 2022-06-22 19:25 | disposition short-term general hospital (02) ==
LOC: ED 17:42
PROVIDERS: Nurse Practitioner
DX: I24.9 Acute ischemic heart disease, unspecified (principal); F41.9 Anxiety disorder, unspecified; I10 Essential (primary) hypertension; J44.9 Chronic obstructive pulmonary disease, unspecified; E78.5 Hyperlipidemia, unspecified; E11.9 Type 2 diabetes mellitus without complications; F17.200 Nicotine dependence, unspecified, uncomplicated; Z86.73 Personal history of transient ischemic attack (TIA), and cerebral infarction without residual deficits; Z79.84 Long term (current) use of oral hypoglycemic drugs

== ENCOUNTER 2022-09-16 14:23 | Emergency (ER) | payer MEDICARE, MEDICAID ==
[2022-09-16] VITALS (8 sets, daily range): BP systolic 133–145; BP diastolic 72–89
[~2022-09-16] VITALS: Ht 162.6 cm; Wt 90.9 kg
[~2022-09-16 14:23] MED LIST changes: +ALPRAZOLAM0.5 MG PO; +BENADRYL 25MG C25 MG PO; +FLUOXETINE10 M2 PO; +MAXZIDE-25MG1 COMBO PO; +RISPERIDONE2 MG PO; +TRAZODONE50 MG PO; +TRILEPTAL300 M1 PO; +ZOLPIDEM5 M1 PO
[2022-09-16 16:29] LABS: BASO% 0.5 % (0-3); EOS% 2.6 % (0-8); HEMOGLOBIN 12.2 g/dl (12.0-16.0); IMMATURE GRANULOCYTES 0.2 % (0.0-5.0); LYMPH% 24.6 % (15-41); MEAN CELL VOLUME 90.7 fL CALC (80.0-100.0); MEAN CORPUSCULAR HGB 29.1 pG CALC (26.0-32.0); MEAN CORPUSCULAR HGB CONC 32.1 g/dL CAL (32.0-36.0); MONO% 8.1 % (2-13); NEUT# 7.06 thou/uL (2.00-7.15); RED BLOOD COUNT 4.19 mill/uL (4.20-5.60); RED CELL DISTRI WIDTH 13.3 % (11.5-15.5)
[2022-09-16 16:31] LABS: GFR FOR AFR.AMER. > 60 ML/MIN (>=60 (CALC)); GFR OTHER RACES > 60 ML/MIN (>=60 (CALC))
[2022-09-16 16:46] LABS: INTERNATIONAL NORMALIZED RATIO 0.9 RATIO (0.7-1.3); PROTHROMBIN TIME 9.1 SECONDS (9.0-12.5)
[2022-09-16 16:47] LABS: LIPASE 26 u/l (23-300)
[2022-09-16 16:58] LABS: ALBUMIN 4.5 g/dL (3.2-5.0); ALKALINE PHOSPHATASE 103 u/l (38-126); ANION GAP 12 (6-22 (CALC)); BILIRUBIN, TOTAL 0.2 mg/dL (0.0-1.4); BUN 8 mg/dL (7-17); BUN/CREATININE RATIO 11 (12-20 (CALC)); CARBON DIOXIDE 31 mmol/l (22-30); CHLORIDE 94 mmol/l (95-108); CREATININE 0.7 mg/dL (0.5-1.0); GFR FOR AFR.AMER. > 60 ML/MIN (>=60 (CALC)); GFR OTHER RACES > 60 ML/MIN (>=60 (CALC)); POTASSIUM 3.9 mmol/l (3.5-5.1); SGOT/AST 22 u/l (14-36); SODIUM 133 mmol/l (137-146); TOTAL PROTEIN 7.7 g/dL (6.3-8.2)
[2022-09-16 17:12] LABS: URINE BILIRUBIN - DIPSTICK NEGATIVE (NEGATIVE); URINE BLOOD DIPSTICK NEGATIVE (NEGATIVE); URINE COLOR YELLOW; URINE GLUCOSE - DIPSTICK NEGATIVE (NEGATIVE); URINE KETONE NEGATIVE (NEGATIVE); URINE LEUK ESTERASE NEGATIVE (NEGATIVE); URINE NITRITE - DIPSTICK POSITIVE (Negative); URINE PH 7.5 (4.5-8.0); URINE PROTEIN - DIPSTICK NEGATIVE (NEG-TRACE); URINE SPECIFIC GRAVITY 1.015; URINE UROBILINOGEN - DIPSTICK 0.2 E.U./dL (0.2)
[2022-09-16 17:16] LABS: URINE BACTERIA MANY hpf; URINE RBC 0-2 RBC/hpf (0-5); URINE SQUAMOUS EPITHELIAL CELL FEW EPI/hpf (0-FEW)
[2022-09-16] MEDS ORDERED: TRAMADOL HYDROC50 M1 PO (19:01)
== END 2022-09-16 19:50 | disposition home or self-care (01) ==
LOC: ED 14:23
PROVIDERS: Family Medicine
DX: R10.11 Right upper quadrant pain (principal); R10.31 Right lower quadrant pain; R07.81 Pleurodynia; I10 Essential (primary) hypertension; E11.9 Type 2 diabetes mellitus without complications; E03.9 Hypothyroidism, unspecified; J44.9 Chronic obstructive pulmonary disease, unspecified; F41.9 Anxiety disorder, unspecified; E78.5 Hyperlipidemia, unspecified; F17.200 Nicotine dependence, unspecified, uncomplicated; Z86.73 Personal history of transient ischemic attack (TIA), and cerebral infarction without residual deficits; Z79.02 Long term (current) use of antithrombotics/antiplatelets; Z79.84 Long term (current) use of oral hypoglycemic drugs
CPT/HCPCS: Q9967

== ENCOUNTER 2022-10-08 22:30 | Emergency (ER) | payer MEDICARE, MEDICAID ==
[~2022-10-08] VITALS: Ht 162.6 cm; Wt 100.0 kg
[2022-10-09 00:48] LABS: URINE BILIRUBIN - DIPSTICK NEGATIVE (NEGATIVE); URINE BLOOD DIPSTICK NEGATIVE (NEGATIVE); URINE COLOR YELLOW; URINE GLUCOSE - DIPSTICK NEGATIVE (NEGATIVE); URINE KETONE NEGATIVE (NEGATIVE); URINE LEUK ESTERASE NEGATIVE (NEGATIVE); URINE NITRITE - DIPSTICK POSITIVE (Negative); URINE PROTEIN - DIPSTICK NEGATIVE (NEG-TRACE); URINE UROBILINOGEN - DIPSTICK 0.2 E.U./dL (0.2)
[2022-10-09 00:50] LABS: URINE BACTERIA MANY hpf; URINE SQUAMOUS EPITHELIAL CELL FEW EPI/hpf (0-FEW)
[2022-10-09] MEDS ORDERED: BACTRIM DS1 TAB PO (00:55)
[2022-10-09 01:01] VITALS: BP 134/67
== END 2022-10-09 01:10 | disposition home or self-care (01) ==
LOC: ED 22:30
PROVIDERS: Family Medicine
DX: S33.5XXA Sprain of ligaments of lumbar spine, initial encounter (principal); N39.0 Urinary tract infection, site not specified; I10 Essential (primary) hypertension; E11.9 Type 2 diabetes mellitus without complications; J44.9 Chronic obstructive pulmonary disease, unspecified; F41.9 Anxiety disorder, unspecified; E78.5 Hyperlipidemia, unspecified; F17.200 Nicotine dependence, unspecified, uncomplicated; B96.1 Klebsiella pneumoniae [K. pneumoniae] as the cause of diseases classified elsewhere; W18.39XA Other fall on same level, initial encounter; Y92.003 Bedroom of unspecified non-institutional (private) residence as the place of occurrence of the external cause; Z86.73 Personal history of transient ischemic attack (TIA), and cerebral infarction without residual deficits; Z79.84 Long term (current) use of oral hypoglycemic drugs

== ENCOUNTER 2022-10-12 16:39 | Inpatient (IN) | payer MEDICARE, MEDICAID ==
[2022-10-12] VITALS (18 sets, daily range): BP systolic 77–168; BP diastolic 60–88
[~2022-10-12] VITALS: Ht 162.6 cm; Wt 105.4 kg
[2022-10-12 17:27] LABS: BASO% 0.3 % (0-3); HEMATOCRIT 38.1 % (37.0-47.0); HEMOGLOBIN 12.3 g/dl (12.0-16.0); IMMATURE GRANULOCYTES 0.1 % (0.0-5.0); LYMPH% 24.7 % (15-41); MEAN CELL VOLUME 88.4 fL CALC (80.0-100.0); MEAN CORPUSCULAR HGB 28.5 pG CALC (26.0-32.0); MEAN CORPUSCULAR HGB CONC 32.3 g/dL CAL (32.0-36.0); MONO% 11.1 % (2-13); NEUT# 5.31 thou/uL (2.00-7.15); NEUT% 61.8 % (42-76); RED BLOOD COUNT 4.31 mill/uL (4.20-5.60); RED CELL DISTRI WIDTH 13.6 % (11.5-15.5)
[2022-10-12 17:35] LABS: ALBUMIN 4.5 g/dL (3.2-5.0); ALKALINE PHOSPHATASE 97 u/l (38-126); ANION GAP 11 (6-22 (CALC)); BILIRUBIN, TOTAL 0.2 mg/dL (0.02-1.3); BUN 9 mg/dL (7-17); BUN/CREATININE RATIO 10 (12-20 (CALC)); CARBON DIOXIDE 31 mmol/l (22-30); CHLORIDE 90 mmol/l (95-108); CREATININE 0.9 mg/dL (0.5-1.0); GFR FOR AFR.AMER. > 60 ML/MIN (>=60 (CALC)); GFR OTHER RACES > 60 ML/MIN (>=60 (CALC)); LIPASE 42 u/l (23-300); POTASSIUM 3.8 mmol/l (3.5-5.1); SODIUM 128 mmol/l (137-146); TOTAL PROTEIN 7.7 g/dL (6.3-8.2)
[2022-10-12 17:36] LABS: ETHYL ALCOHOL 0 mg/dl (0-30)
[2022-10-12 17:37] LABS: SGOT/AST 41 u/l (14-36)
[2022-10-12 17:42] LABS: INTERNATIONAL NORMALIZED RATIO 0.9 RATIO (0.7-1.3); PROTHROMBIN TIME 9.2 SECONDS (9.0-12.5)
[2022-10-12 18:17] LABS: URINE BILIRUBIN - DIPSTICK NEGATIVE (NEGATIVE); URINE BLOOD DIPSTICK NEGATIVE (NEGATIVE); URINE COLOR YELLOW; URINE GLUCOSE - DIPSTICK NEGATIVE (NEGATIVE); URINE KETONE NEGATIVE (NEGATIVE); URINE LEUK ESTERASE NEGATIVE (NEGATIVE); URINE PH 7.5 (4.5-8.0); URINE PROTEIN - DIPSTICK NEGATIVE (NEG-TRACE); URINE SPECIFIC GRAVITY 1.015; URINE UROBILINOGEN - DIPSTICK 0.2 E.U./dL (0.2)
[2022-10-12 18:18] LABS: URINE NITRITE - DIPSTICK NEGATIVE (Negative)
[2022-10-13 04:00] VITALS: BP 126/72
[2022-10-13 06:00] LABS: BASO% 0.6 % (0-3); EOS% 2.7 % (0-8); HEMATOCRIT 35.8 % (37.0-47.0); HEMOGLOBIN 11.6 g/dl (12.0-16.0); IMMATURE GRANULOCYTES 0.3 % (0.0-5.0); LYMPH% 35.5 % (15-41); MEAN CELL VOLUME 89.3 fL CALC (80.0-100.0); MEAN CORPUSCULAR HGB 28.9 pG CALC (26.0-32.0); MEAN CORPUSCULAR HGB CONC 32.4 g/dL CAL (32.0-36.0); MONO% 11.4 % (2-13); NEUT# 3.54 thou/uL (2.00-7.15); NEUT% 49.5 % (42-76); RED BLOOD COUNT 4.01 mill/uL (4.20-5.60); RED CELL DISTRI WIDTH 13.7 % (11.5-15.5)
[2022-10-13 06:01] VITALS: BP 95/71
[2022-10-13 06:05] VITALS: BP 95/71
[2022-10-13 06:19] LABS: ALKALINE PHOSPHATASE 75 u/l (38-126); ANION GAP 9 (6-22 (CALC)); BILIRUBIN, TOTAL 0.2 mg/dL (0.02-1.3); BUN 6 mg/dL (7-17); BUN/CREATININE RATIO 8 (12-20 (CALC)); CARBON DIOXIDE 31 mmol/l (22-30); CHLORIDE 94 mmol/l (95-108); CREATININE 0.7 mg/dL (0.5-1.0); GFR FOR AFR.AMER. > 60 ML/MIN (>=60 (CALC)); GFR OTHER RACES > 60 ML/MIN (>=60 (CALC)); POTASSIUM 3.3 mmol/l (3.5-5.1); SGOT/AST 33 u/l (14-36); SODIUM 131 mmol/l (137-146); TOTAL PROTEIN 6.7 g/dL (6.3-8.2)
[2022-10-13 11:01] VITALS: BP 119/65
[2022-10-13 14:10] VITALS: BP 115/71
[2022-10-13 20:02] VITALS: BP 118/57
[2022-10-14 00:22] VITALS: BP 121/61
[2022-10-14 03:40] VITALS: BP 135/69
[2022-10-14 06:02] LABS: BASO% 0.6 % (0-3); EOS% 2.9 % (0-8); HEMATOCRIT 40.7 % (37.0-47.0); HEMOGLOBIN 12.7 g/dl (12.0-16.0); IMMATURE GRANULOCYTES 0.3 % (0.0-5.0); LYMPH% 38.9 % (15-41); MEAN CELL VOLUME 92.5 fL CALC (80.0-100.0); MEAN CORPUSCULAR HGB 28.9 pG CALC (26.0-32.0); MEAN CORPUSCULAR HGB CONC 31.2 g/dL CAL (32.0-36.0); MONO% 13.4 % (2-13); NEUT# 3.15 thou/uL (2.00-7.15); NEUT% 43.9 % (42-76); RED BLOOD COUNT 4.4 mill/uL (4.20-5.60)
[2022-10-14 06:23] LABS: ALKALINE PHOSPHATASE 71 u/l (38-126); BILIRUBIN, TOTAL 0.2 mg/dL (0.02-1.3); BUN 11 mg/dL (7-17); BUN/CREATININE RATIO 15 (12-20 (CALC)); CHLORIDE 104 mmol/l (95-108); CREATININE 0.7 mg/dL (0.5-1.0); GFR FOR AFR.AMER. > 60 ML/MIN (>=60 (CALC)); GFR OTHER RACES > 60 ML/MIN (>=60 (CALC)); SGOT/AST 28 u/l (14-36); SODIUM 137 mmol/l (137-146); TOTAL PROTEIN 6.7 g/dL (6.3-8.2)
[2022-10-14 06:30] LABS: ANION GAP 14 (6-22 (CALC)); CARBON DIOXIDE 24 mmol/l (22-30); POTASSIUM 4.7 mmol/l (3.5-5.1)
[2022-10-14 06:32] VITALS: BP 131/68
[2022-10-14 10:49] VITALS: BP 132/63
[2022-10-14 10:50] VITALS: BP 132/63
== END 2022-10-14 13:30 | disposition home health service (06) | DRG 93 ==
LOC: ED 16:39 → ED-I 16:54 → ED 19:16 → MS2 19:17
PROVIDERS: Nurse Practitioner; Nurse Practitioner Family; ADMIT Internal Medicine; ATTEND Internal Medicine
DX: G92.8 Other toxic encephalopathy (principal); T43.505A Adverse effect of unspecified antipsychotics and neuroleptics, initial encounter; I10 Essential (primary) hypertension; J44.9 Chronic obstructive pulmonary disease, unspecified; E11.9 Type 2 diabetes mellitus without complications; E03.9 Hypothyroidism, unspecified; E78.00 Pure hypercholesterolemia, unspecified; F41.9 Anxiety disorder, unspecified; K21.9 Gastro-esophageal reflux disease without esophagitis; F17.200 Nicotine dependence, unspecified, uncomplicated; F31.9 Bipolar disorder, unspecified; R10.9 Unspecified abdominal pain; G89.29 Other chronic pain; Z79.84 Long term (current) use of oral hypoglycemic drugs; Z86.73 Personal history of transient ischemic attack (TIA), and cerebral infarction without residual deficits; Z79.899 Other long term (current) drug therapy; Z85.42 Personal history of malignant neoplasm of other parts of uterus

== ENCOUNTER 2023-01-03 15:24 | Emergency (ER) | payer MEDICARE, MEDICAID ==
[~2023-01-03] VITALS: Ht 162.6 cm; Wt 113.3 kg
[2023-01-03 15:35] VITALS: BP 132/82
[2023-01-03 15:44] VITALS: BP 112/71
[2023-01-03] MEDS ORDERED: CLINDAMYCIN HY150 MG PO (15:48)
[2023-01-03] MEDS ORDERED: TYLENOL # 31 TA1 PO (15:48)
[2023-01-03 15:53] VITALS: BP 112/71
== END 2023-01-03 16:02 | disposition home or self-care (01) ==
LOC: ED 15:24
DX: S03.2XXA Dislocation of tooth, initial encounter (principal); I10 Essential (primary) hypertension; E11.9 Type 2 diabetes mellitus without complications; J44.9 Chronic obstructive pulmonary disease, unspecified; E78.5 Hyperlipidemia, unspecified; F41.9 Anxiety disorder, unspecified; F17.200 Nicotine dependence, unspecified, uncomplicated; X58.XXXA Exposure to other specified factors, initial encounter; Z86.73 Personal history of transient ischemic attack (TIA), and cerebral infarction without residual deficits; Z79.84 Long term (current) use of oral hypoglycemic drugs

== ENCOUNTER 2023-01-16 17:19 | Emergency (ER) | payer MEDICARE, MEDICAID ==
[~2023-01-16] VITALS: Ht 162.6 cm; Wt 95.0 kg
[2023-01-16] VITALS (10 sets, daily range): BP systolic 103–129; BP diastolic 60–113
[~2023-01-16 17:19] MED LIST changes: +CLINDAMYCIN HY150 MG PO
[2023-01-16] MEDS ORDERED: NAPROXEN500 MG PO (19:29)
== END 2023-01-16 20:01 | disposition home or self-care (01) ==
LOC: ED 17:19
DX: S90.32XA Contusion of left foot, initial encounter (principal); I10 Essential (primary) hypertension; E11.9 Type 2 diabetes mellitus without complications; J44.9 Chronic obstructive pulmonary disease, unspecified; F41.9 Anxiety disorder, unspecified; E78.5 Hyperlipidemia, unspecified; Z86.73 Personal history of transient ischemic attack (TIA), and cerebral infarction without residual deficits; Z79.84 Long term (current) use of oral hypoglycemic drugs; F17.200 Nicotine dependence, unspecified, uncomplicated; W20.8XXA Other cause of strike by thrown, projected or falling object, initial encounter

== ENCOUNTER 2023-04-12 10:40 | Emergency (ER) | payer MEDICARE, MEDICAID ==
[2023-04-12] VITALS (13 sets, daily range): BP systolic 99–135; BP diastolic 61–77
[~2023-04-12] VITALS: Ht 162.6 cm; Wt 85.7 kg
[2023-04-12 11:56] LABS: BASO% 0.4 % (0-3); EOS% 1.4 % (0-8); HEMATOCRIT 37.9 % (37.0-47.0); HEMOGLOBIN 12.7 g/dl (12.0-16.0); IMMATURE GRANULOCYTES 0.3 % (0.0-5.0); LYMPH% 24.3 % (15-41); MEAN CELL VOLUME 87.7 fL CALC (80.0-100.0); MEAN CORPUSCULAR HGB 29.4 pG CALC (26.0-32.0); MEAN CORPUSCULAR HGB CONC 33.5 g/dL CAL (32.0-36.0); MONO% 10.3 % (2-13); NEUT# 6.76 thou/uL (2.00-7.15); NEUT% 63.3 % (42-76); RED BLOOD COUNT 4.32 mill/uL (4.20-5.60); RED CELL DISTRI WIDTH 14.3 % (11.5-15.5)
[2023-04-12 12:08] LABS: ALBUMIN 4.3 g/dL (3.2-5.0); ALKALINE PHOSPHATASE 98 u/l (38-126); ANION GAP 15 (6-22 (CALC)); BILIRUBIN, TOTAL 0.4 mg/dL (0.02-1.3); BUN 6 mg/dL (7-17); BUN/CREATININE RATIO 10 (12-20 (CALC)); CARBON DIOXIDE 27 mmol/l (22-30); CHLORIDE 91 mmol/l (95-108); CREATININE 0.6 mg/dL (0.5-1.0); GFR FOR AFR.AMER. > 60 ML/MIN (>=60 (CALC)); GFR OTHER RACES > 60 ML/MIN (>=60 (CALC)); SGOT/AST 27 u/l (14-36); SODIUM 129 mmol/l (137-146); TOTAL PROTEIN 7.2 g/dL (6.3-8.2)
== END 2023-04-12 14:26 | disposition home or self-care (01) ==
LOC: ED 10:40
PROVIDERS: Family Medicine
DX: S09.90XA Unspecified injury of head, initial encounter (principal); I10 Essential (primary) hypertension; E11.9 Type 2 diabetes mellitus without complications; E78.5 Hyperlipidemia, unspecified; J44.9 Chronic obstructive pulmonary disease, unspecified; F17.210 Nicotine dependence, cigarettes, uncomplicated; E87.1 Hypo-osmolality and hyponatremia; W01.0XXA Fall on same level from slipping, tripping and stumbling without subsequent striking against object, initial encounter; Y92.009 Unspecified place in unspecified non-institutional (private) residence as the place of occurrence of the external cause; Z86.73 Personal history of transient ischemic attack (TIA), and cerebral infarction without residual deficits

== ENCOUNTER 2023-09-06 09:53 | Emergency (ER) | payer MEDICARE, MEDICAID ==
[~2023-09-06] VITALS: Ht 162.6 cm; Wt 108.8 kg
[2023-09-06] VITALS (11 sets, daily range): BP systolic 105–121; BP diastolic 63–83
[~2023-09-06 09:53] MED LIST changes: +ABILIFY5 MG PO; +AMITIZA8 MCG PO; +BREZTRI AEROSPH1 AER; +BUSPAR10 MG PO; +DOXY-CAPS100 MG PO; +DOXYCYCLINE100 MG; +FLUOXETINE HCL40 MG PO; +MAXZIDE PO; +NAPROXEN375 MG PO; +OZEMPIC4 MG PO; +PREDNISONE50 MG PO; +VENTOLIN HFA108 MCG IN
[2023-09-06 10:42] LABS: BASO% 0.4 % (0-3); HEMATOCRIT 40.5 % (37.0-47.0); IMMATURE GRANULOCYTES 0.2 % (0.0-5.0); LYMPH% 18.9 % (15-41); MEAN CELL VOLUME 94.8 fL CALC (80.0-100.0); MEAN CORPUSCULAR HGB 30.4 pG CALC (26.0-32.0); MEAN CORPUSCULAR HGB CONC 32.1 g/dL CAL (32.0-36.0); MONO% 11.6 % (2-13); NEUT# 6.99 thou/uL (2.00-7.15); NEUT% 66.9 % (42-76); RED BLOOD COUNT 4.27 mill/uL (4.20-5.60); RED CELL DISTRI WIDTH 14.1 % (11.5-15.5)
[2023-09-06 10:54] LABS: ALBUMIN 4.2 g/dL (3.2-5.0); ALKALINE PHOSPHATASE 101 u/l (38-126); ANION GAP 11 (6-22 (CALC)); BILIRUBIN, TOTAL 0.7 mg/dL (0.02-1.3); BUN 9 mg/dL (7-17); BUN/CREATININE RATIO 13 (12-20 (CALC)); CARBON DIOXIDE 32 mmol/l (22-30); CHLORIDE 97 mmol/l (95-108); CREATININE 0.7 mg/dL (0.5-1.0); GFR FOR AFR.AMER. > 60 ML/MIN (>=60 (CALC)); GFR OTHER RACES > 60 ML/MIN (>=60 (CALC)); POTASSIUM 2.9 mmol/l (3.5-5.1); SGOT/AST 25 u/l (14-36); SODIUM 137 mmol/l (137-146); TOTAL PROTEIN 7.2 g/dL (6.3-8.2)
[2023-09-06] MEDS ORDERED: PREDNISONE50 MG PO (13:56)
[2023-09-06] MEDS ORDERED: ZPAK PO (13:56)
[2023-09-06] MEDS ORDERED: VENTOLIN HFA108 MCG PO (13:56)
[2023-09-06] MEDS ORDERED: ZOFRAN4 MG/TAB PO (14:21)
[2023-09-06] MEDS ORDERED: K-TAB20 MEQ PO (14:21)
== END 2023-09-06 14:20 | disposition left against medical advice (07) ==
LOC: ED 09:53
PROVIDERS: Family Medicine
DX: J44.1 Chronic obstructive pulmonary disease with (acute) exacerbation (principal); J18.9 Pneumonia, unspecified organism; J44.0 Chronic obstructive pulmonary disease with (acute) lower respiratory infection; E87.6 Hypokalemia; R09.02 Hypoxemia; I10 Essential (primary) hypertension; E03.9 Hypothyroidism, unspecified; F41.9 Anxiety disorder, unspecified; Z86.73 Personal history of transient ischemic attack (TIA), and cerebral infarction without residual deficits; F17.210 Nicotine dependence, cigarettes, uncomplicated; Z88.1 Allergy status to other antibiotic agents; Z88.0 Allergy status to penicillin; Z20.822 Contact with and (suspected) exposure to COVID-19; Z53.29 Procedure and treatment not carried out because of patient's decision for other reasons
CPT/HCPCS: Q9967

== ENCOUNTER 2023-10-03 14:57 | Emergency (ER) | payer MEDICARE, MEDICAID ==
[2023-10-03] VITALS (12 sets, daily range): BP systolic 93–124; BP diastolic 60–75
[~2023-10-03] VITALS: Ht 162.6 cm; Wt 91.0 kg
[~2023-10-03 14:57] MED LIST changes: +K-TAB20 MEQ PO; +VENTOLIN HFA108 MCG PO
[2023-10-03 16:46] LABS: BASO% 0.4 % (0-3); EOS% 2.4 % (0-8); HEMATOCRIT 43.4 % (37.0-47.0); HEMOGLOBIN 13.9 g/dl (12.0-16.0); IMMATURE GRANULOCYTES 0.2 % (0.0-5.0); MEAN CELL VOLUME 93.3 fL CALC (80.0-100.0); MEAN CORPUSCULAR HGB 29.9 pG CALC (26.0-32.0); MONO% 9.9 % (2-13); NEUT# 6.85 thou/uL (2.00-7.15); NEUT% 62.1 % (42-76); RED BLOOD COUNT 4.65 mill/uL (4.20-5.60); RED CELL DISTRI WIDTH 13.9 % (11.5-15.5)
[2023-10-03 16:55] LABS: ALBUMIN 4.6 g/dL (3.2-5.0); ALKALINE PHOSPHATASE 98 u/l (38-126); BILIRUBIN, TOTAL 0.4 mg/dL (0.02-1.3); BUN 9 mg/dL (7-17); BUN/CREATININE RATIO 12 (12-20 (CALC)); CHLORIDE 92 mmol/l (95-108); CREATININE 0.8 mg/dL (0.5-1.0); GFR FOR AFR.AMER. > 60 ML/MIN (>=60 (CALC)); GFR OTHER RACES > 60 ML/MIN (>=60 (CALC)); POTASSIUM 3.1 mmol/l (3.5-5.1); SGOT/AST 25 u/l (14-36); SODIUM 139 mmol/l (137-146); TOTAL PROTEIN 7.5 g/dL (6.3-8.2)
[2023-10-03 17:00] LABS: ANION GAP 10 (6-22 (CALC)); CARBON DIOXIDE 40 mmol/l (22-30)
[2023-10-03 20:23] LABS: URINE BILIRUBIN - DIPSTICK Negative (NEGATIVE); URINE BLOOD DIPSTICK Negative (NEGATIVE); URINE COLOR Yellow; URINE GLUCOSE - DIPSTICK Negative (NEGATIVE); URINE KETONE Negative (NEGATIVE); URINE LEUK ESTERASE Trace (NEGATIVE); URINE NITRITE - DIPSTICK Negative (Negative); URINE PH 7.5 (4.5-8.0); URINE PROTEIN - DIPSTICK Negative (NEG-TRACE); URINE SPECIFIC GRAVITY 1.015; URINE UROBILINOGEN - DIPSTICK 0.2 E.U./dL (0.2)
[2023-10-03] MEDS ORDERED: SODIUM CHLORIDE 0.9% 1,000 ML IV ONE (20:30)
[2023-10-03] MEDS ORDERED: POTASSIUM CHLORIDE 20 MEQ/TAB PO ONE (20:30)
== END 2023-10-03 23:45 | disposition home or self-care (01) ==
LOC: ED 14:57
PROVIDERS: Family Medicine; Nurse Practitioner
DX: R47.81 Slurred speech (principal); R29.810 Facial weakness; T42.4X5A Adverse effect of benzodiazepines, initial encounter; F31.9 Bipolar disorder, unspecified; F20.9 Schizophrenia, unspecified; Z86.73 Personal history of transient ischemic attack (TIA), and cerebral infarction without residual deficits; I10 Essential (primary) hypertension; J44.9 Chronic obstructive pulmonary disease, unspecified; E78.5 Hyperlipidemia, unspecified; E11.9 Type 2 diabetes mellitus without complications; F41.9 Anxiety disorder, unspecified; F17.200 Nicotine dependence, unspecified, uncomplicated; Z79.899 Other long term (current) drug therapy

== ENCOUNTER 2024-02-29 17:00 | Emergency (ER) | payer MEDICARE, MEDICAID ==
[2024-02-29] VITALS (12 sets, daily range): BP systolic 94–135; BP diastolic 54–83
[~2024-02-29] VITALS: Ht 162.6 cm; Wt 85.2 kg
[~2024-02-29 17:00] MED LIST changes: +FOSFOMYCIN TROME3 GM PO; +LEVOTHYROXIN150 MCG PO
[2024-02-29] MEDS ORDERED: KETOROLAC TROMETHAMINE 15 MG/ML SDV IV ONE (17:35)
[2024-02-29] MEDS ORDERED: DEXAMETHASONE SOD. PHOSPHATE 10 MG/ML VIAL IV ONE (17:35)
[2024-02-29] MEDS ORDERED: METHOCARBAMOL 1,000 MG/10 ML VIAL IV ONE (17:35)
[2024-02-29 18:05] LABS: URINE BILIRUBIN - DIPSTICK Negative (NEGATIVE); URINE BLOOD DIPSTICK Negative (NEGATIVE); URINE GLUCOSE - DIPSTICK Negative (NEGATIVE); URINE KETONE Negative (NEGATIVE); URINE LEUK ESTERASE Negative (NEGATIVE); URINE PROTEIN - DIPSTICK Negative (NEG-TRACE); URINE SPECIFIC GRAVITY 1.015; URINE UROBILINOGEN - DIPSTICK 0.2 E.U./dL (0.2)
[2024-02-29 18:08] LABS: URINE COLOR Yellow; URINE NITRITE - DIPSTICK Positive (Negative)
[2024-02-29 18:10] LABS: BASO% 0.4 % (0-3); HEMATOCRIT 38.9 % (37.0-47.0); HEMOGLOBIN 12.6 g/dl (12.0-16.0); IMMATURE GRANULOCYTES 0.1 % (0.0-5.0); MEAN CELL VOLUME 92.6 fL CALC (80.0-100.0); MEAN CORPUSCULAR HGB CONC 32.4 g/dL CAL (32.0-36.0); MONO% 8.1 % (2-13); NEUT# 5.49 thou/uL (2.00-7.15); NEUT% 57.4 % (42-76); RED BLOOD COUNT 4.2 mill/uL (4.20-5.60); RED CELL DISTRI WIDTH 13.5 % (11.5-15.5)
[2024-02-29 18:17] LABS: URINE BACTERIA FEW hpf; URINE RBC 0-2 RBC/hpf (0-5); URINE SQUAMOUS EPITHELIAL CELL FEW EPI/hpf (0-FEW)
[2024-02-29 18:24] LABS: ALBUMIN 4.4 g/dL (3.2-5.0); ALKALINE PHOSPHATASE 85 u/l (38-126); ANION GAP 10 (6-22 (CALC)); BILIRUBIN, TOTAL 0.6 mg/dL (0.02-1.3); BUN 10 mg/dL (7-17); BUN/CREATININE RATIO 12 (12-20 (CALC)); CARBON DIOXIDE 25 mmol/l (22-30); CHLORIDE 103 mmol/l (95-108); CREATININE 0.9 mg/dL (0.5-1.0); ESTIMATED GFR 76 ML/MIN (>=90 (CALC)); POTASSIUM 4.1 mmol/l (3.5-5.1); SGOT/AST 25 u/l (14-36); SODIUM 134 mmol/l (137-146); TOTAL PROTEIN 7.6 g/dL (6.3-8.2)
[2024-02-29] MEDS ORDERED: SULFAMETHOXAZOLE W/TRIMETHOPRI 1 COMBO TAB PO ONE (20:00)
[2024-02-29] MEDS ORDERED: BACTRIM DS1 TAB PO (20:05)
[2024-02-29] MEDS ORDERED: CYCLOBENZAPRINE10 MG PO (20:06)
== END 2024-02-29 20:22 | disposition home or self-care (01) ==
LOC: ED 17:00
PROVIDERS: Nurse Practitioner
DX: N39.0 Urinary tract infection, site not specified (principal); B96.89 Other specified bacterial agents as the cause of diseases classified elsewhere; I10 Essential (primary) hypertension; E11.9 Type 2 diabetes mellitus without complications; F41.9 Anxiety disorder, unspecified; J44.9 Chronic obstructive pulmonary disease, unspecified; E78.5 Hyperlipidemia, unspecified; F17.200 Nicotine dependence, unspecified, uncomplicated; Z86.73 Personal history of transient ischemic attack (TIA), and cerebral infarction without residual deficits

== ENCOUNTER 2024-04-29 12:52 | Observation (INO) | payer MEDICARE, MEDICAID ==
[~2024-04-29] VITALS: Ht 162.6 cm; Wt 90.7 kg
[2024-04-29] VITALS (23 sets, daily range): BP systolic 46–130; BP diastolic 32–73
[2024-04-29] MEDS ORDERED: SODIUM CHLORIDE 0.9% 1,000 ML IV ONE (13:40)
[2024-04-29] MEDS ORDERED: ONDANSETRON HCl 4 MG/2 ML SDV IV ONE (13:40)
[2024-04-29 13:43] LABS: BASO% 0.4 % (0-3); HEMATOCRIT 43.2 % (37.0-47.0); HEMOGLOBIN 13.9 g/dl (12.0-16.0); IMMATURE GRANULOCYTES 0.1 % (0.0-5.0); LYMPH% 24.1 % (15-41); MEAN CELL VOLUME 92.9 fL CALC (80.0-100.0); MEAN CORPUSCULAR HGB 29.9 pG CALC (26.0-32.0); MEAN CORPUSCULAR HGB CONC 32.2 g/dL CAL (32.0-36.0); MONO% 8.6 % (2-13); NEUT# 6.18 thou/uL (2.00-7.15); NEUT% 64.8 % (42-76); RED BLOOD COUNT 4.65 mill/uL (4.20-5.60); RED CELL DISTRI WIDTH 13.8 % (11.5-15.5)
[2024-04-29 13:56] LABS: ALBUMIN 4.5 g/dL (3.2-5.0); ALKALINE PHOSPHATASE 68 u/l (38-126); ANION GAP 10 (6-22 (CALC)); BUN 15 mg/dL (7-17); BUN/CREATININE RATIO 18 (12-20 (CALC)); CARBON DIOXIDE 26 mmol/l (22-30); CHLORIDE 108 mmol/l (95-108); CREATININE 0.8 mg/dL (0.5-1.0); ESTIMATED GFR 88 ML/MIN (>=90 (CALC)); SGOT/AST 25 u/l (14-36); SODIUM 140 mmol/l (137-146); TOTAL PROTEIN 7.8 g/dL (6.3-8.2)
[2024-04-29 13:57] LABS: BILIRUBIN, TOTAL 0.9 mg/dL (0.02-1.3)
[2024-04-29] MEDS ORDERED: OZEMPIC4 MG (13:57)
[2024-04-29 16:21] LABS: URINE BILIRUBIN - DIPSTICK Negative (NEGATIVE); URINE BLOOD DIPSTICK Negative (NEGATIVE); URINE COLOR Yellow; URINE GLUCOSE - DIPSTICK Negative (NEGATIVE); URINE KETONE Negative (NEGATIVE); URINE LEUK ESTERASE Negative (NEGATIVE); URINE NITRITE - DIPSTICK Positive (Negative); URINE PROTEIN - DIPSTICK Negative (NEG-TRACE); URINE UROBILINOGEN - DIPSTICK 0.2 E.U./dL (0.2)
[2024-04-29 16:30] LABS: URINE BACTERIA FEW hpf; URINE RBC 0-2 RBC/hpf (0-5); URINE SQUAMOUS EPITHELIAL CELL FEW EPI/hpf (0-FEW); URINE WBC 0-2 WBC/hpf (0-5)
[2024-04-29] MEDS ORDERED: SODIUM CHLORIDE 0.9% 1,000 ML IV PRN (16:55)
[2024-04-29] MEDS ORDERED: ACETAMINOPHEN 325 MG/TAB PO PRN (16:55)
[2024-04-29] MEDS ORDERED: MAGNESIUM HYDROXIDE 30 ML UDC PO PRN (16:55)
[2024-04-29] MEDS ORDERED: MACROBID100 M1 PO (18:00)
[2024-04-29] MEDS ORDERED: ENOXAPARIN SODIUM 40 MG/0.4 ML SYR SC SCH (21:00)
[2024-04-30] MEDS ORDERED: LEVOTHYROXINE SODIUM 75 MCG/TAB PO SCH (06:00)
== END 2024-04-29 17:45 | disposition left against medical advice (07) ==
LOC: ED 12:52 → ED-I 16:30 → ED 16:49 → MS2 16:50
PROVIDERS: Nurse Practitioner; ADMIT Student in an Organized Health Care Education/Training Program; ATTEND Student in an Organized Health Care Education/Training Program
DX: R41.82 Altered mental status, unspecified (principal); N39.0 Urinary tract infection, site not specified; E11.9 Type 2 diabetes mellitus without complications; J44.9 Chronic obstructive pulmonary disease, unspecified; F31.9 Bipolar disorder, unspecified; K21.9 Gastro-esophageal reflux disease without esophagitis; F17.200 Nicotine dependence, unspecified, uncomplicated; Z86.73 Personal history of transient ischemic attack (TIA), and cerebral infarction without residual deficits; Z79.84 Long term (current) use of oral hypoglycemic drugs

== ENCOUNTER 2024-05-03 12:04 | Emergency (ER) | payer MEDICARE, MEDICAID ==
[2024-05-03] VITALS (14 sets, daily range): BP systolic 105–145; BP diastolic 64–83
[~2024-05-03] VITALS: Ht 162.6 cm; Wt 84.3 kg
[~2024-05-03 12:04] MED LIST changes: +MACROBID100 M1 PO; +OZEMPIC4 MG
[2024-05-03] MEDS ORDERED: HYDROcodone 5 MG/Acetaminophen 325 MG/COMBO PO ONE (12:40)
[2024-05-03] MEDS ORDERED: METHOCARBAMOL 500 MG/TAB PO ONE (12:45)
== END 2024-05-03 15:58 | disposition home or self-care (01) ==
LOC: ED 12:04
DX: M79.18 Myalgia, other site (principal); E11.9 Type 2 diabetes mellitus without complications; I10 Essential (primary) hypertension; J44.9 Chronic obstructive pulmonary disease, unspecified; E78.5 Hyperlipidemia, unspecified; F41.9 Anxiety disorder, unspecified; F17.200 Nicotine dependence, unspecified, uncomplicated; W01.0XXA Fall on same level from slipping, tripping and stumbling without subsequent striking against object, initial encounter; Y92.512 Supermarket, store or market as the place of occurrence of the external cause; Z79.84 Long term (current) use of oral hypoglycemic drugs; Z86.73 Personal history of transient ischemic attack (TIA), and cerebral infarction without residual deficits